=== PATIENT | male | born 1980 | race Caucasian/White ===

== ENCOUNTER 2017-10-16 17:15 | Inpatient (IN) | payer MEDICARE, MEDICAID ==
[2017-10-16 17:36] LABS: ABSOLUTE EOSINOPHILS # (AUTO) 0.4 10^3/uL (0.0-0.6); ABSOLUTE LYMPHOCYTES (AUTO) 1.7 10^3/uL (0.5-4.7); ABSOLUTE MONOCYTES (AUTO) 0.3 10^3/uL (0.1-1.4); ABSOLUTE NEUT (AUTO) 8.2 10^3/uL (1.7-8.2); BASOPHILS % (AUTO) 0.3 % (0-2); EOSINOPHILS % (AUTO) 3.4 % (0-6); HEMATOCRIT 39.4 % (37.9-51.0); HEMOGLOBIN 13.8 g/dL (13.5-17.0); LYMPHOCYTES % (AUTO) 16.3 % (13-45); MEAN CORPUSCULAR VOLUME 92 fl (80-97); MONOCYTES % (AUTO) 2.5 % (3-13); RED BLOOD COUNT 4.31 10^6/uL (4.35-5.55); SEGMENTED NEUTROPHILS % (AUTO) 77.5 % (42-78); WHITE BLOOD COUNT 10.6 10^3/uL (4.0-10.5)
[2017-10-16 17:48] LABS: ALANINE AMINOTRANSFERASE 25 U/L (21-72); ALBUMIN 3.6 g/dL (3.5-5.0); ALKALINE PHOSPHATASE 101 U/L (38-126); ANION GAP 17 (5-19); ASPARTATE AMINO TRANSFERASE 38 U/L (17-59); BILIRUBIN,TOTAL 1.1 mg/dL (0.2-1.3); BLOOD UREA NITROGEN 18 mg/dL (7-20); CALCIUM 8.8 mg/dL (8.4-10.2); CARBON DIOXIDE 27 mmol/L (22-30); CHLORIDE 101 mmol/L (98-107); CREATINE KINASE 201 U/L (55-170); CREATININE RESULT 0.97 mg/dL (0.52-1.25); GLUCOSE 96 mg/dL (75-110); POTASSIUM 3.3 mmol/L (3.6-5.0); SODIUM 144.9 mmol/L (137-145); TOTAL PROTEIN 7.4 g/dL (6.3-8.2)
--- NOTE | 2017-10-16 17:54 | ER Document Report ---
ED Respiratory Problem - General Chief Complaint: Respiratory Distress Stated Complaint: POSSIBLE PNEUMONIA Time Seen by Provider: 10/16/17 17:32 Notes: Patient is a 37-year-old male who presents today stating 4 days ago on he started to have some runny nose, congestion, fever, and cough. He states he went to his primary care physician on Tuesday and was started on Levaquin. No x- ray was performed. Patient states he has been having some increased shortness of breath since that time. EMS called and stated when they arrived on scene the patient was having shortness of breath satting 55% on room air. They provided duo nebs as well as Solu-Medrol. They stated that he had some wheezing initially which improved with the nebulizer. Patient does state he smokes but denies a history of asthma. When I asked directly about chest pain, he states he has some anterior chest discomfort "only when I move". Patient is wheelchair-bound since 2011 secondary to multiple back surgeries according to the patient. Patient denies any abdominal pain, swelling to the legs, vomiting , or diarrhea. 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 He states it is been slightly irritated since that time. He denies any change or increase in the lesions. TRAVEL OUTSIDE OF THE [place] IN LAST 30 DAYS: No - HPI Patient complains to provider of: Cough, Short of breath Onset: Other - See above Duration: Better, Continuous Initiating Event: Other - See above Quality of pain: Achy Severity: Severe Pain Level: 0 Context: Other - See above Short of Breath: Severe Chest pain/discomfort: Center Cough: Productive Sputum amount: Moderate Sputum color: Clear, Green EMS treatments: Bronchodilators, Oxygen, Solumedrol Associated symptoms: Other - See above Similar symptoms previously: No Recently seen / treated by doctor: No - Related Data Allergies/Adverse Reactions: No Known Allergies Allergy (Verified 01/08/13 18:43) Past Medical History - General Information source: Patient - Social History Smoking Status: Current Every Day Smoker Cigarette use (# per day): Yes Chew tobacco use (# tins/day): No Smoking Education Provided: No Frequency of alcohol use: None Family History: Reviewed & Not Pertinent - Past Medical History Cardiac Medical History: Reports: Hx Hypertension Pulmonary Medical History: Reports: Hx Bronchitis, Hx Pneumonia Endocrine Medical History: Reports: Hx Diabetes Mellitus Type 2 Psychiatric Medical History: Reports: Hx Anxiety, Hx Depression - Immunizations Hx Diphtheria, Pertussis, Tetanus Vaccination: Yes Review of Systems - Review of Systems Constitutional: Fever EENT: Nose congestion, Nose discharge. denies: Eye discharge Cardiovascular: Chest pain. denies: Palpitations, Heart racing, Syncope, Dizziness, Lightheaded Respiratory: Cough, Wheezing. denies: Hurts to breathe, Short of breath Gastrointestinal: denies: Vomiting Genitourinary: denies: Dysuria Musculoskeletal: denies: Leg swelling Skin: Other - no hives. denies: Rash Neurological/Psychological: Other - no slurred speech -: Yes All other systems reviewed and negative Physical Exam - Vital signs Interpretation: Normal Notes: Reviewed vital signs and nursing note as charted by RN. CONSTITUTIONAL: Alert and oriented and responds appropriately to questions. Patient is sitting in a tripod-like position having shortness of breath. He is speaking in 3-4 word sentences HEAD: Normocephalic; atraumatic EYES: PERRL ENT: Normal nose; bilateral nonpurulent nasal rhinorrhea; moist mucous membranes ; pharynx without lesions noted NECK: Supple without meningismus; non-tender CARD: Tachycardic and regular; no murmurs, no clicks, no rubs, no gallops; symmetric distal pulses; good capillary refill bilaterally RESP: Patient has obvious tachypnea. Patient has scattered rhonchi throughout both lung lamb, right greater than left. Minimal to no wheezing present. No obvious rales present ABD/GI: Normal bowel sounds; elevated BMI; soft, non-tender, no rebound, no guarding; no palpable organomegaly or masses GI/: Patient does have some mild excoriated erythema and lesions to the perineal region. There is no drainage, fluctuance, or induration. Patient denies any pain at this time upon palpation BACK: The back appears normal with old surgical scars present, and is non- tender to palpation, there is no CVA tenderness EXT: Normal ROM in all joints; non-tender to palpation; no cyanosis, no effusions, no edema SKIN: No acute lesions noted NEURO: Moves all extremities equally; Motor and sensory function intact Course - Re-evaluation Re-evalutation: 10/16/17 17:53 Given the above history and physical examination, we placed the patient immediately on the monitor and obtain an EKG. I have called respiratory to help the patient be placed on BiPAP. Patient is satting 95% on a nonrebreather. Lung sounds as recorded above. I am concerned about possible bacterial pneumonia, serious influenza, or other lung pathology. Given that the patient's pain to his chest is only with movement and coughing, with initially runny nose, congestion, cough, and fever, I believe pulmonary embolism is less likely at this time. 10/16/17 18:00 X-ray of the chest shows what appears to be a bilateral pneumonia. Given the possibility of MRSA, I will order Rocephin, azithromycin, and vancomycin. Labs as recorded. White blood cell count as recorded. Normal creatinine. Awaiting BNP. 10/16/17 18:07 Labs as recorded. Slightly increased BNP. Antibiotics have been started. The patient does have 2 IVs present. Lactic acid is increased. 10/16/17 18:11 EKG shows a heart of 118, sinus tachycardia, right bundle branch block, no obvious ST elevation or depression. Old EKG from December 2015 also shows a right bundle branch block. 10/16/17 18:14 Given the elevated BNP, I will not provide 30 cc/kg of intravenous fluid. 2 L have been ordered in total at this time. - Laboratory Result Diagrams: 10/16/17 17:20 10/16/17 17:20 Laboratory results interpreted by me: 10/16/17 10/16/17 10/16/17 17:20 17:20 17:20 WBC 10.6 H RBC 4.31 L RDW 15.0 H Monocytes % 2.5 L Potassium 3.3 L Lactic Acid Direct Bilirubin 1.0 H Creatine Kinase 201 H NT-Pro-B Natriuret Pep 955 H 10/16/17 17:20 WBC RBC RDW Monocytes % Potassium Lactic Acid 2.4 H Direct Bilirubin Creatine Kinase NT-Pro-B Natriuret Pep Critical Care Note - Critical Care Note Total time excluding time spent on procedures (mins): 45 Discharge - Discharge Clinical Impression: Hypoxia Bilateral pneumonia Qualifiers: Pneumonia type: due to unspecified organism Lung location: unspecified part of lung Qualified Code(s): J18.9 - Pneumonia, unspecified organism Sepsis Qualifiers: Sepsis type: sepsis due to unspecified organism Qualified Code(s): A41.9 - Sepsis, unspecified organism Condition: Serious Disposition: ADMITTED INPATIENT Admitting Provider: Hospitalist Unit Admitted: IMCU Referrals: NALLELY COLINDRES PA-C [Primary Care Provider] - Follow up as needed
[2017-10-16] MEDS ORDERED: AZITHROMYCIN INJ 500 MG VIAL IV ONE (17:58)
[2017-10-16] MEDS ORDERED: VANCOMYCIN HCL INJ 1000 MG VIAL IV ONE (17:58)
[2017-10-16] MEDS ORDERED: CEFTRIAXONE 1 GM/D5W RTU 1 GM/50 ML RTUPB IV ONE (17:58)
[2017-10-16 18:00] LABS: CREATINE KINASE MB 3.07 ng/mL (<4.55)
[2017-10-16 18:03] LABS: TROPONIN I 0.041 ng/mL
[2017-10-16] MEDS ORDERED: NORMAL SALINE 1000 ML 1,000 ML IV ONE (18:09)
[2017-10-16] MEDS ORDERED: IPRATROPIUM/ALBUTEROL 0.5-2.5 MG/3 ML AMPUL NEB SCH (18:15)
--- NOTE | 2017-10-16 18:15 | RADIOLOGY REPORT (SQ) ---
EXAM DESCRIPTION: CHEST PA/LAT COMPLETED DATE/TIME: 10/16/2017 5:56 pm REASON FOR STUDY: 9, SOB COMPARISON: 12/13/2015 EXAM PARAMETERS: NUMBER OF VIEWS: two views TECHNIQUE: Digital Frontal and Lateral radiographic views of the chest acquired. RADIATION DOSE: NA LIMITATIONS: none FINDINGS: LUNGS AND PLEURA: Scattered Patchy airspace opacities in both lungs. No pneumothorax. N o significant effusion. MEDIASTINUM AND HILAR STRUCTURES: Stable. HEART AND VASCULAR STRUCTURES: Stable. BONES: No acute findings. HARDWARE: Stable thoracic fusion hardware. OTHER: No other significant finding. IMPRESSION: Scattered Patchy airspace opacities in both lungs. TECHNICAL DOCUMENTATION: JOB ID: [id number] [place]-72 2010 [employer]- All Rights Reserved
[2017-10-16] MEDS ORDERED: ALBUTEROL SULFATE 0.083% NEB 2.5 MG/3 ML AMPUL NEB PRN (18:26)
[2017-10-16] MEDS ORDERED: ONDANSETRON HCL INJ/PF 4 MG/2 ML SDV IV PRN (18:26)
[2017-10-16] MEDS ORDERED: ONDANSETRON 4 MG TAB.RAPDIS PO PRN (18:26)
[2017-10-16] MEDS ORDERED: ACETAMINOPHEN 325 MG TABLET PO PRN (18:26)
[2017-10-16] MEDS ORDERED: INSULIN LISPRO 100 UNIT/ML 3 ML VIAL SUBCUT PRN (18:38)
[2017-10-16] MEDS ORDERED: GLUCAGON,HUMAN RECOMB 1 MG INJ IM PRN (18:38)
[2017-10-16] MEDS ORDERED: DEXTROSE 40% GEL 15 GM TUBE PO PRN ×2 (18:38)
[2017-10-16] MEDS ORDERED: DEXTROSE 50%-WATER 25 GM/50 ML DISP.SYRIN IV PRN ×2 (18:38)
--- NOTE | 2017-10-16 18:50 | PDOC H&P ---
History of Present Illness Admission Date/PCP: NALLELY COLINDRES PA-C Patient complains of: Shortness of breath History of Present Illness: ANKIT MERCER is a 37 year old male with a complicated past medical history including COPD diabetes and history of Adeline's gangrene who has been intubated several times previously because of respiratory distress who presents with shortness of breath. The patient reports that on he began to have a productive cough of green sputum and went to his primary care doctor and was given Levaquin. The patient has continued to have worsening cough as well as shortness of breath as well as some low-grade fevers. He has had no chest pain but has had wheezing. He denies any palpitations. Denies any orthopnea or PND. Denies any lower extremity edema. The patient reports that he called EMS when they arrived at his house his oxygen saturations were in the 70s. They since have improved on BiPAP. He is found to have bilateral pneumonia. Patient also has wheezing consistent with an acute COPD exacerbation. Past Medical History Cardiac Medical History: Reports: Hypertension Pulmonary Medical History: Reports: Bronchitis, Chronic Obstructive Pulmonary Disease (COPD), Pneumonia Neurological Medical History: Reports: None Endocrine Medical History: Reports: Diabetes Mellitus Type 2 Renal/ Medical History: Reports: None Malignancy Medical History: Reports: None GI Medical History: Reports: None Musculoskeltal Medical History: Reports: Arthritis, Other - Chronic back pain Skin Medical History: Reports: None Psychiatric Medical History: Reports: Depression Traumatic Medical History: Reports: None Past Surgical History Past Surgical History: Reports: Orthopedic Surgery - Back surgery Social History Information Source: Patient Lives with: Alone Smoking Status: Current Every Day Smoker Frequency of Alcohol Use: None Hx Recreational Drug Use: No Drugs: None Hx Prescription Drug Abuse: No - Advance Directive Resuscitation Status: Full Code Family History Family History: Mother 60 alive and has diabetes. Father at age 62 and had coronary artery disease. Parental Family History Reviewed: Yes Children Family History Reviewed: No Sibling(s) Family History Reviewed.: No Medication/Allergy Home Medications: Tramadol HCl [Ultram 50 mg Tablet] 50 mg PO Q4HP PRN #25 tablet 01/08/13 Albuterol Sulfate [Proair HFA] 8 gm .ROUTE PRN PRN 12/12/15 Baclofen [Baclofen 10 mg Tablet] 10 mg PO TID 12/12/15 Gabapentin [Gabapentin] 400 mg PO DAILY 12/12/15 Insulin Glargine,Hum.rec.anlog [Lantus Insulin 100 Unit/mL] 300 units SUBCUT PRN PRN 12/12/15 Lisinopril/Hydrochlorothiazide [Lisinopril-Hctz 20-25 mg Tab] 20 mg PO DAILY 03/22 Methadone HCl [Methadone HCl] 10 mg PO DAILY 12/12/15 Metoprolol Succinate [Toprol Xl 50 mg Tab.sr] 50 mg PO DAILY 12/12/15 Oxycodone HCl 10 mg PO DAILY 12/12/15 Sitagliptin Phos/Metformin HCl [Janumet 50-1,000 mg Tablet] 1 tab PO DAILY 12/12 Allergies/Adverse Reactions: No Known Allergies Allergy (Verified 01/08/13 18:43) Review of Systems Constitutional: PRESENT: chills, fever(s). ABSENT: headache(s) Eyes: ABSENT: visual disturbances Ears: ABSENT: hearing changes Cardiovascular: PRESENT: dyspnea on exertion. ABSENT: chest pain, edema, orthropnea, palpitations Respiratory: PRESENT: cough, dyspnea, sputum. ABSENT: hemoptysis Gastrointestinal: ABSENT: abdominal pain, constipation, diarrhea, hematemesis, hematochezia, nausea, vomiting Genitourinary: ABSENT: dysuria, hematuria Musculoskeletal: PRESENT: back pain Integumentary: ABSENT: rash, wounds Neurological: ABSENT: abnormal gait, abnormal speech, confusion, dizziness, focal weakness, syncope Psychiatric: PRESENT: anxiety Endocrine: ABSENT: cold intolerance, heat intolerance, polydipsia, polyuria Hematologic/Lymphatic: ABSENT: easy bleeding, easy bruising Physical Exam Vital Signs: Temp Pulse Resp BP Pulse Ox 22 H 100 10/16/17 18:34 10/16/17 18:34 General appearance: PRESENT: disheveled, mild distress, morbidly obese Head exam: PRESENT: atraumatic, normocephalic Eye exam: PRESENT: conjunctiva pink, EOMI, PERRLA. ABSENT: scleral icterus Ear exam: PRESENT: normal external ear exam Mouth exam: PRESENT: moist, tongue midline Neck exam: ABSENT: carotid bruit, JVD, lymphadenopathy, thyromegaly Respiratory exam: PRESENT: wheezes - Bilateral expiratory wheezes.. ABSENT: rales, rhonchi Cardiovascular exam: PRESENT: RRR. ABSENT: diastolic murmur, rubs, systolic murmur Pulses: PRESENT: normal dorsalis pedis pul GI/Abdominal exam: PRESENT: normal bowel sounds, soft. ABSENT: distended, guarding, mass, organolmegaly, rebound, tenderness Rectal exam: PRESENT: deferred Extremities exam: ABSENT: calf tenderness, clubbing, pedal edema Neurological exam: PRESENT: alert, awake, oriented to person, oriented to place , oriented to time, oriented to situation, CN II-XII grossly intact. ABSENT: motor sensory deficit Psychiatric exam: PRESENT: appropriate affect Skin exam: PRESENT: dry, intact, warm. ABSENT: cyanosis, rash Results Laboratory Results: 10/16/17 17:20 10/16/17 17:20 10/16/17 10/16/17 10/16/17 17:20 17:20 17:20 WBC 10.6 H RBC 4.31 L Hgb 13.8 Hct 39.4 MCV 92 MCH 32.0 MCHC 35.0 RDW 15.0 H Plt Count 227 Seg Neutrophils % 77.5 Lymphocytes % 16.3 Monocytes % 2.5 L Eosinophils % 3.4 Basophils % 0.3 Absolute Neutrophils 8.2 Absolute Lymphocytes 1.7 Absolute Monocytes 0.3 Absolute Eosinophils 0.4 Absolute Basophils 0.0 Sodium 144.9 Potassium 3.3 L Chloride 101 Carbon Dioxide 27 Anion Gap 17 BUN 18 Creatinine 0.97 Est GFR ( Amer) > 60 Est GFR (Non-Af Amer) > 60 Glucose 96 Lactic Acid 2.4 H Calcium 8.8 Total Bilirubin 1.1 AST 38 ALT 25 Alkaline Phosphatase 101 Total Protein 7.4 Albumin 3.6 10/16/17 10/16/17 17:20 17:20 Creatine Kinase 201 H CK-MB (CK-2) 3.07 Troponin I 0.041 NT-Pro-B Natriuret Pep 955 H Impressions: Chest X-Ray 10/16/17 17:33 IMPRESSION: Scattered Patchy airspace opacities in both lungs. Assessment & Plan - Diagnosis (1) Bilateral pneumonia Qualifiers: Pneumonia type: due to unspecified organism Lung location: unspecified part of lung Qualified Code(s): J18.9 - Pneumonia, unspecified organism Is this a current diagnosis for this admission?: Yes Plan: The patient was initially treated with Levaquin for the last several days. He is continued to worsen in spite of that. It may be because of the COPD that is worsened however we will change his antibiotics from Levaquin to Rocephin and Zithromax. Blood cultures have been obtained. (2) COPD exacerbation Is this a current diagnosis for this admission?: Yes Plan: The patient continues to smoke one half pack per day. We will give him Solu- Medrol along with antibiotics and nebulizers. Patient has been placed on BiPAP and is doing better. When he initially presented he was quite hypoxic. (3) Diabetes mellitus Is this a current diagnosis for this admission?: Yes Plan: The patient states he takes his Lantus as needed and takes his Janumet daily. We will hold the Janumet while hospitalized and start on 40 units of Lantus daily and cover with sliding scale insulin. (4) Hypertension Is this a current diagnosis for this admission?: Yes Plan: Patient is normally on Toprol. Will hold for now and restart once his wheezing improved slightly. (5) Chronic back pain Is this a current diagnosis for this admission?: Yes Plan: Patient is chronically on methadone and oxycodone. Will hold those for today and if his respiratory status improves hopefully tomorrow we can restart that. (6) Anxiety Is this a current diagnosis for this admission?: Yes (7) Tobacco abuse Is this a current diagnosis for this admission?: Yes Plan: Patient is encouraged to quit - Time Time Spent: 50 to 70 Minutes - Inpatient Certification Medical Necessity: Need Close Monitoring Due to Risk of Patient Decompensation, Need for IV Antibiotics
[2017-10-16 18:57] LABS: ARTERIAL BLOOD BASE EXCESS -0.8 mmol/L; ARTERIAL BLOOD O2 SATURATION 99.1 % (94-98)
[2017-10-16] MEDS: IPRATROPIUM/ALBUTEROL 0.5-2.5 MG/3 ML AMPUL NEB SCH (20:09)
[2017-10-16 20:45] LABS: APPEARANCE,URINE CLEAR; BILIRUBIN,URINE NEGATIVE (NEGATIVE); GLUCOSE, URINE NEGATIVE (NEGATIVE); KETONES,URINE NEGATIVE (NEGATIVE); LEUKOCYTE ESTERASE,URINE NEGATIVE (NEGATIVE); NITRITE,URINE NEGATIVE (NEGATIVE); PROTEIN,URINE 30 mg/dL (NEGATIVE)
[2017-10-16] MEDS: POTASSI CL 20 MEQ/50 ML RIDER 20 MEQ/50 ML RTUPB IV SCH ×2 (21:30→23:23)
--- NOTE | 2017-10-16 22:38 | EKG REPORT ---
SEVERITY:- ABNORMAL ECG - SINUS TACHYCARDIA RIGHT BUNDLE BRANCH BLOCK : Confirmed by: Omari Elena 16-Oct-2017 22:37:44
[2017-10-16] MEDS: METHYLPREDNISOLONE INJ 40 MG/1 ML SDV IV SCH (22:53)
[2017-10-16] MEDS: FAMOTIDINE 20 MG TABLET PO SCH (22:54)
[2017-10-17 05:39] LABS: HEMATOCRIT 32.9 % (37.9-51.0); HEMOGLOBIN 11.7 g/dL (13.5-17.0); HGB HCT DIFFERENCE 2.2; MEAN CORPUSCULAR HEMOGLOBIN 31.9 pg (27.0-33.4); MEAN CORPUSCULAR HGB CONC 35.5 g/dL (32.0-36.0); MEAN CORPUSCULAR VOLUME 90 fl (80-97); RED BLOOD COUNT 3.66 10^6/uL (4.35-5.55); RED CELL DISTRIBUTION WIDTH 14.8 % (11.5-14.0); WHITE BLOOD COUNT 5.9 10^3/uL (4.0-10.5)
[2017-10-17] MEDS ORDERED: INFLUENZA ADLT QUAD (36MOS+) 2017-18 VAC 0.5 ML SYR IM PRN (05:49)
[2017-10-17 05:51] LABS: ANION GAP 12 (5-19); BLOOD UREA NITROGEN 15 mg/dL (7-20); CALCIUM 8.2 mg/dL (8.4-10.2); CARBON DIOXIDE 24 mmol/L (22-30); CHLORIDE 105 mmol/L (98-107); CREATININE RESULT 0.59 mg/dL (0.52-1.25); GLUCOSE 175 mg/dL (75-110); MAGNESIUM 1.9 mg/dL (1.6-2.3); POTASSIUM 3.7 mmol/L (3.6-5.0); SODIUM 141.3 mmol/L (137-145)
[2017-10-17] MEDS: METHYLPREDNISOLONE INJ 40 MG/1 ML SDV IV SCH ×3 (06:43→21:11)
[2017-10-17] MEDS: IPRATROPIUM/ALBUTEROL 0.5-2.5 MG/3 ML AMPUL NEB SCH ×4 (08:21→20:22)
[2017-10-17] MEDS ORDERED: BACLOFEN 10 MG TABLET PO PRN (08:37)
[2017-10-17] MEDS ORDERED: ACETYLCYSTEINE 20% SOLN 800 MG/4 ML VIAL.NEB NEB ONE (09:00)
[2017-10-17] MEDS ORDERED: AZITHROMYCIN 500 MG in DEXTROSE 5%-WATER 250 ML IV SCH (10:00)
[2017-10-17] MEDS ORDERED: INSULIN GLARGINE,HUM.REC.ANLOG 300 UNIT/3 ML INSULN.PEN SUBCUT SCH (10:00)
[2017-10-17 10:10] LABS: ARTERIAL BLOOD BASE EXCESS 2.5 mmol/L; ARTERIAL BLOOD O2 SATURATION 99.2 % (94-98)
[2017-10-17] MEDS: FAMOTIDINE 20 MG TABLET PO SCH ×2 (10:40→21:11)
[2017-10-17] MEDS: ENOXAPARIN SODIUM INJ 40 MG/0.4 ML DISP.SYRIN SUBCUT SCH (10:50)
--- NOTE | 2017-10-17 11:47 | PDOC CONSULTATION ---
Consultation Consult Date: 10/17/17 Attending physician:: ALEJANDRO MUHAMMAD Consult reason:: resp failure History of Present Illness Admission Date/PCP: 10/16/17 18:26 History of Present Illness: ANKIT MERCER is a 37 year old male with a complicated past medical history including COPD diabetes and history of Adeline's gangrene who has been intubated several times previously because of respiratory distress who presents with shortness of breath. Patient admits to for 5 days prior to admission he had productive green cough and was subsequently treated with Levaquin this did not seem to improve he had progressive low-grade temp increasing dips and exertion at that time he presented to the emergency room after calling EMS where he was found to have a SaO2 in the 70s in the ER he was initially treated with BiPAP and this seemed to improve his dyspnea significantly subsequent radiograph showed that he had bilateral pneumonia. Past Medical History Cardiac Medical History: Reports: Hypertension Pulmonary Medical History: Reports: Bronchitis, Chronic Obstructive Pulmonary Disease (COPD), Pneumonia EENT Medical History: Denies: Ears, Nose Neurological Medical History: Reports: None Endocrine Medical History: Reports: Diabetes Mellitus Type 2, Obesity Denies: Gestational Diabetes Renal/ Medical History: Reports: None Denies: Nephrolithiasis Malignancy Medical History: Reports: None GI Medical History: Reports: None Musculoskeltal Medical History: Reports: Arthritis, Other - Chronic back pain Skin Medical History: Denies: Psoriasis Psychiatric Medical History: Reports: Depression Traumatic Medical History: Reports: None Denies: Traumatic Brain Injury Hematology: Denies: Sickle Cell Disease, Bleeding Tendencies Infectious Medical History: Denies: Hepatitis B, Hepatitis C Past Surgical History Past Surgical History: Reports: Orthopedic Surgery - Back surgery Social History Information Source: [facility] Records Lives with: Alone Smoking Status: Current Every Day Smoker Cigarettes Packs Per Day: 0.5 Passive smoke exposure as: Both Frequency of Alcohol Use: None Hx Recreational Drug Use: No Drugs: None Hx Prescription Drug Abuse: No - Advance Directive Resuscitation Status: Full Code Family History Parental Family History Reviewed: No Children Family History Reviewed: No Sibling(s) Family History Reviewed.: No Medication/Allergy Allergies/Adverse Reactions: No Known Allergies Allergy (Verified 01/08/13 18:43) Review of Systems ROS unobtainable: Due to mental status Physical Exam Vital Signs: Temp Pulse Resp BP Pulse Ox 97.4 F 82 21 H 122/59 L 100 10/17/17 08:00 10/17/17 08:00 10/17/17 08:00 10/17/17 08:00 10/17/17 08:00 Intake & Output 10/16/17 10/17/17 10/18/17 06:59 06:59 06:59 Output Total 600 Balance -600 Weight 157 kg General appearance: PRESENT: disheveled, morbidly obese, well-developed. ABSENT : no acute distress, cooperative, mild distress, obese, thin Head exam: PRESENT: atraumatic, normocephalic Eye exam: PRESENT: conjunctiva pale, EOMI. ABSENT: conjunctival injection, conjunctiva pink, nystagmus, periorbital swelling, scleral icterus Mouth exam: PRESENT: dry mucosa, neck supple, tongue midline. ABSENT: laceration, moist Neck exam: ABSENT: carotid bruit, JVD, lymphadenopathy, thyromegaly, tracheal deviation, tracheostomy Respiratory exam: PRESENT: decreased breath sounds, prolonged expiratory phas, rales, rhonchi, symmetrical, tachypnea, wheezes. ABSENT: chest wall tenderness , clear to auscultation dez, crackles, retraction, stridor Cardiovascular exam: PRESENT: RRR, +S1, +S2. ABSENT: irregular rhythm, rubs Pulses: PRESENT: normal radial pulses GI/Abdominal exam: PRESENT: normal bowel sounds, soft. ABSENT: distended, guarding, mass, organolmegaly, rebound, tenderness Extremities exam: ABSENT: clubbing, joint swelling Musculoskeletal exam: ABSENT: deformity, dislocation Neurological exam: PRESENT: awake Skin exam: PRESENT: dry, warm Results Laboratory Results: 10/17/17 05:02 10/17/17 05:02 10/16/17 10/16/17 10/16/17 18:30 20:16 22:10 WBC RBC Hgb Hct MCV MCH MCHC RDW Plt Count Carbonic Acid 1.08 HCO3/H2CO3 Ratio 21:1 ABG pH 7.43 ABG pCO2 35.8 ABG pO2 163.0 H ABG HCO3 23.1 ABG O2 Saturation 99.1 H ABG Base Excess -0.8 FiO2 75% Sodium Potassium Chloride Carbon Dioxide Anion Gap BUN Creatinine Est GFR ( Amer) Est GFR (Non-Af Amer) Glucose Lactic Acid 1.8 Calcium Magnesium Urine Color YELLOW Urine Appearance CLEAR Urine pH 5.0 Ur Specific Davidson 1.020 Urine Protein 30 H Urine Glucose (UA) NEGATIVE Urine Ketones NEGATIVE Urine Blood NEGATIVE Urine Nitrite NEGATIVE Ur Leukocyte Esterase NEGATIVE Urine WBC (Auto) 2 Urine RBC (Auto) 1 10/17/17 10/17/17 05:02 05:02 WBC 5.9 RBC 3.66 L Hgb 11.7 L D Hct 32.9 L MCV 90 MCH 31.9 MCHC 35.5 RDW 14.8 H Plt Count 169 Carbonic Acid HCO3/H2CO3 Ratio ABG pH ABG pCO2 ABG pO2 ABG HCO3 ABG O2 Saturation ABG Base Excess FiO2 Sodium 141.3 Potassium 3.7 Chloride 105 Carbon Dioxide 24 Anion Gap 12 BUN 15 Creatinine 0.59 Est GFR ( Amer) > 60 Est GFR (Non-Af Amer) > 60 Glucose 175 H Lactic Acid Calcium 8.2 L Magnesium 1.9 Urine Color Urine Appearance Urine pH Ur Specific Davidson Urine Protein Urine Glucose (UA) Urine Ketones Urine Blood Urine Nitrite Ur Leukocyte Esterase Urine WBC (Auto) Urine RBC (Auto) Impressions: Chest X-Ray 10/16/17 17:33 IMPRESSION: Scattered Patchy airspace opacities in both lungs. Assessment & Plan - Diagnosis (1) Acute and chronic respiratory failure ([id number]) Is this a current diagnosis for this admission?: Yes Plan: PAO2/FIO2 = 213 c/w ALI;Decrease FiO2 to keep saturation approximately 92% observe very closely if patient begins to tire out proceed with endotracheal intubation continue bronchodilator therapy as you have initiated (2) Tobacco abuse Is this a current diagnosis for this admission?: Yes Plan: Transdermal nicotine (3) Bilateral pneumonia Qualifiers: Pneumonia type: due to unspecified organism Lung location: unspecified part of lung Qualified Code(s): J18.9 - Pneumonia, unspecified organism Is this a current diagnosis for this admission?: Yes Plan: No positive cultures thus far difficult to produce sputum will initiate chest physiotherapy with postural drainage - Time Total Critical Time (Minutes): 55
--- NOTE | 2017-10-17 13:41 | PDOC CONSULTATION ---
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 Patient admits to for 5 days prior to admission he had productive green cough and was subsequently treated with Levaquin this did not seem to improve he had progressive low-grade temp increasing dips and exertion at that time he presented to the emergency room after calling EMS where he was found to have a SaO2 in the 70s in the ER he was initially treated with BiPAP and this seemed to improve his dyspnea significantly subsequent radiograph showed that he had bilateral pneumonia. Patient was cared for at an outlying institution for his Adeline's gangrene. He required several debridements operating room, and underwent closure by secondary intention. He has an area of skin breakdown. He does not have a colostomy. Past Medical History Cardiac Medical History: Reports: Hypertension Pulmonary Medical History: Reports: Bronchitis, Chronic Obstructive Pulmonary Disease (COPD), Pneumonia EENT Medical History: Denies: Ears, Nose Neurological Medical History: Reports: None Endocrine Medical History: Reports: Diabetes Mellitus Type 2, Obesity Denies: Gestational Diabetes Renal/ Medical History: Reports: None Denies: Nephrolithiasis Malignancy Medical History: Reports: None GI Medical History: Reports: None Musculoskeltal Medical History: Reports: Arthritis, Other - Chronic back pain Skin Medical History: Reports: None Denies: Psoriasis Psychiatric Medical History: Reports: Depression Traumatic Medical History: Reports: None Denies: Traumatic Brain Injury Hematology: Denies: Sickle Cell Disease, Bleeding Tendencies Infectious Medical History: Denies: Hepatitis B, Hepatitis C Past Surgical History Past Surgical History: Reports: Orthopedic Surgery - Back surgery Social History Lives with: Alone Smoking Status: Current Every Day Smoker Cigarettes Packs Per Day: 0.5 Frequency of Alcohol Use: None Hx Recreational Drug Use: No Drugs: None Hx Prescription Drug Abuse: No - Advance Directive Resuscitation Status: Full Code Family History Family History: Reviewed & Not Pertinent Parental Family History Reviewed: Yes Children Family History Reviewed: Yes Sibling(s) Family History Reviewed.: Yes Medication/Allergy Allergies/Adverse Reactions: No Known Allergies Allergy (Verified 01/08/13 18:43) Physical Exam Vital Signs: Temp Pulse Resp BP Pulse Ox 98.2 F 101 H 20 151/90 H 99 10/17/17 11:58 10/17/17 11:58 10/17/17 12:43 10/17/17 12:43 10/17/17 12:43 Intake & Output 10/16/17 10/17/17 10/18/17 06:59 06:59 06:59 Output Total 600 Balance -600 Weight 157 kg General appearance: PRESENT: other - Patient examined in the intensive care unit currently on BiPAP machine. Neurological exam: PRESENT: other - Grossly intact neurologically Focused psych exam: PRESENT: other - Follows commands appropriately Skin exam: PRESENT: other - Enrolled in the right lateral decubitus position. Findings are significant for epithelialized large area of tissue involving the perineum. There are 2 areas one half a centimeter wide by 6 cm long in the central to right perineum; going towards the base of scrotum are several open excoriated areas consistent with recent breakdown Results Laboratory Results: 10/17/17 05:02 10/17/17 05:02 10/16/17 10/16/17 10/16/17 18:30 20:16 22:10 WBC RBC Hgb Hct MCV MCH MCHC RDW Plt Count Carbonic Acid 1.08 HCO3/H2CO3 Ratio 21:1 ABG pH 7.43 ABG pCO2 35.8 ABG pO2 163.0 H ABG HCO3 23.1 ABG O2 Saturation 99.1 H ABG Base Excess -0.8 FiO2 75% Sodium Potassium Chloride Carbon Dioxide Anion Gap BUN Creatinine Est GFR ( Amer) Est GFR (Non-Af Amer) Glucose Lactic Acid 1.8 Calcium Magnesium Urine Color YELLOW Urine Appearance CLEAR Urine pH 5.0 Ur Specific [place] 1.020 Urine Protein 30 H Urine Glucose (UA) NEGATIVE Urine Ketones NEGATIVE Urine Blood NEGATIVE Urine Nitrite NEGATIVE Ur Leukocyte Esterase NEGATIVE Urine WBC (Auto) 2 Urine RBC (Auto) 1 10/17/17 10/17/17 10/17/17 05:02 05:02 09:45 WBC 5.9 RBC 3.66 L Hgb 11.7 L D Hct 32.9 L MCV 90 MCH 31.9 MCHC 35.5 RDW 14.8 H Plt Count 169 Carbonic Acid 1.43 H HCO3/H2CO3 Ratio 19:1 ABG pH 7.39 ABG pCO2 47.4 H ABG pO2 180.7 H ABG HCO3 28.0 H ABG O2 Saturation 99.2 H ABG Base Excess 2.5 FiO2 60% Sodium 141.3 Potassium 3.7 Chloride 105 Carbon Dioxide 24 Anion Gap 12 BUN 15 Creatinine 0.59 Est GFR ( Amer) > 60 Est GFR (Non-Af Amer) > 60 Glucose 175 H Lactic Acid Calcium 8.2 L Magnesium 1.9 Urine Color Urine Appearance Urine pH Ur Specific Carson Urine Protein Urine Glucose (UA) Urine Ketones Urine Blood Urine Nitrite Ur Leukocyte Esterase Urine WBC (Auto) Urine RBC (Auto) 10/17/17 13:00 WBC RBC Hgb Hct MCV MCH MCHC RDW Plt Count Carbonic Acid Cancelled HCO3/H2CO3 Ratio Cancelled ABG pH Cancelled ABG pCO2 Cancelled ABG pO2 Cancelled ABG HCO3 Cancelled ABG O2 Saturation Cancelled ABG Base Excess Cancelled FiO2 Cancelled Sodium Potassium Chloride Carbon Dioxide Anion Gap BUN Creatinine Est GFR ( Amer) Est GFR (Non-Af Amer) Glucose Lactic Acid Calcium Magnesium Urine Color Urine Appearance Urine pH Ur Specific Carson Urine Protein Urine Glucose (UA) Urine Ketones Urine Blood Urine Nitrite Ur Leukocyte Esterase Urine WBC (Auto) Urine RBC (Auto) Impressions: Chest X-Ray 10/16/17 17:33 IMPRESSION: Scattered Patchy airspace opacities in both lungs. Assessment & Plan - Diagnosis (1) Disruption of perineal wound Is this a current diagnosis for this admission?: Yes Plan: Patient has a history of Adeline's gangrene, with wound healing following serial debridements, and closure by secondary intention.; Recent open areas consistent with wound breakdown Recommendations: 1. Continue pressure offloading, keeping the hernia well aerated 2. Suggest soapy water wash, and then Allevyn dressing application. 3. Return to advanced wound center on an outpatient basis if needed - Time Time Spent: 30 to 50 Minutes Smoking Cessation Education: 3 to 10 minutes
[2017-10-17 14:04] LABS: ARTERIAL BLOOD BASE EXCESS 4.8 mmol/L; ARTERIAL BLOOD O2 SATURATION 95.7 % (94-98)
[2017-10-17] MEDS ORDERED: METHADONE HCL 10 MG TABLET PO ONE ×2 (15:30→18:45)
--- NOTE | 2017-10-17 15:57 | PDOC PROGRESS REPORT ---
Subjective Progress Note for:: 10/17/17 Subjective:: Patient is on BiPAP and reports he is having significant amount of back pain today. Reason For Visit: COPD EXACERBATION Physical Exam Vital Signs: Temp Pulse Resp BP Pulse Ox 98.2 F 89 23 H 126/73 H 95 10/17/17 11:58 10/17/17 14:00 10/17/17 14:43 10/17/17 14:43 10/17/17 14:43 Intake & Output 10/16/17 10/17/17 10/18/17 06:59 06:59 06:59 Output Total 600 450 Balance -600 -450 Weight 157 kg 157 kg General appearance: PRESENT: mild distress Eye exam: PRESENT: conjunctiva pink. ABSENT: scleral icterus Mouth exam: PRESENT: moist, tongue midline Neck exam: PRESENT: JVD Respiratory exam: PRESENT: wheezes. ABSENT: rales, rhonchi Cardiovascular exam: PRESENT: irregular rhythm. ABSENT: diastolic murmur, rubs , systolic murmur GI/Abdominal exam: PRESENT: normal bowel sounds, soft. ABSENT: distended, guarding, mass, organolmegaly, rebound, tenderness Extremities exam: PRESENT: pedal edema. ABSENT: calf tenderness, clubbing Neurological exam: PRESENT: alert, awake, oriented to person, oriented to place , oriented to time, oriented to situation, CN II-XII grossly intact. ABSENT: motor sensory deficit Psychiatric exam: PRESENT: flat affect Skin exam: PRESENT: other - Patient has a stage II sacral decubitus. He also has a open linear ulcer on his scrotum midline. Results Laboratory Results: 10/17/17 05:02 10/17/17 05:02 10/16/17 10/16/17 10/16/17 18:30 20:16 22:10 WBC RBC Hgb Hct MCV MCH MCHC RDW Plt Count Carbonic Acid 1.08 HCO3/H2CO3 Ratio 21:1 ABG pH 7.43 ABG pCO2 35.8 ABG pO2 163.0 H ABG HCO3 23.1 ABG O2 Saturation 99.1 H ABG Base Excess -0.8 FiO2 75% Sodium Potassium Chloride Carbon Dioxide Anion Gap BUN Creatinine Est GFR ( Amer) Est GFR (Non-Af Amer) Glucose Lactic Acid 1.8 Calcium Magnesium Urine Color YELLOW Urine Appearance CLEAR Urine pH 5.0 Ur Specific [place] 1.020 Urine Protein 30 H Urine Glucose (UA) NEGATIVE Urine Ketones NEGATIVE Urine Blood NEGATIVE Urine Nitrite NEGATIVE Ur Leukocyte Esterase NEGATIVE Urine WBC (Auto) 2 Urine RBC (Auto) 1 10/17/17 10/17/17 10/17/17 05:02 05:02 09:45 WBC 5.9 RBC 3.66 L Hgb 11.7 L D Hct 32.9 L MCV 90 MCH 31.9 MCHC 35.5 RDW 14.8 H Plt Count 169 Carbonic Acid 1.43 H HCO3/H2CO3 Ratio 19:1 ABG pH 7.39 ABG pCO2 47.4 H ABG pO2 180.7 H ABG HCO3 28.0 H ABG O2 Saturation 99.2 H ABG Base Excess 2.5 FiO2 60% Sodium 141.3 Potassium 3.7 Chloride 105 Carbon Dioxide 24 Anion Gap 12 BUN 15 Creatinine 0.59 Est GFR ( Amer) > 60 Est GFR (Non-Af Amer) > 60 Glucose 175 H Lactic Acid Calcium 8.2 L Magnesium 1.9 Urine Color Urine Appearance Urine pH Ur Specific [place] Urine Protein Urine Glucose (UA) Urine Ketones Urine Blood Urine Nitrite Ur Leukocyte Esterase Urine WBC (Auto) Urine RBC (Auto) 10/17/17 10/17/17 13:00 13:55 WBC RBC Hgb Hct MCV MCH MCHC RDW Plt Count Carbonic Acid Cancelled 1.19 HCO3/H2CO3 Ratio Cancelled 24:1 ABG pH Cancelled 7.48 H ABG pCO2 Cancelled 39.7 ABG pO2 Cancelled 73.5 L ABG HCO3 Cancelled 28.6 H ABG O2 Saturation Cancelled 95.7 ABG Base Excess Cancelled 4.8 FiO2 Cancelled 40% Sodium Potassium Chloride Carbon Dioxide Anion Gap BUN Creatinine Est GFR ( Amer) Est GFR (Non-Af Amer) Glucose Lactic Acid Calcium Magnesium Urine Color Urine Appearance Urine pH Ur Specific [place] Urine Protein Urine Glucose (UA) Urine Ketones Urine Blood Urine Nitrite Ur Leukocyte Esterase Urine WBC (Auto) Urine RBC (Auto) Impressions: Chest X-Ray 10/16/17 17:33 IMPRESSION: Scattered Patchy airspace opacities in both lungs. Assessment & Plan - Diagnosis (1) Bilateral pneumonia Qualifiers: Pneumonia type: due to unspecified organism Lung location: unspecified part of lung Qualified Code(s): J18.9 - Pneumonia, unspecified organism Is this a current diagnosis for this admission?: Yes Plan: Continue with Rocephin and Zithromax. Pulmonary has been consulted. (2) COPD exacerbation Is this a current diagnosis for this admission?: Yes Plan: The patient continues to smoke one half pack per day. Continue with BiPAP and steroids. He has had previous intubations. Pulmonary has been consulted. (3) Diabetes mellitus Is this a current diagnosis for this admission?: Yes Plan: The patient states he takes his Lantus as needed and takes his Janumet daily. Continue with Lantus daily and sliding scale insulin. Will hold the Janumet (4) Hypertension Is this a current diagnosis for this admission?: Yes Plan: Patient is normally on Toprol. Will hold for now and restart once his wheezing improved slightly. (5) Chronic back pain Is this a current diagnosis for this admission?: Yes Plan: Patient is chronically on methadone and oxycodone. Will restart his methadone.. (6) Anxiety Is this a current diagnosis for this admission?: Yes (7) Tobacco abuse Is this a current diagnosis for this admission?: Yes Plan: Patient is encouraged to quit (8) Sacral decubitus ulcer Is this a current diagnosis for this admission?: Yes Plan: Surgery has evaluated this patient. - Time Time Spent with patient: 25-34 minutes - Inpatient Certification Medical Necessity: Need Close Monitoring Due to Risk of Patient Decompensation, Need for IV Antibiotics
[2017-10-17] MEDS: CEFTRIAXONE 1 GM/D5W RTU 1 GM/50 ML RTUPB IV SCH (17:06)
[2017-10-17] MEDS: AZITHROMYCIN 500 MG in DEXTROSE 5%-WATER 250 ML IV SCH (17:30)
[2017-10-17] MEDS: ACETYLCYSTEINE 20% SOLN 800 MG/4 ML VIAL.NEB NEB SCH (20:22)
[2017-10-17] MEDS ORDERED: METHADONE HCL 10 MG TABLET PO SCH (22:00)
[2017-10-18] MEDS: METHADONE HCL 10 MG TABLET PO SCH ×3 (02:21→17:02)
[2017-10-18 04:04] LABS: ABSOLUTE MONOCYTES (AUTO) 0.2 10^3/uL (0.1-1.4); ABSOLUTE NEUT (AUTO) 5.6 10^3/uL (1.7-8.2); BASOPHILS % (AUTO) 0.3 % (0-2); EOSINOPHILS % (AUTO) 0.1 % (0-6); HEMOGLOBIN 10.8 g/dL (13.5-17.0); HGB HCT DIFFERENCE 1.4; LYMPHOCYTES % (AUTO) 14.7 % (13-45); MEAN CORPUSCULAR HEMOGLOBIN 31.6 pg (27.0-33.4); MEAN CORPUSCULAR HGB CONC 34.9 g/dL (32.0-36.0); MEAN CORPUSCULAR VOLUME 91 fl (80-97); MONOCYTES % (AUTO) 2.5 % (3-13); RED BLOOD COUNT 3.42 10^6/uL (4.35-5.55); RED CELL DISTRIBUTION WIDTH 14.5 % (11.5-14.0); SEGMENTED NEUTROPHILS % (AUTO) 82.4 % (42-78); WHITE BLOOD COUNT 6.8 10^3/uL (4.0-10.5)
[2017-10-18 04:35] LABS: ALANINE AMINOTRANSFERASE 23 U/L (21-72); ALKALINE PHOSPHATASE 68 U/L (38-126); ANION GAP 7 (5-19); ASPARTATE AMINO TRANSFERASE 18 U/L (17-59); BILIRUBIN,DIRECT 0.4 mg/dL (0.0-0.4); BILIRUBIN,TOTAL 0.4 mg/dL (0.2-1.3); BLOOD UREA NITROGEN 21 mg/dL (7-20); CALCIUM 8.4 mg/dL (8.4-10.2); CARBON DIOXIDE 29 mmol/L (22-30); CHLORIDE 106 mmol/L (98-107); CREATININE RESULT 0.64 mg/dL (0.52-1.25); GLUCOSE 138 mg/dL (75-110); MAGNESIUM 2.4 mg/dL (1.6-2.3); SODIUM 141.9 mmol/L (137-145); TOTAL PROTEIN 6.1 g/dL (6.3-8.2)
[2017-10-18] MEDS: METHYLPREDNISOLONE INJ 40 MG/1 ML SDV IV SCH ×3 (05:43→21:41)
[2017-10-18 05:51] LABS: ARTERIAL BLOOD BASE EXCESS 4.6 mmol/L; ARTERIAL BLOOD O2 SATURATION 98.8 % (94-98)
--- NOTE | 2017-10-18 06:44 | RADIOLOGY REPORT (SQ) ---
EXAM DESCRIPTION: CHEST SINGLE VIEW CLINICAL HISTORY: multi-lobe pna COMPARISON: None. FINDINGS: Single frontal view of the chest. Are is not enlarged. Slight improved aeration bilaterally with mild residual bilateral airspace opacities. Low lung volumes. Leads overlie the chest. No new osseous abnormalities. Posterior bridger and screw fixation of the thoracic spine. Upper abdominal soft tissues are unremarkable. IMPRESSION: 1. Slight improved aeration bilaterally with patchy residual bilateral airspace opacities.
[2017-10-18] MEDS: IPRATROPIUM/ALBUTEROL 0.5-2.5 MG/3 ML AMPUL NEB SCH ×4 (08:22→20:34)
[2017-10-18] MEDS: ACETYLCYSTEINE 20% SOLN 800 MG/4 ML VIAL.NEB NEB SCH ×2 (08:22→20:34)
[2017-10-18] MEDS: FAMOTIDINE 20 MG TABLET PO SCH ×2 (08:40→21:42)
--- NOTE | 2017-10-18 08:56 | PDOC PROGRESS REPORT ---
Subjective Progress Note for:: 10/18/17 Subjective:: This is a follow-up visit for acute respiratory failure. Yesterday the patient was caught trying to hide pills that a friend of his head brought to him. He tells me that at home he is on methadone and oxycodone. He states that he had his friend bring him his methadone here for him to take. The nurse caught him and confiscated his medications. The patient and nursing staff confirmed the same recounting of events. Patient is already receiving methadone here. He is receiving 10 mg instead of 15 mg due to his respiratory status and because he was close to intubation yesterday. Patient states that he does feel better with his breathing today. Reason For Visit: COPD EXACERBATION Physical Exam Vital Signs: Temp Pulse Resp BP Pulse Ox 96.8 F L 78 30 H 127/70 H 100 10/18/17 08:00 10/18/17 08:00 10/18/17 08:00 10/18/17 08:00 10/18/17 08:00 Intake & Output 10/17/17 10/18/17 10/19/17 06:59 06:59 06:59 Output Total 600 1450 Balance -600 -1450 Weight 157 kg 154.6 kg GENERAL: This is a well-developed morbidly obese white male resting in bed currently on bilevel Pap and in no acute distress. There is a bit of malodorous smell in the room. HEART: Regular rate and rhythm. No murmurs, rubs or gallops. LUNGS: Diminished breath sounds bilaterally with equal rise and fall of the chest. ABDOMEN: Soft, nontender, nondistended with normoactive bowel sounds : Adeline gangrene was present wound is currently open and clean. Small stage I sacral decubitus ulcer at the top of the gluteal fold EXTREMETIES: No clubbing, cyanosis or edema. 2+ peripheral pulses bilaterally. NEURO: Awake, alert and oriented 3. Cranial nerves II through XII are grossly intact. Results Laboratory Results: 10/18/17 03:56 10/18/17 03:56 10/17/17 10/17/17 10/17/17 09:45 13:00 13:55 WBC RBC Hgb Hct MCV MCH MCHC RDW Plt Count Seg Neutrophils % Lymphocytes % Monocytes % Eosinophils % Basophils % Absolute Neutrophils Absolute Lymphocytes Absolute Monocytes Absolute Eosinophils Absolute Basophils Carbonic Acid 1.43 H Cancelled 1.19 HCO3/H2CO3 Ratio 19:1 Cancelled 24:1 ABG pH 7.39 Cancelled 7.48 H ABG pCO2 47.4 H Cancelled 39.7 ABG pO2 180.7 H Cancelled 73.5 L ABG HCO3 28.0 H Cancelled 28.6 H ABG O2 Saturation 99.2 H Cancelled 95.7 ABG Base Excess 2.5 Cancelled 4.8 FiO2 60% Cancelled 40% Sodium Potassium Chloride Carbon Dioxide Anion Gap BUN Creatinine Est GFR ( Amer) Est GFR (Non-Af Amer) Glucose Lactic Acid Calcium Magnesium Total Bilirubin AST ALT Alkaline Phosphatase Total Protein Albumin 10/18/17 10/18/17 10/18/17 03:56 03:56 03:56 WBC 6.8 RBC 3.42 L Hgb 10.8 L Hct 31.0 L MCV 91 MCH 31.6 MCHC 34.9 RDW 14.5 H Plt Count 167 Seg Neutrophils % 82.4 H Lymphocytes % 14.7 Monocytes % 2.5 L Eosinophils % 0.1 Basophils % 0.3 Absolute Neutrophils 5.6 Absolute Lymphocytes 1.0 Absolute Monocytes 0.2 Absolute Eosinophils 0.0 Absolute Basophils 0.0 Carbonic Acid HCO3/H2CO3 Ratio ABG pH ABG pCO2 ABG pO2 ABG HCO3 ABG O2 Saturation ABG Base Excess FiO2 Sodium 141.9 Potassium 4.0 Chloride 106 Carbon Dioxide 29 Anion Gap 7 BUN 21 H Creatinine 0.64 Est GFR ( Amer) > 60 Est GFR (Non-Af Amer) > 60 Glucose 138 H Lactic Acid 1.0 Calcium 8.4 Magnesium 2.4 H Total Bilirubin 0.4 AST 18 ALT 23 Alkaline Phosphatase 68 Total Protein 6.1 L Albumin 3.0 L 10/18/17 05:40 WBC RBC Hgb Hct MCV MCH MCHC RDW Plt Count Seg Neutrophils % Lymphocytes % Monocytes % Eosinophils % Basophils % Absolute Neutrophils Absolute Lymphocytes Absolute Monocytes Absolute Eosinophils Absolute Basophils Carbonic Acid 1.32 HCO3/H2CO3 Ratio 22:1 ABG pH 7.44 ABG pCO2 43.7 ABG pO2 134.8 H ABG HCO3 29.2 H ABG O2 Saturation 98.8 H ABG Base Excess 4.6 FiO2 40% Sodium Potassium Chloride Carbon Dioxide Anion Gap BUN Creatinine Est GFR ( Amer) Est GFR (Non-Af Amer) Glucose Lactic Acid Calcium Magnesium Total Bilirubin AST ALT Alkaline Phosphatase Total Protein Albumin Impressions: Chest X-Ray 10/18/17 06:00 IMPRESSION: 1. Slight improved aeration bilaterally with patchy residual bilateral airspace opacities. Assessment & Plan - Diagnosis (1) Acute and chronic respiratory failure ([id number]) Is this a current diagnosis for this admission?: Yes Plan: Multifactorial with underlying COPD, bilateral pneumonia. Treatment of individual illnesses as outlined below. Continue nebulizer treatments and bilevel Pap. Consider intubation if necessary. (2) Bilateral pneumonia Qualifiers: Pneumonia type: due to unspecified organism Lung location: lower lobe of lung Qualified Code(s): J18.9 - Pneumonia, unspecified organism Is this a current diagnosis for this admission?: Yes Plan: There is likely a community-acquired pneumonia with gram-positive organisms or atypicals. Continue Rocephin as well as Zithromax. (3) COPD exacerbation Is this a current diagnosis for this admission?: Yes Plan: Continue azithromycin and Rocephin. Continue Solu-Medrol. Continue bilevel Pap. Patient has had the need to be intubated in the past and may need to be intubated again if his respiratory status continues to decline. Dr. Montiel is following. (4) Chronic back pain Is this a current diagnosis for this admission?: Yes Plan: Patient is currently on two thirds the dose of his home methadone. Please see plan below. (5) Diabetes mellitus Qualifiers: Diabetes mellitus type: type 2 Is this a current diagnosis for this admission?: Yes Plan: Patient's insulin was recently reduced secondary to n.p.o. status. Patient feels better from a respiratory standpoint and would like to try eating. He may have a diabetic diet with q. before meals at bedtime finger sticks. We will leave his Lantus as is for now. He may not be able to tolerate being off of the bilevel Pap. Sliding scale insulin is available should he need it. Patient is also on Solu-Medrol and his blood sugars while on this have been below 200. (6) Hypertension Is this a current diagnosis for this admission?: Yes Plan: The patient is on lisinopril HCTZ. This has not been restarted at this point. The patient's blood pressures have been very reasonable from 120s-130s. (7) Sacral decubitus ulcer Qualifiers: Pressure ulcer stage: stage 1 Qualified Code(s): L89.151 - Pressure ulcer of sacral region, stage 1 Is this a current diagnosis for this admission?: Yes Plan: Continue local wound care (8) Tobacco abuse Is this a current diagnosis for this admission?: Yes Plan: Smoking cessation is advised. (9) Opioid dependence Is this a current diagnosis for this admission?: Yes Plan: The patient was caught hoarding home medications. These were confiscated. Specifically it was the patient's methadone and oxycodone. His dose is currently reduced to 10 mg instead of 15 mg 3 times a day. We will need to verify his home doses and the patient will need to stabilize in terms of his respiratory status prior to resuming home doses. (10) Anxiety Is this a current diagnosis for this admission?: Yes (11) Adeline gangrene Plan: Patient was seen by general surgery service. The wound is clean. Continue local wound care. (12) Obesity Qualifiers: Obesity classification: adult class 3 (BMI >= 40) Body mass index: BMI 45.0 -49.9 Is this a current diagnosis for this admission?: Yes - Time Time Spent with patient: 35 or more minutes
[2017-10-18] MEDS: ENOXAPARIN SODIUM INJ 40 MG/0.4 ML DISP.SYRIN SUBCUT SCH (09:27)
[2017-10-18] MEDS: INSULIN GLARGINE,HUM.REC.ANLOG 300 UNIT/3 ML INSULN.PEN SUBCUT SCH (10:32)
[2017-10-18 12:49] LABS: URINE BARBITURATES SCREEN NEGATIVE; URINE PHENCYCLIDINE SCREEN NEGATIVE
[2017-10-18 13:24] LABS: URINE METHADONE SCREEN UNCONFIRMED POSITIVE; URINE OPIATES LOW UNCONFIRMED POSITIVE
--- NOTE | 2017-10-18 16:36 | PDOC PROGRESS REPORT ---
Subjective Progress Note for:: 10/18/17 Subjective:: A little better Reason For Visit: COPD EXACERBATION Physical Exam Vital Signs: Temp Pulse Resp BP Pulse Ox 96.8 F L 78 30 H 127/70 H 100 10/18/17 08:00 10/18/17 08:00 10/18/17 08:00 10/18/17 08:00 10/18/17 08:00 Intake & Output 10/17/17 10/18/17 10/19/17 06:59 06:59 06:59 Output Total 600 1450 Balance -600 -1450 Weight 157 kg 154.6 kg General appearance: PRESENT: no acute distress, cooperative, disheveled, morbidly obese, well-developed. ABSENT: hard of hearing, mild distress, obese, severe distress, thin Head exam: PRESENT: atraumatic, normocephalic Eye exam: PRESENT: conjunctiva pale, EOMI. ABSENT: conjunctival injection, conjunctiva pink, nystagmus, periorbital swelling, scleral icterus Mouth exam: PRESENT: dry mucosa, neck supple, tongue midline. ABSENT: laceration, moist Neck exam: ABSENT: carotid bruit, JVD, lymphadenopathy, thyromegaly, tracheal deviation, tracheostomy Respiratory exam: PRESENT: decreased breath sounds, prolonged expiratory phas, rhonchi, symmetrical, unlabored, wheezes. ABSENT: accessory muscle use, chest wall tenderness, clear to auscultation dez, crackles, rales, retraction, stridor , tachypnea Cardiovascular exam: PRESENT: RRR, +S1, +S2. ABSENT: irregular rhythm, rubs Pulses: PRESENT: normal radial pulses GI/Abdominal exam: PRESENT: normal bowel sounds, soft. ABSENT: distended, guarding, mass, organolmegaly, rebound, tenderness Extremities exam: ABSENT: calf tenderness, clubbing, joint swelling Musculoskeletal exam: ABSENT: deformity, dislocation Neurological exam: PRESENT: alert, awake Psychiatric exam: PRESENT: flat affect Skin exam: PRESENT: dry, warm Results Laboratory Results: 10/18/17 03:56 10/18/17 03:56 10/17/17 10/17/17 10/17/17 09:45 13:00 13:55 WBC RBC Hgb Hct MCV MCH MCHC RDW Plt Count Seg Neutrophils % Lymphocytes % Monocytes % Eosinophils % Basophils % Absolute Neutrophils Absolute Lymphocytes Absolute Monocytes Absolute Eosinophils Absolute Basophils Carbonic Acid 1.43 H Cancelled 1.19 HCO3/H2CO3 Ratio 19:1 Cancelled 24:1 ABG pH 7.39 Cancelled 7.48 H ABG pCO2 47.4 H Cancelled 39.7 ABG pO2 180.7 H Cancelled 73.5 L ABG HCO3 28.0 H Cancelled 28.6 H ABG O2 Saturation 99.2 H Cancelled 95.7 ABG Base Excess 2.5 Cancelled 4.8 FiO2 60% Cancelled 40% Sodium Potassium Chloride Carbon Dioxide Anion Gap BUN Creatinine Est GFR ( Amer) Est GFR (Non-Af Amer) Glucose Lactic Acid Calcium Magnesium Total Bilirubin AST ALT Alkaline Phosphatase Total Protein Albumin 10/18/17 10/18/17 10/18/17 03:56 03:56 03:56 WBC 6.8 RBC 3.42 L Hgb 10.8 L Hct 31.0 L MCV 91 MCH 31.6 MCHC 34.9 RDW 14.5 H Plt Count 167 Seg Neutrophils % 82.4 H Lymphocytes % 14.7 Monocytes % 2.5 L Eosinophils % 0.1 Basophils % 0.3 Absolute Neutrophils 5.6 Absolute Lymphocytes 1.0 Absolute Monocytes 0.2 Absolute Eosinophils 0.0 Absolute Basophils 0.0 Carbonic Acid HCO3/H2CO3 Ratio ABG pH ABG pCO2 ABG pO2 ABG HCO3 ABG O2 Saturation ABG Base Excess FiO2 Sodium 141.9 Potassium 4.0 Chloride 106 Carbon Dioxide 29 Anion Gap 7 BUN 21 H Creatinine 0.64 Est GFR ( Amer) > 60 Est GFR (Non-Af Amer) > 60 Glucose 138 H Lactic Acid 1.0 Calcium 8.4 Magnesium 2.4 H Total Bilirubin 0.4 AST 18 ALT 23 Alkaline Phosphatase 68 Total Protein 6.1 L Albumin 3.0 L 10/18/17 05:40 WBC RBC Hgb Hct MCV MCH MCHC RDW Plt Count Seg Neutrophils % Lymphocytes % Monocytes % Eosinophils % Basophils % Absolute Neutrophils Absolute Lymphocytes Absolute Monocytes Absolute Eosinophils Absolute Basophils Carbonic Acid 1.32 HCO3/H2CO3 Ratio 22:1 ABG pH 7.44 ABG pCO2 43.7 ABG pO2 134.8 H ABG HCO3 29.2 H ABG O2 Saturation 98.8 H ABG Base Excess 4.6 FiO2 40% Sodium Potassium Chloride Carbon Dioxide Anion Gap BUN Creatinine Est GFR ( Amer) Est GFR (Non-Af Amer) Glucose Lactic Acid Calcium Magnesium Total Bilirubin AST ALT Alkaline Phosphatase Total Protein Albumin Impressions: Chest X-Ray 10/18/17 06:00 IMPRESSION: 1. Slight improved aeration bilaterally with patchy residual bilateral airspace opacities. Assessment & Plan - Diagnosis (1) Acute and chronic respiratory failure ([id number]) Is this a current diagnosis for this admission?: Yes Plan: Significantly improvedPaO2/FiO2 =135/.4 = 337 (2) Tobacco abuse Is this a current diagnosis for this admission?: Yes Plan: Transdermal nicotine (3) Bilateral pneumonia Qualifiers: Pneumonia type: due to unspecified organism Lung location: lower lobe of lung Qualified Code(s): J18.9 - Pneumonia, unspecified organism Is this a current diagnosis for this admission?: Yes - Time Total Critical Time (Minutes): 30
[2017-10-18] MEDS: CEFTRIAXONE 1 GM/D5W RTU 1 GM/50 ML RTUPB IV SCH (17:03)
[2017-10-18] MEDS: AZITHROMYCIN 500 MG in DEXTROSE 5%-WATER 250 ML IV SCH (17:03)
[2017-10-18] MEDS ORDERED: OXYCODONE HCL IR 5 MG TABLET PO ONE (22:29)
[2017-10-18] MEDS ORDERED: NALOXONE HCL INJ/PF 0.4 MG/1 ML SDV IV PRN (22:30)
[2017-10-19] MEDS: METHADONE HCL 10 MG TABLET PO SCH (02:15)
[2017-10-19 03:56] LABS: ABSOLUTE LYMPHOCYTES (AUTO) 1.1 10^3/uL (0.5-4.7); ABSOLUTE MONOCYTES (AUTO) 0.2 10^3/uL (0.1-1.4); ABSOLUTE NEUT (AUTO) 4.7 10^3/uL (1.7-8.2); BASOPHILS % (AUTO) 0.1 % (0-2); EOSINOPHILS % (AUTO) 0.1 % (0-6); HEMATOCRIT 33.6 % (37.9-51.0); HEMOGLOBIN 11.6 g/dL (13.5-17.0); HGB HCT DIFFERENCE 1.2; LYMPHOCYTES % (AUTO) 18.5 % (13-45); MEAN CORPUSCULAR HEMOGLOBIN 31.6 pg (27.0-33.4); MEAN CORPUSCULAR HGB CONC 34.6 g/dL (32.0-36.0); MEAN CORPUSCULAR VOLUME 91 fl (80-97); MONOCYTES % (AUTO) 3.2 % (3-13); RED BLOOD COUNT 3.68 10^6/uL (4.35-5.55); RED CELL DISTRIBUTION WIDTH 14.9 % (11.5-14.0); SEGMENTED NEUTROPHILS % (AUTO) 78.1 % (42-78)
[2017-10-19 04:11] LABS: ANION GAP 9 (5-19); BLOOD UREA NITROGEN 26 mg/dL (7-20); CALCIUM 8.9 mg/dL (8.4-10.2); CARBON DIOXIDE 30 mmol/L (22-30); CHLORIDE 104 mmol/L (98-107); CREATININE RESULT 0.72 mg/dL (0.52-1.25); GLUCOSE 135 mg/dL (75-110); MAGNESIUM 2.4 mg/dL (1.6-2.3); POTASSIUM 4.3 mmol/L (3.6-5.0); SODIUM 142.8 mmol/L (137-145)
[2017-10-19] MEDS: METHYLPREDNISOLONE INJ 40 MG/1 ML SDV IV SCH (06:23)
[2017-10-19] MEDS: IPRATROPIUM/ALBUTEROL 0.5-2.5 MG/3 ML AMPUL NEB SCH ×2 (08:09→11:20)
[2017-10-19] MEDS: ACETYLCYSTEINE 20% SOLN 800 MG/4 ML VIAL.NEB NEB SCH (08:09)
--- NOTE | 2017-10-19 10:54 | PDOC DISCHARGE SUMMARY ---
General - Admit/Disc Date/PCP Admission Date/Primary Care Provider: 10/16/17 18:26 Discharge Date: 10/19/17 - Discharge Diagnosis (1) Acute and chronic respiratory failure ([id number]) Is this a current diagnosis for this admission?: Yes (2) Bilateral pneumonia Is this a current diagnosis for this admission?: Yes Summary: continue abx to completion. (3) COPD exacerbation Is this a current diagnosis for this admission?: Yes Summary: continue steroid taper (4) Chronic back pain Is this a current diagnosis for this admission?: Yes Summary: continue home medications (5) Diabetes mellitus Is this a current diagnosis for this admission?: Yes Summary: continue lantus at home and fu with pcp (6) Hypertension Is this a current diagnosis for this admission?: Yes Summary: continue home meds (7) Sacral decubitus ulcer Is this a current diagnosis for this admission?: Yes Summary: continue wound care at wound clinic (8) Tobacco abuse Is this a current diagnosis for this admission?: Yes Summary: smoking cessation is advised (9) Opioid dependence Is this a current diagnosis for this admission?: Yes Summary: continue home medications (10) Anxiety Is this a current diagnosis for this admission?: Yes (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 (12) Obesity Is this a current diagnosis for this admission?: Yes Summary: weight loss through dietary changes. - Additional Information Resuscitation Status: Full Code Home Medications: Albuterol Sulfate [Ventolin HFA MDI 18 GM] 2 puff IN Q6HP PRN 10/17/17 Baclofen [Baclofen 10 mg Tablet] 20 mg PO Q8 10/17/17 Gabapentin [Neurontin 300 mg Capsule] 600 mg PO Q8 10/17/17 Insulin Glargine,Hum.rec.anlog [Lantus Solostar] 40 units SQ QHS 10/17/17 Lisinopril/Hydrochlorothiazide [Lisinopril-Hctz 20-25 mg Tab] 1 tab PO DAILY 09/23 Methadone HCl [Dolophine 10 mg Tablet] 15 mg PO Q8 10/17/17 Metoprolol Tartrate [Lopressor 50 mg Tablet] 50 mg PO BIDBS 10/17/17 Oxycodone HCl [Oxycontin Sr 10 mg Tablet] 10 mg PO Q6HP PRN 10/17/17 Sitagliptin Phos/Metformin HCl [Janumet 50-1,000 mg Tablet] 1 tab PO BID Levofloxacin [Levaquin 750 mg Tablet] 750 mg PO DAILY #5 tablet 10/19/17 Prednisone 20 mg PO ASDIR PRN #15 tablet 10/19/17 History of Present Illness History of Present Illness: ANKIT MERCER is a 37 year old white male who came in for respiratory failure due to bilateral pneumonia and copd exacerbation. See details of admission as outlined below from the admitting physician. Admission Date/PCP: NALLELY COLINDRES PA-C Patient complains of: Shortness of breath History of Present Illness: ANKIT MERCER is a 37 year old male with a complicated past medical history including COPD diabetes and history of Adeline's gangrene who has been intubated several times previously because of respiratory distress who presents with shortness of breath. The patient reports that on he began to have a productive cough of green sputum and went to his primary care doctor and was given Levaquin. The patient has continued to have worsening cough as well as shortness of breath as well as some low-grade fevers. He has had no chest pain but has had wheezing. He denies any palpitations. Denies any orthopnea or PND. Denies any lower extremity edema. The patient reports that he called EMS when they arrived at his house his oxygen saturations were in the 70s. They since have improved on BiPAP. He is found to have bilateral pneumonia. Patient also has wheezing consistent with an acute COPD exacerbation. Hospital Course Hospital Course: Patient was admitted to the hospital on bilevel Pap. He remained on this over the course of the next 24 hours. When trying to wean it off the the patient had sharp declination in his oxygen saturation down to the 70s. He was started on Solu-Medrol and placed on Rocephin and azithromycin. With these interventions the patient did much better. He was able to be weaned off of bilevel Pap. The day prior to discharge the patient was on nasal cannula oxygen and tolerated this all day. This morning when walking the patient is off of all oxygen support. He states that he feels well and feels that he can go home. He states that he usually ambulates with a walker; sometimes he uses a 4 prong cane to help transfer to the wheelchair. The patient will need to follow with his primary care physician within a week. He would need to complete antibiotics as well as a steroid taper. Physical Exam Vital Signs: Temp Pulse Resp BP Pulse Ox 98.5 F 64 18 132/76 H 98 10/19/17 04:00 10/19/17 08:09 10/19/17 08:09 10/19/17 06:05 10/19/17 08:09 Pulse Oximeter Nocturnal Start: 10/18/17 19: 22 Freq: RTQ4 Status: Complete Document 10/19/17 08:00 LDA (Rec: 10/19/17 08:25 LDA [email or web address]) Nocturnal Pulse Oximetry Equipment Usage Equipment Discontinued Continuous SpO2 Machine # 10 Intake & Output 10/18/17 10/19/17 10/20/17 06:59 06:59 06:59 Intake Total 300 1420 Output Total 1450 2280 Balance -1150 -860 Weight 154.6 kg 155.6 kg GENERAL: This is a well-developed morbidly obese white male sitting up in bed without oxygen. HEART: Regular rate and rhythm. No murmurs, rubs or gallops. LUNGS: Diminished breath sounds bilaterally with equal rise and fall of the chest. Patient is not on O2 any longer ABDOMEN: Soft, nontender, nondistended with normoactive bowel sounds : deferred today EXTREMETIES: No clubbing, cyanosis or edema. 2+ peripheral pulses bilaterally. NEURO: Awake, alert and oriented 3. Cranial nerves II through XII are grossly intact. Results Laboratory Results: 10/19/17 03:48 10/19/17 03:48 10/19/17 10/19/17 03:48 03:48 WBC 6.0 RBC 3.68 L Hgb 11.6 L Hct 33.6 L MCV 91 MCH 31.6 MCHC 34.6 RDW 14.9 H Plt Count 162 Seg Neutrophils % 78.1 H Lymphocytes % 18.5 Monocytes % 3.2 Eosinophils % 0.1 Basophils % 0.1 Absolute Neutrophils 4.7 Absolute Lymphocytes 1.1 Absolute Monocytes 0.2 Absolute Eosinophils 0.0 Absolute Basophils 0.0 Sodium 142.8 Potassium 4.3 Chloride 104 Carbon Dioxide 30 Anion Gap 9 BUN 26 H Creatinine 0.72 Est GFR ( Amer) > 60 Est GFR (Non-Af Amer) > 60 Glucose 135 H Calcium 8.9 Magnesium 2.4 H Impressions: Chest X-Ray 10/18/17 06:00 IMPRESSION: 1. Slight improved aeration bilaterally with patchy residual bilateral airspace opacities. Qualifiers PATEINT BEING DISCHARGED WITH ANY OF THE FOLLOWING DIAGNOSIS?: No Plan Time Spent: Less than 30 Minutes
[2017-10-19] MEDS: FAMOTIDINE 20 MG TABLET PO SCH (11:18)
[2017-10-19] MEDS: ENOXAPARIN SODIUM INJ 40 MG/0.4 ML DISP.SYRIN SUBCUT SCH (11:18)
[2017-10-19 11:31] VITALS: BP 134/72
[2017-10-19] MEDS: INSULIN GLARGINE,HUM.REC.ANLOG 300 UNIT/3 ML INSULN.PEN SUBCUT SCH (12:04)
[2017-10-19] MEDS ORDERED: METHADONE HCL 10 MG TABLET PO SCH (14:00)
--- NOTE | 2017-10-20 13:06 | PDOC PROGRESS REPORT ---
Subjective Progress Note for:: 10/19/17 Subjective:: Improving Reason For Visit: COPD EXACERBATION Physical Exam Vital Signs: Temp Pulse Resp BP Pulse Ox 98.5 F 67 13 132/76 H 98 10/19/17 04:00 10/18/17 22:00 10/19/17 06:05 10/19/17 06:05 10/19/17 06:05 Pulse Oximeter Nocturnal Start: 10/18/17 19: 22 Freq: RTQ4 Status: Active Document 10/19/17 03:13 EAL (Rec: 10/19/17 04:15 EAL [email or web address]) Nocturnal Pulse Oximetry Equipment Usage Equipment in Use Oxygen Delivery Method (includes room AVAP air) O2 Sat by Pulse Oximetry (92-100) 99 Continuous SpO2 Discontinued No Continuous SpO2 Machine # 10 Intake & Output 10/18/17 10/19/17 10/20/17 06:59 06:59 06:59 Intake Total 300 1420 Output Total 1450 2280 Balance -1150 -860 Weight 154.6 kg 155.6 kg General appearance: PRESENT: no acute distress, cooperative, disheveled, well- developed. ABSENT: hard of hearing, mild distress, severe distress Head exam: PRESENT: atraumatic, normocephalic Eye exam: PRESENT: conjunctiva pale, EOMI. ABSENT: conjunctival injection, conjunctiva pink, nystagmus, periorbital swelling, scleral icterus Mouth exam: PRESENT: dry mucosa, neck supple. ABSENT: laceration, moist Neck exam: ABSENT: carotid bruit, JVD, lymphadenopathy, thyromegaly, tracheal deviation, tracheostomy Respiratory exam: PRESENT: decreased breath sounds, prolonged expiratory phas, rales, retraction, rhonchi, symmetrical, unlabored, wheezes. ABSENT: accessory muscle use, chest wall tenderness, clear to auscultation dez, crackles, stridor , tachypnea Cardiovascular exam: PRESENT: RRR, +S1, +S2. ABSENT: irregular rhythm, rubs Pulses: PRESENT: normal radial pulses GI/Abdominal exam: PRESENT: normal bowel sounds, soft. ABSENT: distended, guarding, mass, organolmegaly, rebound, tenderness Extremities exam: ABSENT: calf tenderness, clubbing Musculoskeletal exam: ABSENT: deformity, dislocation Neurological exam: PRESENT: alert, awake Psychiatric exam: PRESENT: normal mood Skin exam: PRESENT: dry, warm Results Laboratory Results: 10/19/17 03:48 10/19/17 03:48 10/19/17 10/19/17 03:48 03:48 WBC 6.0 RBC 3.68 L Hgb 11.6 L Hct 33.6 L MCV 91 MCH 31.6 MCHC 34.6 RDW 14.9 H Plt Count 162 Seg Neutrophils % 78.1 H Lymphocytes % 18.5 Monocytes % 3.2 Eosinophils % 0.1 Basophils % 0.1 Absolute Neutrophils 4.7 Absolute Lymphocytes 1.1 Absolute Monocytes 0.2 Absolute Eosinophils 0.0 Absolute Basophils 0.0 Sodium 142.8 Potassium 4.3 Chloride 104 Carbon Dioxide 30 Anion Gap 9 BUN 26 H Creatinine 0.72 Est GFR ( Amer) > 60 Est GFR (Non-Af Amer) > 60 Glucose 135 H Calcium 8.9 Magnesium 2.4 H Impressions: Chest X-Ray 10/18/17 06:00 IMPRESSION: 1. Slight improved aeration bilaterally with patchy residual bilateral airspace opacities. Assessment & Plan - Diagnosis (1) Acute and chronic respiratory failure ([id number]) Is this a current diagnosis for this admission?: Yes Plan: No filter changer the last 24 hours (2) Tobacco abuse Is this a current diagnosis for this admission?: Yes Plan: Transdermal nicotine (3) Bilateral pneumonia Qualifiers: Pneumonia type: due to unspecified organism Lung location: lower lobe of lung Qualified Code(s): J18.9 - Pneumonia, unspecified organism Is this a current diagnosis for this admission?: Yes Plan: Still no positive cultures
[2017-10-23 00:38] LABS: OPIATE CONFIRMATION Negative (Cutoff=200)
== END 2017-10-19 12:08 | disposition home or self-care (01) | DRG 190 ==
LOC: ER 17:15 → EH 18:26 → ICU 10-17 03:40
PROVIDERS: ADMIT Internal Medicine; ATTEND Internal Medicine
PROC: 5A09357 Assistance with Respiratory Ventilation, Less than 24 Consecutive Hours, Continuous Positive Airway Pressure (ICD-10-PCS; principal; 2017-10-16)
PROC: 3E0F73Z Introduction of Anti-inflammatory into Respiratory Tract, Via Natural or Artificial Opening (ICD-10-PCS; 2017-10-17)
PROC: 3E0234Z Introduction of Serum, Toxoid and Vaccine into Muscle, Percutaneous Approach (ICD-10-PCS; 2017-10-19)
DX: J44.1 Chronic obstructive pulmonary disease with (acute) exacerbation (principal); J18.9 Pneumonia, unspecified organism; J96.20 Acute and chronic respiratory failure, unspecified whether with hypoxia or hypercapnia; Z68.42 Body mass index [BMI] 45.0-49.9, adult; T81.31XA Disruption of external operation (surgical) wound, not elsewhere classified, initial encounter; Z23 Encounter for immunization; J44.0 Chronic obstructive pulmonary disease with (acute) lower respiratory infection; G89.29 Other chronic pain; M54.9 Dorsalgia, unspecified; E11.9 Type 2 diabetes mellitus without complications; I10 Essential (primary) hypertension; F17.210 Nicotine dependence, cigarettes, uncomplicated; F41.9 Anxiety disorder, unspecified; N49.3 Fournier gangrene; E66.01 Morbid (severe) obesity due to excess calories; M19.90 Unspecified osteoarthritis, unspecified site; F32.9 Major depressive disorder, single episode, unspecified; Z60.2 Problems related to living alone; L89.152 Pressure ulcer of sacral region, stage 2; N50.89 Other specified disorders of the male genital organs; I45.10 Unspecified right bundle-branch block; Z79.891 Long term (current) use of opiate analgesic; Z99.3 Dependence on wheelchair; Z79.899 Other long term (current) drug therapy; Z79.4 Long term (current) use of insulin; Z83.3 Family history of diabetes mellitus; Z82.49 Family history of ischemic heart disease and other diseases of the circulatory system
CPT/HCPCS: 36415; 36600; 71010; 71020; 80048; 80053; 80307; 80361; 81001; 81332; 82550; 82553; 82803; 82962; 83605; 83735; 83880; 84484; 85025; 85027; 87804; 90686; 93005; 93010; 94660; 94667; 94668; 94762; 99291; G6056; J0456; J0696; J1650; J1815; J2920; J3370; J3480; J7030; J7060; J7620

== ENCOUNTER 2018-10-09 17:13 | Inpatient (IN) | payer MEDICARE, MEDICAID ==
--- NOTE | 2018-10-09 17:31 | ER Document Report ---
ED Respiratory Problem - General Stated Complaint: SHORTNESS OF BREATH Time Seen by Provider: 10/09/18 17:30 Mode of Arrival: Stretcher Information source: Patient TRAVEL OUTSIDE OF THE [place] IN LAST 30 DAYS: No - HPI Patient complains to provider of: COPD, Cough, Short of breath Onset: This morning Duration: Worse/persistent Context: Hx COPD, Smoker Short of Breath: Severe Chest pain/discomfort: Tightness Cough: Nonproductive At home treatment: Bronchodilators Associated symptoms: Congestion, Cough, Fever, Short of breath Notes: Patient is a 38-year-old male with a history of COPD, diabetes, hypertension, who continues to smoke approximately 1/2 pack/day, presents to the emergency room today via EMS for respiratory distress, initial oxygenation via EMS was 74 % on room air, EMS placed him on a nonrebreather and pulse ox went up to 88%, he also reports a fever of 104 today, took 3 BC powders prior to coming in, as well as right upper quadrant abdominal pain and a nonproductive cough, he denies chest pain, no dysuria or hematuria, no nausea, vomiting or diarrhea, patient reports he used albuterol treatments at home which provided him with minimal intermittent relief - Related Data Allergies/Adverse Reactions: No Known Allergies Allergy (Verified 10/09/18 17:56) Past Medical History - General Information source: Patient - Social History Smoking Status: Current Every Day Smoker Family History: Reviewed & Not Pertinent - Past Medical History Cardiac Medical History: Reports: Hx Hypertension Pulmonary Medical History: Reports: Hx Bronchitis, Hx COPD, Hx Pneumonia Endocrine Medical History: Reports: Hx Diabetes Mellitus Type 2 Renal/ Medical History: Denies: Hx Peritoneal Dialysis Musculoskeletal Medical History: Reports Hx Arthritis Skin Medical History: Denies Hx Psoriasis Psychiatric Medical History: Reports: Hx Anxiety, Hx Depression Traumatic Medical History: Denies: Hx Traumatic Brain Injury Past Surgical History: Reports: Hx Orthopedic Surgery - Back surgery - Immunizations Hx Diphtheria, Pertussis, Tetanus Vaccination: Yes Review of Systems - Review of Systems Constitutional: Fever EENT: No symptoms reported Cardiovascular: No symptoms reported Respiratory: See HPI Gastrointestinal: See HPI Genitourinary: No symptoms reported Male Genitourinary: No symptoms reported Musculoskeletal: No symptoms reported Skin: No symptoms reported Hematologic/Lymphatic: No symptoms reported Neurological/Psychological: No symptoms reported -: Yes All other systems reviewed and negative Physical Exam - Vital signs Vitals: Temp Pulse Resp BP Pulse Ox 99.4 F 110 H 19 125/57 L 88 L 10/09/18 17:15 10/09/18 17:15 10/09/18 17:15 10/09/18 17:15 10/09/18 17:15 Interpretation: Tachycardic, Hypoxic - General General appearance: Alert In distress: Moderate - HEENT Head: Normocephalic, Atraumatic Eyes: Normal Conjunctiva: Normal Extraocular movements intact: Yes Eyelashes: Normal Pupils: PERRL Pharynx: Normal Neck: Normal - Respiratory Respiratory status: Respiratory distress, Depressed respirations, Labored, Tachypnea Chest status: Nontender Breath sounds: Decreased air movement, Nonproductive cough, Rhonchi, Wheezing Chest palpation: Normal - Cardiovascular Rhythm: Regular, Tachycardia Heart sounds: Normal auscultation Murmur: No - Abdominal Inspection: Morbidly Obese Distension: No distension Bowel sounds: Normal Tenderness: Tender - Right upper quadrant Organomegaly: No organomegaly - Back Back: Normal, Nontender - Extremities General upper extremity: Normal inspection, Nontender, Normal color, Normal ROM , Normal temperature General lower extremity: Normal inspection, Nontender, Normal color, Normal ROM , Normal temperature, Normal weight bearing. No: Keren's sign - Neurological Neuro grossly intact: Yes Cognition: Normal Orientation: AAOx4 Aviva Coma Scale Eye Opening: Spontaneous Aviva Coma Scale Verbal: Oriented [place] Coma Scale Motor: Obeys Commands Aviva Coma Scale Total: 15 Speech: Normal Motor strength normal: LUE, RUE, LLE, RLE Sensory: Normal - Psychological Associated symptoms: Normal affect, Normal mood - Skin Skin Temperature: Warm Skin Moisture: Dry Skin Color: Normal Course - Re-evaluation Re-evalutation: 10/09/18 19:52 Patient symptoms improved significantly with BiPAP placement, imaging findings consistent with bilateral lung opacities, likely pneumonitis, given his symptomatology on arrival he will and on BiPAP, will receive IV antibiotics and be admitted to the hospitalist service for further evaluation and treatment, patient was discussed with Dr. Galvez who is in agreement with this plan, plan discussed with patient who is in agreement as well - Vital Signs Vital signs: Temp Pulse Resp BP Pulse Ox 99.4 F 110 H 24 H 122/74 95 10/09/18 17:15 10/09/18 17:15 10/09/18 19:01 10/09/18 19:01 10/09/18 19:01 - Laboratory Result Diagrams: 10/09/18 17:19 10/09/18 17:19 Laboratory results interpreted by me: 10/09/18 10/09/18 10/09/18 17:19 17:19 17:19 WBC 12.1 H RBC 3.72 L Hgb 13.0 L Hct 36.7 L MCV 99 H MCH 35.0 H RDW 17.3 H Seg Neutrophils % 79.2 H Absolute Neutrophils 9.6 H PT 16.0 H VBG pCO2 VBG HCO3 Carbon Dioxide 19 L BUN 34 H Glucose 127 H POC Glucose Direct Bilirubin 0.7 H ALT 14 L Urine Bilirubin Urine Urobilinogen 10/09/18 10/09/18 10/09/18 17:19 17:26 19:22 WBC RBC Hgb Hct MCV MCH RDW Seg Neutrophils % Absolute Neutrophils PT VBG pCO2 31.2 L VBG HCO3 18.9 L Carbon Dioxide BUN Glucose POC Glucose 139 H Direct Bilirubin ALT Urine Bilirubin SMALL H Urine Urobilinogen 4.0 H - Diagnostic Test Radiology reviewed: Image reviewed, Reports reviewed - EKG Interpretation by Me EKG shows normal: Sinus rhythm Rate: Tachycardia Critical Care Note - Critical Care Note Total time excluding time spent on procedures (mins): 45 Comments: Patient arrived in respiratory distress, hypoxic with nonrebreather in place, requiring BiPAP placement, multiple interventions and close observation as well as admission to the [facility] [place] - Discharge Clinical Impression: Bilateral pneumonia, Acute and chronic respiratory failure ([id number]), Hypoxia, COPD exacerbation, Obesity Condition: Serious Disposition: ADMITTED INPATIENT Admitting Provider: Hospitalist Unit Admitted: [facility]
[2018-10-09 17:36] LABS: ABSOLUTE BASOPHILS # (AUTO) 0.1 10^3/uL (0.0-0.2); ABSOLUTE EOSINOPHILS # (AUTO) 0.2 10^3/uL (0.0-0.6); ABSOLUTE LYMPHOCYTES (AUTO) 1.8 10^3/uL (0.5-4.7); ABSOLUTE MONOCYTES (AUTO) 0.4 10^3/uL (0.1-1.4); ABSOLUTE NEUT (AUTO) 9.6 10^3/uL (1.7-8.2); EOSINOPHILS % (AUTO) 1.3 % (0-6); HEMATOCRIT 36.7 % (37.9-51.0); MEAN CORPUSCULAR HGB CONC 35.4 g/dL (32.0-36.0); MEAN CORPUSCULAR VOLUME 99 fl (80-97); MONOCYTES % (AUTO) 3.5 % (3-13); PLATELET COUNT 252 10^3/uL (150-450); RED BLOOD COUNT 3.72 10^6/uL (4.35-5.55); RED CELL DISTRIBUTION WIDTH 17.3 % (11.5-14.0); SEGMENTED NEUTROPHILS % (AUTO) 79.2 % (42-78); TOTAL CELLS COUNTED % (AUTO) 100 %; WHITE BLOOD COUNT 12.1 10^3/uL (4.0-10.5)
[2018-10-09 17:40] LABS: VENOUS BLOOD BASE EXCESS -4.3 mmol/L; VENOUS BLOOD HCO3 18.9 mmol/L (20-32); VENOUS BLOOD PCO2 31.2 mmHg (35-63); VENOUS BLOOD PH 7.4 (7.30-7.42)
[2018-10-09 17:48] LABS: INTERNATIONAL RATION (INR) 1.21
[2018-10-09 17:55] LABS: ALANINE AMINOTRANSFERASE 14 U/L (21-72); ALBUMIN 3.8 g/dL (3.5-5.0); ALKALINE PHOSPHATASE 110 U/L (38-126); ANION GAP 17 (5-19); ASPARTATE AMINO TRANSFERASE 53 U/L (17-59); BILIRUBIN,DIRECT 0.7 mg/dL (0.0-0.4); BILIRUBIN,TOTAL 0.8 mg/dL (0.2-1.3); BLOOD UREA NITROGEN 34 mg/dL (7-20); CALCIUM 9.3 mg/dL (8.4-10.2); CARBON DIOXIDE 19 mmol/L (22-30); CHLORIDE 105 mmol/L (98-107); GLUCOSE 127 mg/dL (75-110); POTASSIUM 4.4 mmol/L (3.6-5.0); SODIUM 141.4 mmol/L (137-145); TOTAL PROTEIN 7.5 g/dL (6.3-8.2)
[2018-10-09 18:06] LABS: NT PRO BNP 104 pg/mL (<125); TROPONIN I < 0.012 ng/mL
--- NOTE | 2018-10-09 18:36 | EKG REPORT ---
SEVERITY:- ABNORMAL ECG - SINUS TACHYCARDIA RIGHT BUNDLE BRANCH BLOCK : Confirmed by: Omari Elena 09-Oct-2018 18:36:14
--- NOTE | 2018-10-09 18:37 | RADIOLOGY REPORT (SQ) ---
EXAM DESCRIPTION: CHEST SINGLE VIEW COMPLETED DATE/TIME: 10/09/2018 6:30 pm REASON FOR STUDY: SOB COMPARISON: 10/16/2017 EXAM PARAMETERS: NUMBER OF VIEWS: One view. TECHNIQUE: Single frontal radiographic view of the chest acquired. RADIATION DOSE: NA LIMITATIONS: None. FINDINGS: LUNGS AND PLEURA: Scattered opacities through the lungs. MEDIASTINUM AND HILAR STRUCTURES: No masses. Contour normal. HEART AND VASCULAR STRUCTURES: Heart normal in size. Normal vasculature. BONES: No acute findings. HARDWARE: Extensive spine hardware. OTHER: No other significant finding. IMPRESSION: Bilateral pneumonitis. TECHNICAL DOCUMENTATION: JOB ID: [id number] [employer]- All Rights Reserved Reading location - IP/workstation name: [email or web address]
[2018-10-09] MEDS ORDERED: AZITHROMYCIN INJ 500 MG VIAL IV ONE (18:43)
[2018-10-09] MEDS ORDERED: CEFTRIAXONE 1 GM/D5W RTU 1 GM/50 ML RTUPB IV ONE (18:43)
[2018-10-09] MEDS ORDERED: IBUPROFEN 600 MG TABLET PO ONE (19:01)
[2018-10-09] MEDS ORDERED: NORMAL SALINE 1000 ML 1,000 ML IV ONE (19:01)
[2018-10-09 19:38] LABS: APPEARANCE,URINE CLEAR; BILIRUBIN,URINE SMALL (NEGATIVE); COLOR,URINE AMBER; GLUCOSE, URINE NEGATIVE (NEGATIVE); KETONES,URINE NEGATIVE (NEGATIVE); LEUKOCYTE ESTERASE,URINE NEGATIVE (NEGATIVE); NITRITE,URINE NEGATIVE (NEGATIVE); PROTEIN,URINE NEGATIVE (NEGATIVE); URINE SPECIFIC GRAVITY 1.021
[2018-10-09 19:52] LABS: A TYPE INFLUENZA AG NEGATIVE (NEGATIVE); B INFLUENZA AG NEGATIVE (NEGATIVE)
[2018-10-09] MEDS ORDERED: PROMETHAZINE HCL INJ 25 MG/1 ML VIAL IV PRN (20:24)
[2018-10-09] MEDS ORDERED: TEMAZEPAM 15 MG CAPSULE PO PRN (20:24)
[2018-10-09] MEDS ORDERED: MAG HYDROX/AL HYDROX/SIMETH SUSP 30 ML UDCUP PO PRN (20:24)
[2018-10-09] MEDS ORDERED: ACETAMINOPHEN 325 MG TABLET PO PRN (20:24)
[2018-10-09] MEDS ORDERED: LEVALBUTEROL HCL NEB 0.63 MG/3 ML AMPUL NEB PRN (20:24)
[2018-10-09] MEDS ORDERED: NORMAL SALINE 1000 ML 1,000 ML IV PRN (20:24)
[2018-10-09] MEDS ORDERED: PROMETHAZINE HCL 25 MG TABLET PO PRN (20:24)
[2018-10-09] MEDS ORDERED: DEXTROSE 40% GEL 15 GM TUBE PO PRN ×2 (20:34)
[2018-10-09] MEDS ORDERED: DEXTROSE 50%-WATER 25 GM/50 ML DISP.SYRIN IV PRN ×2 (20:34)
[2018-10-09] MEDS ORDERED: GLUCAGON,HUMAN RECOMB 1 MG INJ IM PRN (20:34)
[2018-10-09] MEDS ORDERED: OXYCODONE HCL SR 10 MG TABLET PO PRN (20:51)
[2018-10-09] MEDS ORDERED: NICOTINE 14 MG/24 HR PATCH.TD24 TD PRN (20:51)
--- NOTE | 2018-10-09 20:51 | PDOC H&P ---
History of Present Illness Admission Date/PCP: 10/09/18 20:14 NALLELY COLINDRES PA-C Patient complains of: Shortness of breath History of Present Illness: ANKIT MERCER is a 38 year old male With medical history remarkable for hypertension, COPD not on home oxygen, diabetes mellitus, smoker half pack per day. Patient tells me that his symptoms started 2 days ago with progressive shortness of breath associated with cough with whitish sputum, bilateral wheezing. 2 days symptoms were so severe that he decided to call EMS, upon EMS arrival his oxygen saturation was 74% on room air, initially was placed on nonrebreather and the pulse oximeter went up to 88%. He reports fever of 104 today, took 3 BC powders prior to come to the ED. Denies chills, nausea, vomiting, chest pain, abdominal pain, changes in his urine or bowel movements. Patient was admitted here last year with similar symptoms and community- acquired pneumonia. In the emergency department patient was initiated on BiPAP 16/6 and his oxygen saturation has improved to 97%, still seems to be in mild respiratory distress and unable to speak in full sentences. Chest x-ray consistent with bilateral pneumonia. BNP was 104. Past Medical History Cardiac Medical History: Reports: Hypertension Pulmonary Medical History: Reports: Bronchitis, Chronic Obstructive Pulmonary Disease (COPD), Pneumonia Endocrine Medical History: Reports: Diabetes Mellitus Type 2 Musculoskeltal Medical History: Reports: Arthritis Skin Medical History: Denies: Psoriasis Psychiatric Medical History: Reports: Depression Traumatic Medical History: Denies: Traumatic Brain Injury Hematology: Denies: Sickle Cell Disease, Bleeding Tendencies Past Surgical History Past Surgical History: Reports: Orthopedic Surgery - Back surgery Social History Smoking Status: Current Every Day Smoker - Half pack per day Frequency of Alcohol Use: None Hx Recreational Drug Use: No Drugs: None Hx Prescription Drug Abuse: No Family History Family History: Reviewed & Not Pertinent Family History: Mother with history of diabetes mellitus. Father at age 62 with coronary artery disease. Parental Family History Reviewed: Yes Children Family History Reviewed: Yes Sibling(s) Family History Reviewed.: Yes Medication/Allergy Home Medications: Albuterol Sulfate [Ventolin HFA MDI 18 GM] 2 puff IN Q6HP PRN 10/17/17 Baclofen [Baclofen 10 mg Tablet] 20 mg PO Q8 10/17/17 Gabapentin [Neurontin 300 mg Capsule] 600 mg PO Q8 10/17/17 Lisinopril/Hydrochlorothiazide [Lisinopril-Hctz 20-25 mg Tab] 1 tab PO DAILY 09/23 Methadone HCl [Dolophine 10 mg Tablet] 15 mg PO Q8 10/17/17 Metoprolol Tartrate [Lopressor 50 mg Tablet] 50 mg PO BIDBS 10/17/17 Oxycodone HCl [Oxycontin Sr 10 mg Tablet] 10 mg PO Q6HP PRN 10/17/17 Sitagliptin Phos/Metformin HCl [Janumet 50-1,000 mg Tablet] 1 tab PO BID Insulin Glargine,Hum.rec.anlog [Basaglar Moiseikpen U-100] 40 unit SQ QHS 10/09/18 Allergies/Adverse Reactions: No Known Allergies Allergy (Verified 10/09/18 17:56) Review of Systems Review of Systems: As outlined in the HPI, all others negative Physical Exam Vital Signs: Temp Pulse Resp BP Pulse Ox 99.4 F 110 H 21 H 122/74 94 10/09/18 17:15 10/09/18 17:15 10/09/18 20:17 10/09/18 19:01 10/09/18 20:17 Additional comments: General appearance: Well-developed, morbid obese, alert and cooperative, and appears to be in acute distress secondary to shortness of breath. Wearing BiPAP Head: Normocephalic Eyes: PEERL, EOMI, vision is grossly intact. Ears: External auditory canal and tympanic membranes clear, hearing grossly intact. Nose: No nasal discharge. Throat: Oral cavity and pharynx by. No inflammation, swelling, exudate or lesions. Neck: Neck supple, nontender without lymphadenopathy, masses or thyromegaly. Cardiac: Normal S1 and S2. No S3, S4 or murmurs. Rhythm is regular and tachycardic. There is no cyanosis or pallor. Extremities are warm and well perfused. Capillary refill is less than 2 seconds. No carotid bruits. Lungs: Severe bilateral decreased breath sounds with distant sounds, expiratory wheezing, I did not appreciate rhonchi or crackles. Not using accessory muscles. Unable to speak in full sentences. Abdomen: Positive bowel sounds. Soft. Nondistended, nontender. No guarding or rebound. No masses. Difficult to appreciate hepatosplenomegaly secondary to body habitus. Extremities: No significant deformity or joint abnormality. No edema. Peripheral pulses intact. No varicosities. Neurological: Cranial nerves II through XII grossly intact. Strength and sensation symmetric and intact throughout. Reflexes 2+ throughout. Skin: Skin normal color, texture and turgor with no lesions or eruptions, warm and dry. Psychiatric: The mental examination revealed the patient was oriented to person , place, and time. The patient was able to demonstrate good judgment on recent , without hallucinations, abnormal affect or abnormal behaviors. Results Laboratory Results: 10/09/18 10/09/18 10/09/18 17:19 17:19 17:19 WBC 12.1 H RBC 3.72 L Hgb 13.0 L Hct 36.7 L MCV 99 H MCH 35.0 H MCHC 35.4 RDW 17.3 H Plt Count 252 Seg Neutrophils % 79.2 H Lymphocytes % 15.0 Monocytes % 3.5 Eosinophils % 1.3 Basophils % 1.0 Absolute Neutrophils 9.6 H Absolute Lymphocytes 1.8 Absolute Monocytes 0.4 Absolute Eosinophils 0.2 Absolute Basophils 0.1 PT 16.0 H INR 1.21 VBG pH VBG pCO2 VBG HCO3 VBG Base Excess Sodium 141.4 Potassium 4.4 Chloride 105 Carbon Dioxide 19 L Anion Gap 17 BUN 34 H Creatinine 0.97 Est GFR ( Amer) > 60 Est GFR (Non-Af Amer) > 60 Glucose 127 H POC Glucose Lactic Acid Calcium 9.3 Total Bilirubin 0.8 Direct Bilirubin 0.7 H AST 53 ALT 14 L Alkaline Phosphatase 110 Troponin I NT-Pro-B Natriuret Pep Total Protein 7.5 Albumin 3.8 Urine Color Urine Appearance Urine pH Ur Specific Geary Urine Protein Urine Glucose (UA) Urine Ketones Urine Blood Urine Nitrite Urine Bilirubin Urine Urobilinogen Ur Leukocyte Esterase Urine WBC (Auto) Urine RBC (Auto) Squamous Epi Cells Auto Urine Mucus (Auto) Urine Ascorbic Acid Influenza A (Rapid) Influenza B (Rapid) 10/09/18 10/09/18 10/09/18 17:19 17:19 17:19 WBC RBC Hgb Hct MCV MCH MCHC RDW Plt Count Seg Neutrophils % Lymphocytes % Monocytes % Eosinophils % Basophils % Absolute Neutrophils Absolute Lymphocytes Absolute Monocytes Absolute Eosinophils Absolute Basophils PT INR VBG pH 7.40 VBG pCO2 31.2 L VBG HCO3 18.9 L VBG Base Excess -4.3 Sodium Potassium Chloride Carbon Dioxide Anion Gap BUN Creatinine Est GFR ( Amer) Est GFR (Non-Af Amer) Glucose POC Glucose Lactic Acid 1.6 Calcium Total Bilirubin Direct Bilirubin AST ALT Alkaline Phosphatase Troponin I < 0.012 NT-Pro-B Natriuret Pep 104 Total Protein Albumin Urine Color Urine Appearance Urine pH Ur Specific Geary Urine Protein Urine Glucose (UA) Urine Ketones Urine Blood Urine Nitrite Urine Bilirubin Urine Urobilinogen Ur Leukocyte Esterase Urine WBC (Auto) Urine RBC (Auto) Squamous Epi Cells Auto Urine Mucus (Auto) Urine Ascorbic Acid Influenza A (Rapid) Influenza B (Rapid) 10/09/18 10/09/18 10/09/18 17:26 18:40 19:22 WBC RBC Hgb Hct MCV MCH MCHC RDW Plt Count Seg Neutrophils % Lymphocytes % Monocytes % Eosinophils % Basophils % Absolute Neutrophils Absolute Lymphocytes Absolute Monocytes Absolute Eosinophils Absolute Basophils PT INR VBG pH VBG pCO2 VBG HCO3 VBG Base Excess Sodium Potassium Chloride Carbon Dioxide Anion Gap BUN Creatinine Est GFR ( Amer) Est GFR (Non-Af Amer) Glucose POC Glucose 139 H Lactic Acid Calcium Total Bilirubin Direct Bilirubin AST ALT Alkaline Phosphatase Troponin I NT-Pro-B Natriuret Pep Total Protein Albumin Urine Color ASHLEY Urine Appearance CLEAR Urine pH 5.0 Ur Specific Geary 1.021 Urine Protein NEGATIVE Urine Glucose (UA) NEGATIVE Urine Ketones NEGATIVE Urine Blood NEGATIVE Urine Nitrite NEGATIVE Urine Bilirubin SMALL H Urine Urobilinogen 4.0 H Ur Leukocyte Esterase NEGATIVE Urine WBC (Auto) 1 Urine RBC (Auto) 0 Squamous Epi Cells Auto 1 Urine Mucus (Auto) RARE Urine Ascorbic Acid NEGATIVE Influenza A (Rapid) NEGATIVE Influenza B (Rapid) NEGATIVE EKG Comments: Sinus tachycardia 107 bpm, RBBB. Impressions: Chest X-Ray 10/09/18 17:23 IMPRESSION: Bilateral pneumonitis. Assessment & Plan - Diagnosis (1) Acute respiratory failure with hypoxia Is this a current diagnosis for this admission?: Yes Plan: Patient with progressive respiratory symptoms, at home is saturating 74% on room air, now doing better on BiPAP saturating 97% but he still seems to be in mild respiratory distress. I will defer the patient to IMCU and will continue BiPAP overnight. IV Solu-Medrol every 8 hours. Nebulizer treatments every 3 hours with DuoNeb and as needed with Xopenex. IV Rocephin and IV azithromycin for community-acquired pneumonia chest x-ray shows bilateral infiltrates. Incentive spirometry. Close respiratory monitoring. Influenza a and B rapid test negative. I am requesting an ABG now and one in the morning. (2) Bilateral pneumonia Qualifiers: Is this a current diagnosis for this admission?: Yes Plan: Assessment and plan as above (3) COPD exacerbation Is this a current diagnosis for this admission?: Yes Plan: Patient has bilateral pneumonia but probably has in addition COPD exacerbation. As above. Resume home bronchodilators. (4) Diabetes mellitus type 2 in obese Is this a current diagnosis for this admission?: Yes Plan: Accu-Cheks every 6 hours we will keep the patient n.p.o. overnight if of BiPAP in the morning and half diet. Insulin lispro sliding scale and hypoglycemia protocol. Resume home diabetic medication. (5) Chronic back pain Is this a current diagnosis for this admission?: Yes Plan: Patient is chronically on opioids, will resume those medications. (6) Hypertension Qualifiers: Hypertension type: essential hypertension Qualified Code(s): I10 - Essential (primary) hypertension Is this a current diagnosis for this admission?: Yes Plan: In the emergency department with pressure 122/74, will resume home antihypertensive medications. (7) Tobacco abuse Is this a current diagnosis for this admission?: Yes Plan: Active smoker, will place nicotine patch 14 mg a day (8) DVT prophylaxis Is this a current diagnosis for this admission?: Yes Plan: Lovenox - Time Time Spent: 50 to 70 Minutes - Inpatient Certification Based on my medical assessment, after consideration of the patient's comorbidities, presenting symptoms, or acuity I expect that the services needed warrant INPATIENT care.: Yes I certify that my determination is in accordance with my understanding of Medicare's requirements for reasonable and necessary INPATIENT services [42 CFR 412.3e].: Yes Medical Necessity: Risk of Complication if Not Cared For in Hospital - Acute respiratory failure with respiratory arrest. - Plan Summary Plan Summary: Case discussed with patient, agree with plan.
[2018-10-09] MEDS ORDERED: (PENDING PHARMACY ID) (Sitagliptin Phos/Metformin Hcl [Janumet 50-1,000 Mg Tablet] 1 TAB) PO SCH (21:00)
[2018-10-09 21:29] LABS: ARTERIAL BLOOD BASE EXCESS -3.7 mmol/L; ARTERIAL BLOOD H2CO3 1.01 mmol/L (1.05-1.35); ARTERIAL BLOOD HCO3 20.1 mmol/L (20-24); ARTERIAL BLOOD O2 SATURATION 96.2 % (94-98); ARTERIAL BLOOD PCO2 33.6 mmHg (35-45); ARTERIAL BLOOD PH 7.39 (7.35-7.45); ARTERIAL BLOOD PO2 82.6 mmHg (80-100); ARTERIAL BLOOD TOTAL CO2 21.1 mmol/L (23-27)
[2018-10-09 21:30] LABS: ARTERIAL BLOOD FIO2 60%
[2018-10-09] MEDS: METHADONE HCL 10 MG TABLET PO SCH (22:06)
[2018-10-09] MEDS: GABAPENTIN 300 MG CAPSULE PO SCH (22:08)
[2018-10-09] MEDS: BACLOFEN 10 MG TABLET PO SCH (22:09)
[2018-10-09] MEDS: METFORMIN HCL 500 MG TABLET PO SCH (22:09)
[2018-10-09] MEDS: SITAGLIPTIN PHOSPHATE 50 MG TABLET PO SCH (22:10)
[2018-10-09] MEDS: METHYLPREDNISOLONE INJ 125 MG/2 ML SDV IV SCH (22:10)
[2018-10-09] MEDS: INSULIN GLARGINE,HUM.REC.ANLOG 300 UNIT/3 ML INSULN.PEN SUBCUT SCH (22:23)
[2018-10-09] MEDS: METOPROLOL TARTRATE 50 MG TABLET PO SCH (22:39)
[2018-10-10] MEDS: IPRATROPIUM/ALBUTEROL 0.5-2.5 MG/3 ML AMPUL NEB SCH ×9 (00:11→22:37)
[2018-10-10 05:33] LABS: ABSOLUTE LYMPHOCYTES (AUTO) 0.6 10^3/uL (0.5-4.7); ABSOLUTE MONOCYTES (AUTO) 0.1 10^3/uL (0.1-1.4); ABSOLUTE NEUT (AUTO) 5.8 10^3/uL (1.7-8.2); BASOPHILS % (AUTO) 0.4 % (0-2); EOSINOPHILS % (AUTO) 0.2 % (0-6); HEMATOCRIT 33.6 % (37.9-51.0); HEMOGLOBIN 11.9 g/dL (13.5-17.0); LYMPHOCYTES % (AUTO) 8.7 % (13-45); MEAN CORPUSCULAR HEMOGLOBIN 35.3 pg (27.0-33.4); MEAN CORPUSCULAR HGB CONC 35.5 g/dL (32.0-36.0); MEAN CORPUSCULAR VOLUME 100 fl (80-97); MONOCYTES % (AUTO) 1.3 % (3-13); PLATELET COUNT 172 10^3/uL (150-450); RED BLOOD COUNT 3.37 10^6/uL (4.35-5.55); RED CELL DISTRIBUTION WIDTH 16.9 % (11.5-14.0); SEGMENTED NEUTROPHILS % (AUTO) 89.4 % (42-78); TOTAL CELLS COUNTED % (AUTO) 100 %; WHITE BLOOD COUNT 6.4 10^3/uL (4.0-10.5)
[2018-10-10 05:57] LABS: ANION GAP 16 (5-19); BLOOD UREA NITROGEN 35 mg/dL (7-20); CALCIUM 8.8 mg/dL (8.4-10.2); CARBON DIOXIDE 17 mmol/L (22-30); CHLORIDE 109 mmol/L (98-107); CREATINE KINASE 460 U/L (55-170); GLUCOSE 178 mg/dL (75-110); PHOSPHORUS 5.3 mg/dL (2.5-4.5); POTASSIUM 4.6 mmol/L (3.6-5.0); SODIUM 142.1 mmol/L (137-145)
[2018-10-10] MEDS: GABAPENTIN 300 MG CAPSULE PO SCH ×3 (06:09→22:44)
[2018-10-10] MEDS: METHADONE HCL 10 MG TABLET PO SCH ×3 (06:10→22:45)
[2018-10-10] MEDS: BACLOFEN 10 MG TABLET PO SCH ×3 (06:10→22:44)
[2018-10-10] MEDS: METHYLPREDNISOLONE INJ 125 MG/2 ML SDV IV SCH ×3 (06:11→22:46)
[2018-10-10] MEDS: METOPROLOL TARTRATE 50 MG TABLET PO SCH ×2 (08:15→17:38)
[2018-10-10] MEDS: INSULIN LISPRO 100 UNIT/ML 3 ML VIAL SUBCUT PRN ×3 (08:22→17:24)
[2018-10-10] MEDS ORDERED: (PENDING PHARMACY ID) (Lisinopril/Hydrochlorothiazide [Lisinopril-Hctz 20-25 Mg Tab] 1 TAB PO SCH (10:00)
[2018-10-10] MEDS ORDERED: CEFTRIAXONE 1 GM/D5W RTU 1 GM/50 ML RTUPB IV SCH (10:00)
[2018-10-10] MEDS: METFORMIN HCL 500 MG TABLET PO SCH ×2 (10:01→17:35)
[2018-10-10] MEDS: LISINOPRIL 10 MG TABLET PO SCH (10:02)
[2018-10-10] MEDS: HYDROCHLOROTHIAZIDE 25 MG TABLET PO SCH (10:02)
[2018-10-10] MEDS: SITAGLIPTIN PHOSPHATE 50 MG TABLET PO SCH ×2 (10:05→17:34)
[2018-10-10] MEDS: ENOXAPARIN SODIUM INJ 40 MG/0.4 ML DISP.SYRIN SUBCUT SCH (10:06)
--- NOTE | 2018-10-10 15:38 | PDOC PROGRESS REPORT ---
Subjective Progress Note for:: 10/10/18 Subjective:: The patient is resting on BiPAP. He does feel slightly better since his admission. He still has a productive cough. Reason For Visit: ACUTE HYPOXIC RESPIRATORY FAILURE BILATERAL Physical Exam Vital Signs: Temp Pulse Resp BP Pulse Ox 97.2 F 74 23 H 124/65 96 10/10/18 07:23 10/10/18 14:10 10/10/18 14:10 10/10/18 07:23 10/10/18 14:10 Intake & Output 10/09/18 10/10/18 10/11/18 06:59 06:59 06:59 Intake Total 1000 912 Output Total 425 1200 Balance 575 -288 Weight 162.5 kg 162.5 kg General appearance: PRESENT: no acute distress, disheveled, morbidly obese - BMI 44.8, well-developed, other - Extremely unkempt. He does not look like he has washed in days. Head exam: PRESENT: atraumatic, normocephalic Respiratory exam: PRESENT: prolonged expiratory phas, symmetrical. ABSENT: chest wall tenderness, crackles, rhonchi, stridor, wheezes Cardiovascular exam: PRESENT: RRR, +S1, +S2 GI/Abdominal exam: PRESENT: distended - Protuberant abdomen, normal bowel sounds , soft. ABSENT: guarding, tenderness Extremities exam: ABSENT: pedal edema Musculoskeletal exam: PRESENT: normal inspection Neurological exam: PRESENT: alert, awake, oriented to person, oriented to place , oriented to situation Psychiatric exam: PRESENT: appropriate affect, normal mood Skin exam: PRESENT: other - As above. Very poor hygiene. Results Laboratory Results: 10/10/18 05:20 10/10/18 05:20 10/09/18 10/10/18 10/10/18 21:18 05:20 05:20 WBC 6.4 RBC 3.37 L Hgb 11.9 L Hct 33.6 L MCV 100 H MCH 35.3 H MCHC 35.5 RDW 16.9 H Plt Count 172 Seg Neutrophils % 89.4 H Lymphocytes % 8.7 L Monocytes % 1.3 L Eosinophils % 0.2 Basophils % 0.4 Absolute Neutrophils 5.8 Absolute Lymphocytes 0.6 Absolute Monocytes 0.1 Absolute Eosinophils 0.0 Absolute Basophils 0.0 Carbonic Acid 1.01 L HCO3/H2CO3 Ratio 19:1 ABG pH 7.39 ABG pCO2 33.6 L ABG pO2 82.6 ABG HCO3 20.1 ABG O2 Saturation 96.2 ABG Base Excess -3.7 FiO2 60% Sodium 142.1 Potassium 4.6 Chloride 109 H Carbon Dioxide 17 L Anion Gap 16 BUN 35 H Creatinine 0.83 Est GFR ( Amer) > 60 Est GFR (Non-Af Amer) > 60 Glucose 178 H Calcium 8.8 Phosphorus 5.3 H Magnesium 2.3 10/10/18 06:30 WBC RBC Hgb Hct MCV MCH MCHC RDW Plt Count Seg Neutrophils % Lymphocytes % Monocytes % Eosinophils % Basophils % Absolute Neutrophils Absolute Lymphocytes Absolute Monocytes Absolute Eosinophils Absolute Basophils Carbonic Acid Cancelled HCO3/H2CO3 Ratio Cancelled ABG pH Cancelled ABG pCO2 Cancelled ABG pO2 Cancelled ABG HCO3 Cancelled ABG O2 Saturation Cancelled ABG Base Excess Cancelled FiO2 Cancelled Sodium Potassium Chloride Carbon Dioxide Anion Gap BUN Creatinine Est GFR ( Amer) Est GFR (Non-Af Amer) Glucose Calcium Phosphorus Magnesium 10/09/18 10/10/18 10/10/18 23:18 05:20 05:20 Creatine Kinase 460 H Troponin I < 0.012 < 0.012 10/10/18 11:05 Creatine Kinase Troponin I < 0.012 Impressions: Chest X-Ray 10/09/18 17:23 IMPRESSION: Bilateral pneumonitis. Assessment & Plan - Diagnosis (1) Acute respiratory failure with hypoxia Is this a current diagnosis for this admission?: Yes Plan: Patient requires BiPAP with oxygen. Will also receive intravenous steroids and nebulizer treatments. (2) Bilateral pneumonia Qualifiers: Pneumonia type: due to unspecified organism Lung location: unspecified part of lung Qualified Code(s): J18.9 - Pneumonia, unspecified organism Is this a current diagnosis for this admission?: Yes Plan: Sputum culture has been submitted. Patient is currently on Rocephin and azithromycin for community acquired pneumonia. His white blood cell count has improved. (3) Diabetes mellitus type 2 in obese Is this a current diagnosis for this admission?: Yes Plan: He will continue his Januvia, Lantus, metformin and sliding scale. With the intravenous steroids we will see a spike in his glucose and we will treat accordingly. (4) COPD exacerbation Is this a current diagnosis for this admission?: Yes Plan: He is currently on an aggressive inhaler regimen with IV steroids and supplemental oxygen via BiPAP. (5) Morbid obesity with BMI of 40.0-44.9, adult Is this a current diagnosis for this admission?: Yes Plan: There is likely a component of obesity hypoventilation syndrome as well. We will try and encourage weight loss. He will already be on a consistent carbohydrate diet. (6) Chronic back pain Is this a current diagnosis for this admission?: Yes Plan: Continue current analgesic regimen. He takes methadone and OxyContin. He is also on baclofen. (7) Hypertension Qualifiers: Hypertension type: essential hypertension Qualified Code(s): I10 - Essential (primary) hypertension Is this a current diagnosis for this admission?: Yes Plan: Continue current antihypertensive regimen. He is on lisinopril, hydrochlorothiazide and metoprolol. - Time Time Spent with patient: 15-24 minutes Smoking Cessation Education: 3 to 10 minutes Medications reviewed and adjusted accordingly: Yes
[2018-10-10] MEDS: AZITHROMYCIN 500 MG in DEXTROSE 5%-WATER 250 ML IV SCH (17:34)
[2018-10-10] MEDS: CEFTRIAXONE SODIUM 1,000 MG in DEXTROSE 5%-WATER 50 ML IV SCH (22:46)
[2018-10-10] MEDS: INSULIN GLARGINE,HUM.REC.ANLOG 300 UNIT/3 ML INSULN.PEN SUBCUT SCH (22:47)
[2018-10-11] MEDS: IPRATROPIUM/ALBUTEROL 0.5-2.5 MG/3 ML AMPUL NEB SCH ×8 (02:14→23:19)
[2018-10-11 05:02] LABS: ABSOLUTE LYMPHOCYTES (AUTO) 0.7 10^3/uL (0.5-4.7); ABSOLUTE MONOCYTES (AUTO) 0.2 10^3/uL (0.1-1.4); ABSOLUTE NEUT (AUTO) 6.5 10^3/uL (1.7-8.2); BASOPHILS % (AUTO) 0.1 % (0-2); EOSINOPHILS % (AUTO) 0.1 % (0-6); HEMATOCRIT 31.7 % (37.9-51.0); HEMOGLOBIN 11.2 g/dL (13.5-17.0); LYMPHOCYTES % (AUTO) 9.3 % (13-45); MEAN CORPUSCULAR HEMOGLOBIN 35.1 pg (27.0-33.4); MEAN CORPUSCULAR HGB CONC 35.3 g/dL (32.0-36.0); MEAN CORPUSCULAR VOLUME 100 fl (80-97); MONOCYTES % (AUTO) 2.8 % (3-13); PLATELET COUNT 201 10^3/uL (150-450); RED BLOOD COUNT 3.19 10^6/uL (4.35-5.55); RED CELL DISTRIBUTION WIDTH 17.1 % (11.5-14.0); SEGMENTED NEUTROPHILS % (AUTO) 87.7 % (42-78); TOTAL CELLS COUNTED % (AUTO) 100 %; WHITE BLOOD COUNT 7.5 10^3/uL (4.0-10.5)
[2018-10-11 05:26] LABS: ALBUMIN 3.3 g/dL (3.5-5.0); ANION GAP 11 (5-19); BLOOD UREA NITROGEN 35 mg/dL (7-20); CALCIUM 9.1 mg/dL (8.4-10.2); CARBON DIOXIDE 23 mmol/L (22-30); CHLORIDE 106 mmol/L (98-107); GLUCOSE 163 mg/dL (75-110); PHOSPHORUS 3.8 mg/dL (2.5-4.5); POTASSIUM 4.6 mmol/L (3.6-5.0); SODIUM 139.9 mmol/L (137-145)
[2018-10-11] MEDS: METHADONE HCL 10 MG TABLET PO SCH ×3 (05:49→21:53)
[2018-10-11] MEDS: GABAPENTIN 300 MG CAPSULE PO SCH ×3 (05:49→21:53)
[2018-10-11] MEDS: METHYLPREDNISOLONE INJ 125 MG/2 ML SDV IV SCH ×3 (05:54→21:53)
[2018-10-11] MEDS: BACLOFEN 10 MG TABLET PO SCH ×3 (05:54→21:54)
[2018-10-11 06:20] LABS: ERYTHROCYTE SEDIMENTATION RATE > 120 mm/hr (0-15)
--- NOTE | 2018-10-11 10:24 | PDOC PROGRESS REPORT ---
Subjective Progress Note for:: 10/11/18 Subjective:: The patient is resting on BiPAP. He does feel slightly better since his admission. He still has a productive cough. 10/11/2018-the patient is on nasal cannula just finishing breakfast. He reports feeling better today than yesterday. Reason For Visit: ACUTE HYPOXIC RESPIRATORY FAILURE BILATERAL Physical Exam Vital Signs: Temp Pulse Resp BP Pulse Ox 97.6 F 75 18 115/51 L 96 10/11/18 07:36 10/11/18 08:15 10/11/18 08:15 10/11/18 07:36 10/11/18 08:15 Intake & Output 10/10/18 10/11/18 10/12/18 06:59 06:59 06:59 Intake Total 1000 2331 Output Total 425 3550 Balance 575 -1219 Weight 162.5 kg 162 kg General appearance: PRESENT: cooperative, mild distress, morbidly obese, well- developed Mouth exam: PRESENT: moist, tongue midline Respiratory exam: PRESENT: rhonchi - Bilateral bases, symmetrical. ABSENT: accessory muscle use, rales, wheezes Cardiovascular exam: PRESENT: RRR, +S1, +S2. ABSENT: systolic murmur GI/Abdominal exam: PRESENT: distended - Protuberant abdomen, normal bowel sounds , soft. ABSENT: guarding, tenderness Extremities exam: ABSENT: pedal edema Neurological exam: PRESENT: alert, awake, oriented to person, oriented to place , oriented to situation, CN II-XII grossly intact Psychiatric exam: PRESENT: appropriate affect, normal mood. ABSENT: agitated, anxious Focused psych exam: ABSENT: restlessness Results Laboratory Results: 10/11/18 04:20 10/11/18 04:20 10/11/18 10/11/18 04:20 04:20 WBC 7.5 RBC 3.19 L Hgb 11.2 L Hct 31.7 L MCV 100 H MCH 35.1 H MCHC 35.3 RDW 17.1 H Plt Count 201 Seg Neutrophils % 87.7 H Lymphocytes % 9.3 L Monocytes % 2.8 L Eosinophils % 0.1 Basophils % 0.1 Absolute Neutrophils 6.5 Absolute Lymphocytes 0.7 Absolute Monocytes 0.2 Absolute Eosinophils 0.0 Absolute Basophils 0.0 Sodium 139.9 Potassium 4.6 Chloride 106 Carbon Dioxide 23 Anion Gap 11 BUN 35 H Creatinine 0.78 Est GFR ( Amer) > 60 Est GFR (Non-Af Amer) > 60 Glucose 163 H Calcium 9.1 Phosphorus 3.8 Albumin 3.3 L 10/09/18 10/10/18 10/10/18 23:18 05:20 05:20 Creatine Kinase 460 H Troponin I < 0.012 < 0.012 10/10/18 11:05 Creatine Kinase Troponin I < 0.012 Impressions: Chest X-Ray 10/09/18 17:23 IMPRESSION: Bilateral pneumonitis. Assessment & Plan - Diagnosis (1) Acute respiratory failure with hypoxia Is this a current diagnosis for this admission?: Yes (2) Bilateral pneumonia Qualifiers: Pneumonia type: due to unspecified organism Lung location: unspecified part of lung Qualified Code(s): J18.9 - Pneumonia, unspecified organism Is this a current diagnosis for this admission?: Yes Plan: Sputum culture has been submitted. Patient is currently on Rocephin and azithromycin for community acquired pneumonia. His white blood cell count has improved. 10/11/2018-the patient coughed up more sputum. It is brownish in color. Gram stain reveals gram-positive cocci in pairs (possible strep) as well as other abdiaziz. Await final identification and sensitivities before changing antibiotic therapy. (3) Diabetes mellitus type 2 in obese Is this a current diagnosis for this admission?: Yes Plan: He will continue his Januvia, Lantus, metformin and sliding scale. With the intravenous steroids we will see a spike in his glucose and we will treat accordingly. 10/11/2018-improving sugars. Most are below 200 today. (4) COPD exacerbation Is this a current diagnosis for this admission?: Yes Plan: He is currently on an aggressive inhaler regimen with IV steroids and supplemental oxygen via BiPAP. 10/11/2018-the patient told me that he is not on oxygen at home and takes no inhalers at home. I will likely order PFTs once he is more stable. (5) Morbid obesity with BMI of 40.0-44.9, adult Is this a current diagnosis for this admission?: Yes Plan: There is likely a component of obesity hypoventilation syndrome as well. We will try and encourage weight loss. He will already be on a consistent carbohydrate diet. (6) Chronic back pain Is this a current diagnosis for this admission?: Yes Plan: Continue current analgesic regimen. He takes methadone and OxyContin. He is also on baclofen. 10/11/2018-continue current regimen. Back pain appears to be controlled. (7) Hypertension Qualifiers: Hypertension type: essential hypertension Qualified Code(s): I10 - Essential (primary) hypertension Is this a current diagnosis for this admission?: Yes Plan: Continue current antihypertensive regimen. He is on lisinopril, hydrochlorothiazide and metoprolol. 10/11/2018-no changes in his regimen at this time. - Time Time Spent with patient: 15-24 minutes Medications reviewed and adjusted accordingly: Yes
[2018-10-11] MEDS: HYDROCHLOROTHIAZIDE 25 MG TABLET PO SCH (10:43)
[2018-10-11] MEDS: LISINOPRIL 10 MG TABLET PO SCH (10:44)
[2018-10-11] MEDS: SITAGLIPTIN PHOSPHATE 50 MG TABLET PO SCH ×2 (10:44→17:51)
[2018-10-11] MEDS: METFORMIN HCL 500 MG TABLET PO SCH ×2 (10:45→17:51)
[2018-10-11] MEDS: ENOXAPARIN SODIUM INJ 40 MG/0.4 ML DISP.SYRIN SUBCUT SCH (10:45)
[2018-10-11] MEDS: METOPROLOL TARTRATE 50 MG TABLET PO SCH ×2 (10:46→17:51)
[2018-10-11] MEDS: INSULIN LISPRO 100 UNIT/ML 3 ML VIAL SUBCUT PRN (12:22)
[2018-10-11] MEDS: AZITHROMYCIN 500 MG in DEXTROSE 5%-WATER 250 ML IV SCH (17:51)
[2018-10-11] MEDS: INSULIN GLARGINE,HUM.REC.ANLOG 300 UNIT/3 ML INSULN.PEN SUBCUT SCH (21:53)
[2018-10-11] MEDS: CEFTRIAXONE SODIUM 1,000 MG in DEXTROSE 5%-WATER 50 ML IV SCH (21:54)
[2018-10-12] MEDS: IPRATROPIUM/ALBUTEROL 0.5-2.5 MG/3 ML AMPUL NEB SCH ×5 (02:42→14:04)
[2018-10-12] MEDS: METHYLPREDNISOLONE INJ 125 MG/2 ML SDV IV SCH ×2 (05:38→13:28)
[2018-10-12] MEDS: METHADONE HCL 10 MG TABLET PO SCH ×2 (05:38→13:26)
[2018-10-12] MEDS: BACLOFEN 10 MG TABLET PO SCH ×2 (05:38→13:26)
[2018-10-12] MEDS: GABAPENTIN 300 MG CAPSULE PO SCH ×2 (05:38→13:26)
[2018-10-12] MEDS: LISINOPRIL 10 MG TABLET PO SCH (09:16)
[2018-10-12] MEDS: METFORMIN HCL 500 MG TABLET PO SCH (09:16)
[2018-10-12] MEDS: ENOXAPARIN SODIUM INJ 40 MG/0.4 ML DISP.SYRIN SUBCUT SCH (09:16)
[2018-10-12] MEDS: METOPROLOL TARTRATE 50 MG TABLET PO SCH (09:16)
[2018-10-12] MEDS: HYDROCHLOROTHIAZIDE 25 MG TABLET PO SCH (09:16)
[2018-10-12] MEDS: SITAGLIPTIN PHOSPHATE 50 MG TABLET PO SCH (09:17)
[2018-10-12 16:37] VITALS: BP 122/66
--- NOTE | 2018-10-12 18:05 | PDOC DISCHARGE SUMMARY ---
General - Admit/Disc Date/PCP Admission Date/Primary Care Provider: 10/09/18 20:[address] gallagher Discharge Date: 10/12/18 - Discharge Diagnosis (1) Acute respiratory failure with hypoxia Is this a current diagnosis for this admission?: Yes Summary: The patient in fact has been weaned off of his oxygen. The antibiotic therapy and nebulizer treatments as well as steroids have been very helpful. He can return home on room air. The failure was due to the bilateral pneumonia. (2) Bilateral pneumonia Is this a current diagnosis for this admission?: Yes Summary: Sputum culture showed mostly normal abdiaziz with a small amount of a gram- negative bacillus. It is most likely a bacterial pneumonia but specific organism has yet to be identified. The patient will be discharged on antibiotic therapy. He has already received several doses of azithromycin and so I will continue his cephalosporin with Vantin 200 mg twice daily for an additional 7 days. (3) Diabetes mellitus type 2 in obese Is this a current diagnosis for this admission?: Yes Summary: During this admission the diabetic regimen did not change. He will discharge on his Januvia with metformin as well as Lantus. (4) COPD exacerbation Is this a current diagnosis for this admission?: Yes Summary: With the combination of aggressive inhalers, IV steroids, BiPAP and antibiotics the patient was able to wean off of the BiPAP and in fact wean off of oxygen. We will continue his previous regimen of inhaler therapy. He was given a Medrol Dosepak to complete a short course of methylprednisolone. (5) Morbid obesity with BMI of 40.0-44.9, adult Is this a current diagnosis for this admission?: Yes Summary: This is a chronic problem. Unfortunately due to his back surgery and chronic pain increased exercise he is not likely. He should consider strict attention to diet. (6) Chronic back pain Is this a current diagnosis for this admission?: Yes Summary: The patient is on methadone, gabapentin and as needed narcotic analgesia. We have not changed his regimen. He will continue the same regimen at home. (7) Hypertension Is this a current diagnosis for this admission?: Yes Summary: Continue current medication regimen. Blood pressures were reasonably controlled. - Additional Information Resuscitation Status: Full Code Discharge Diet: Diabetic Discharge Activity: Activity As Tolerated, Balance Activity w/Rest Prescriptions: Cefpodoxime Proxetil [Vantin 200 mg Tablet] 1 tab PO Q12 #14 tab Ipratropium/Albuterol Sulfate [Duoneb 3 ml Ampul] 3 ml NEB Q4HP PRN #50 vial.neb PRN Reason: Methylprednisolone [Medrol Dosepack (4 mg/Tab) 21 Tab/Dosepak] 21 tab PO DAILY # 1 dspk Home Medications: Albuterol Sulfate [Ventolin HFA MDI 18 GM] 2 puff IN Q6HP PRN 10/17/17 Baclofen [Baclofen 10 mg Tablet] 20 mg PO Q8 10/17/17 Gabapentin [Neurontin 300 mg Capsule] 600 mg PO Q8 10/17/17 Lisinopril/Hydrochlorothiazide [Lisinopril-Hctz 20-25 mg Tab] 1 tab PO DAILY 09/23 Methadone HCl [Dolophine 10 mg Tablet] 15 mg PO Q8 10/17/17 Metoprolol Tartrate [Lopressor 50 mg Tablet] 50 mg PO BIDBS 10/17/17 Oxycodone HCl [Oxycontin Sr 10 mg Tablet] 10 mg PO Q6HP PRN 10/17/17 Sitagliptin Phos/Metformin HCl [Janumet 50-1,000 mg Tablet] 1 tab PO BID Insulin Glargine,Hum.rec.anlog [Basaglar Kwikpen U-100] 40 unit SQ QHS 10/09/18 Cefpodoxime Proxetil [Vantin 200 mg Tablet] 1 tab PO Q12 #14 tab 10/12/18 Ipratropium/Albuterol Sulfate [Duoneb 3 ml Ampul] 3 ml NEB Q4HP PRN #50 vial.neb 10/12/18 Methylprednisolone [Medrol Dosepack (4 mg/Tab) 21 Tab/Dosepak] 21 tab PO DAILY # 1 dspk 10/12/18 Nicotine [Nicoderm 14 mg/24 Hr Transdermal Patch] 1 each TD DAILYP PRN patch.td24 10/12/18 History of Present Illness Patient complains of: Shortness of breath History of Present Illness: ANKIT MERCER is a 38 year old male With medical history remarkable for hypertension, COPD not on home oxygen, diabetes mellitus, smoker half pack per day. Patient tells me that his symptoms started 2 days ago with progressive shortness of breath associated with cough with whitish sputum, bilateral wheezing. 2 days symptoms were so severe that he decided to call EMS, upon EMS arrival his oxygen saturation was 74% on room air, initially was placed on nonrebreather and the pulse oximeter went up to 88%. He reports fever of 104 today, took 3 BC powders prior to come to the ED. Denies chills, nausea, vomiting, chest pain, abdominal pain, changes in his urine or bowel movements. Patient was admitted here last year with similar symptoms and community- acquired pneumonia. In the emergency department patient was initiated on BiPAP 16/ and his oxygen saturation has improved to 97%, still seems to be in mild respiratory distress and unable to speak in full sentences. Chest x-ray consistent with bilateral pneumonia. BNP was 104. Hospital Course Hospital Course: The patient had a benign hospital course without complication. After the initial day and aggressive treatment he began to show improvement. By the second day he felt better. By today he was off of BiPAP and nasal cannula oxygen as well. There were not significant changes in most of his medications from home. He will taper the steroids with a Medrol Dosepak. He will continue another week of outpatient antibiotic therapy. I encouraged him to follow-up with his primary care provider next week. Physical Exam Vital Signs: Temp Pulse Resp BP Pulse Ox 98.2 F 65 22 H 122/66 97 10/12/18 16:30 10/12/18 16:30 10/12/18 16:30 10/12/18 16:30 10/12/18 16:30 Intake & Output 10/11/18 10/12/18 10/13/18 06:59 06:59 06:59 Intake Total 2331 2529 637 Output Total 8070 2275 1180 Balance -1219 254 -543 Weight 162 kg 161.8 kg General appearance: PRESENT: no acute distress, cooperative, morbidly obese, well-developed Head exam: PRESENT: atraumatic, normocephalic Mouth exam: PRESENT: moist, tongue midline Respiratory exam: PRESENT: clear to auscultation dez, symmetrical, unlabored. ABSENT: crackles, prolonged expiratory phas, rales, rhonchi, wheezes Cardiovascular exam: PRESENT: RRR, +S1, +S2. ABSENT: systolic murmur GI/Abdominal exam: PRESENT: distended - Protuberant abdomen, normal bowel sounds , soft. ABSENT: guarding, rebound, tenderness Extremities exam: ABSENT: pedal edema Musculoskeletal exam: PRESENT: other - Large spinal incision scar Neurological exam: PRESENT: alert, awake, oriented to person, oriented to place , oriented to time, oriented to situation, CN II-XII grossly intact Psychiatric exam: PRESENT: appropriate affect, normal mood. ABSENT: agitated, anxious Focused psych exam: ABSENT: restlessness Results Laboratory Results: 10/11/18 04:20 10/11/18 04:20 10/09/18 10/10/18 10/10/18 23:18 05:20 05:20 Creatine Kinase 460 H Troponin I < 0.012 < 0.012 10/10/18 11:05 Creatine Kinase Troponin I < 0.012 Impressions: Chest X-Ray 10/09/18 17:23 IMPRESSION: Bilateral pneumonitis. Qualifiers - * PATIENT BEING DISCHARGED WITH ANY OF THE FOLLOWING DIAGNOSIS: No Plan Discharge Plan: As outlined above Time Spent: Less than 30 Minutes
== END 2018-10-12 17:15 | disposition home or self-care (01) | DRG 189 ==
LOC: ER 17:13 → EH 20:14 → 3N 23:36
PROVIDERS: ADMIT Internal Medicine; ATTEND Internal Medicine
PROC: 3E0234Z Introduction of Serum, Toxoid and Vaccine into Muscle, Percutaneous Approach (ICD-10-PCS; principal; 2018-10-12)
DX: J96.21 Acute and chronic respiratory failure with hypoxia (principal); J18.9 Pneumonia, unspecified organism; J44.1 Chronic obstructive pulmonary disease with (acute) exacerbation; J44.0 Chronic obstructive pulmonary disease with (acute) lower respiratory infection; Z68.41 Body mass index [BMI] 40.0-44.9, adult; E11.8 Type 2 diabetes mellitus with unspecified complications; I10 Essential (primary) hypertension; F41.8 Other specified anxiety disorders; M54.9 Dorsalgia, unspecified; E66.01 Morbid (severe) obesity due to excess calories; F17.210 Nicotine dependence, cigarettes, uncomplicated; Z79.84 Long term (current) use of oral hypoglycemic drugs; Z79.4 Long term (current) use of insulin; Z79.51 Long term (current) use of inhaled steroids; Z79.899 Other long term (current) drug therapy; Z23 Encounter for immunization
CPT/HCPCS: 36415; 36600; 71045; 80048; 80053; 80069; 81001; 82550; 82803; 82962; 83605; 83735; 83880; 84100; 84484; 85025; 85610; 85652; 87040; 87070; 87077; 87086; 87186; 87205; 87804; 90686; 93005; 93010; 94660; 94799; 96365; 99291; J0456; J0696; J1650; J1815; J2930; J3490; J7030; J7060; J7620

== ENCOUNTER 2019-04-24 20:46 | Inpatient (IN) | payer MEDICARE, MEDICAID ==
--- NOTE | 2019-04-24 21:27 | ER Document Report ---
ED Cardiac - General Chief Complaint: Chest Pain Stated Complaint: CHEST PAIN Time Seen by Provider: 04/24/19 21:16 Notes: Patient is a 38-year-old male who presents emerged department with a chief complaint of chest pain. His chest pain started 2 days ago. He states that it is in the left side of his chest and in his left shoulder and back. Patient states that the pain is constant. He also states that he has had some diarrhea starting today. He has not been on any recent antibiotics. He was brought in by ambulance and received 324 of aspirin, Tylenol for a temperature of 102, nitroglycerin 1 spray.He has a past medical history of pneumonia, acute respiratory failure, diabetes, COPD, chronic back pain, and hypertension. He states that his caregiver has not been with him for the past few months. He is currently taking baclofen, gabapentin, Janumet, metoprolol, lisinopril, and methadone. TRAVEL OUTSIDE OF THE [place] IN LAST 30 DAYS: No - Related Data Allergies/Adverse Reactions: No Known Allergies Allergy (Verified 10/09/18 17:56) Past Medical History - Social History Smoking Status: Current Every Day Smoker Family History: Reviewed & Not Pertinent - Past Medical History Cardiac Medical History: Reports: Hx Hypertension Pulmonary Medical History: Reports: Hx Bronchitis, Hx COPD, Hx Pneumonia Endocrine Medical History: Reports: Hx Diabetes Mellitus Type 2 Renal/ Medical History: Denies: Hx Peritoneal Dialysis Musculoskeletal Medical History: Reports Hx Arthritis Skin Medical History: Denies Hx Psoriasis Psychiatric Medical History: Reports: Hx Anxiety, Hx Depression Traumatic Medical History: Denies: Hx Traumatic Brain Injury Past Surgical History: Reports: Hx Orthopedic Surgery - Back surgery - Immunizations Hx Diphtheria, Pertussis, Tetanus Vaccination: Yes Review of Systems - Review of Systems Notes: REVIEW OF SYSTEMS: CONSTITUTIONAL : Denies recent illness. Denies recent unintentional weight loss. Denies fever, chills, or sweats. EENT: Denies eye, ear, throat, or mouth pain, discharge, or symptoms. Denies nasal or sinus congestion. CARDIOVASCULAR: See HPI RESPIRATORY: See HPI GASTROINTESTINAL: Denies nausea, vomiting, and diarrhea. Denies abdominal pain. Denies constipation. GENITOURINARY: Denies difficulty urinating, burning, blood in urine, urgency or frequency. MUSCULOSKELETAL: Denies neck and back pain. Denies joint pain or swelling. SKIN: Denies rash, itchiness, or lesions HEMATOLOGIC : Denies easy bruising or bleeding. LYMPHATIC: Denies swollen, painful, enlarged glands. NEUROLOGICAL: Denies no numbness or tingling denies weakness. Denies headache. Denies altered mental status. Denies alteration in speech. PSYCHIATRIC: Denies stress, anxiety, alteration in sleep patterns, or depression. All other systems reviewed and negative. Physical Exam - Vital signs Vitals: Temp Pulse Resp BP Pulse Ox 98.0 F 122 H 24 H 185/86 H 86 L 04/24/19 20:49 04/24/19 20:49 04/24/19 20:49 04/24/19 20:49 04/24/19 20:49 - Notes Notes: PHYSICAL EXAMINATION: GENERAL: Appears disheveled, foul-smelling, mild distress. HEAD: Normocephalic, atraumatic. EYES: PERRL, conjunctiva normal, all extraocular movements intact, sclera n onicteric ENT: Moist mucous membranes. NECK: Supple, no noticeable swelling, redness, rash. Normal range of motion. LUNGS: Equal breath sounds bilaterally and clear to auscultation. No wheezes rales or rhonchi. CARDIOVASCULAR: S1-S2, regular rate, regular rhythm. Radial pulses 2+, normal. ABDOMEN: Normoactive bowel sounds. Soft, nontender, no guarding, no rebound tenderness, and no masses palpated. EXTREMITIES: Normal strength and range of motion, no pitting or edema. No cyanosis. NEUROLOGICAL: Moves all extremities upon command. Strength 5/5 in all extremities. PSYCH: Normal mood, normal affect. SKIN: Warm, dry. No rash, lesions, ulcerations noted. Normal skin turgor. Course - Re-evaluation Re-evalutation: 04/24/19 At the time of my assessment the patient was hypoxic with an oxygen saturation of 87% on room air. 04/25/19 00:48 Patient is still requiring oxygen he is on 2 L nasal cannula. His chest x-ray and CT show that he has pneumonia. We have ruled out aortic dissection, or any other life-threatening pathology at this time. I will call Dr. Mari in regards to the patient's status. 04/25/19 01:13 I was able to get a hold of Dr. Mari, he said he will call me back. 04/25/19 02:[address] Mari and the patient will be admitted to telemetry. - Vital Signs Vital signs: Temp Pulse Resp BP Pulse Ox 98.0 F 122 H 24 H 129/71 H 97 04/24/19 20:49 04/24/19 20:49 04/25/19 07:01 04/25/19 06:01 04/25/19 07:01 - Laboratory Result Diagrams: 04/25/19 06:29 04/24/19 21:45 Laboratory results interpreted by me: 04/24/19 04/24/19 04/24/19 21:45 21:45 21:45 WBC 13.8 H RBC 4.24 L RDW 15.9 H Absolute Neutrophils 9.9 H VBG pH 7.47 H VBG pCO2 28.1 L Potassium 3.5 L Chloride 110 H Carbon Dioxide 20 L Glucose 136 H AST 12 L ALT 14 L Urine Urobilinogen 04/24/19 22:50 WBC RBC RDW Absolute Neutrophils VBG pH VBG pCO2 Potassium Chloride Carbon Dioxide Glucose AST ALT Urine Urobilinogen 2.0 H Discharge - Discharge Clinical Impression: Pneumonia, Hypoxia, Morbid obesity with BMI of 40.0-44.9, adult Condition: Fair Disposition: ADMITTED INPATIENT Admitting Provider: Kamaljit (Hospitalist) Unit Admitted: Telemetry
[2019-04-24] MEDS ORDERED: MORPHINE SULFATE 10 MG/ML INJ IV ONE (21:45)
--- NOTE | 2019-04-24 22:00 | RADIOLOGY REPORT (SQ) ---
EXAM DESCRIPTION: XR CHEST 1 VIEW COMPLETED DATE/TME: 04/24/2019 20:50 CLINICAL HISTORY: 38 years, Male, chest pain COMPARISON: 10/18/2017. NUMBER OF VIEWS: 2 TECHNIQUE: Two AP portable views of the chest were obtained LIMITATIONS: None. FINDINGS: Unremarkable cardiac and mediastinal silhouette. Heart size is normal. LEFT lower lobe opacity may be secondary to low lung volumes and subsegmental atelectasis versus developing consolidation. Lungs are otherwise clear without focal opacity, pneumothorax or pleural effusions. Thoracic spine stabilization hardware present. The visualized bones are within normal limits. IMPRESSION: LEFT lower lobe opacity may be secondary to low lung volumes and subsegmental atelectasis versus developing consolidation. Please correlate with patient clinical findings and consider follow-up for resolution. copyright 2010 [employer]- All Rights Reserved
[2019-04-24 22:07] LABS: VENOUS BLOOD BASE EXCESS -2.1 mmol/L; VENOUS BLOOD HCO3 20.1 mmol/L (20-32); VENOUS BLOOD PCO2 28.1 mmHg (35-63); VENOUS BLOOD PH 7.47 (7.30-7.42)
[2019-04-24 22:09] LABS: ABSOLUTE BASOPHILS # (AUTO) 0.1 10^3/uL (0.0-0.2); ABSOLUTE EOSINOPHILS # (AUTO) 0.1 10^3/uL (0.0-0.6); ABSOLUTE LYMPHOCYTES (AUTO) 2.9 10^3/uL (0.5-4.7); ABSOLUTE MONOCYTES (AUTO) 0.8 10^3/uL (0.1-1.4); ABSOLUTE NEUT (AUTO) 9.9 10^3/uL (1.7-8.2); BASOPHILS % (AUTO) 0.7 % (0-2); HEMATOCRIT 40.4 % (37.9-51.0); LYMPHOCYTES % (AUTO) 20.8 % (13-45); MEAN CORPUSCULAR HEMOGLOBIN 33.1 pg (27.0-33.4); MEAN CORPUSCULAR HGB CONC 34.7 g/dL (32.0-36.0); MEAN CORPUSCULAR VOLUME 95 fl (80-97); MONOCYTES % (AUTO) 5.6 % (3-13); PLATELET COUNT 191 10^3/uL (150-450); RED BLOOD COUNT 4.24 10^6/uL (4.35-5.55); RED CELL DISTRIBUTION WIDTH 15.9 % (11.5-14.0); SEGMENTED NEUTROPHILS % (AUTO) 71.9 % (42-78); TOTAL CELLS COUNTED % (AUTO) 100 %; WHITE BLOOD COUNT 13.8 10^3/uL (4.0-10.5)
[2019-04-24 22:15] LABS: INTERNATIONAL RATION (INR) 1.07; PROTHROMBIN TIME 14.4 SEC (11.4-15.4)
[2019-04-24 22:27] LABS: ALANINE AMINOTRANSFERASE 14 U/L (21-72); ALBUMIN 3.7 g/dL (3.5-5.0); ALKALINE PHOSPHATASE 75 U/L (38-126); ANION GAP 12 (5-19); ASPARTATE AMINO TRANSFERASE 12 U/L (17-59); BILIRUBIN,DIRECT 0.3 mg/dL (0.0-0.4); BILIRUBIN,TOTAL 0.6 mg/dL (0.2-1.3); BLOOD UREA NITROGEN 13 mg/dL (7-20); CALCIUM 9.2 mg/dL (8.4-10.2); CARBON DIOXIDE 20 mmol/L (22-30); CHLORIDE 110 mmol/L (98-107); GLUCOSE 136 mg/dL (75-110); POTASSIUM 3.5 mmol/L (3.6-5.0); SODIUM 141.9 mmol/L (137-145)
[2019-04-24] MEDS ORDERED: NORMAL SALINE 1000 ML 1,000 ML IV ONE (22:28)
[2019-04-24 23:17] LABS: APPEARANCE,URINE SLIGHTLY-CLOUDY; BILIRUBIN,URINE NEGATIVE (NEGATIVE); COLOR,URINE YELLOW; GLUCOSE, URINE NEGATIVE (NEGATIVE); KETONES,URINE NEGATIVE (NEGATIVE); LEUKOCYTE ESTERASE,URINE NEGATIVE (NEGATIVE); NITRITE,URINE NEGATIVE (NEGATIVE); PROTEIN,URINE NEGATIVE (NEGATIVE); URINE SPECIFIC GRAVITY 1.024
--- NOTE | 2019-04-24 23:38 | RADIOLOGY REPORT (SQ) ---
CLINICAL HISTORY: chest pain; COMPARISON: None. TECHNIQUE: CT CHEST ANGIOGRAPHY WITHOUT THEN WITH IV CONTRAST on 04/24/2019 9:27 PM CDT. MIPS reconstructions were generated. This exam was performed according to our departmental dose-optimization program, which includes automated exposure control, adjustment of the mA and/or kV according to patient size and/or use of iterative reconstruction technique. MIP images were generated. FINDINGS: Thoracic aorta is normal in course and caliber without aneurysm or dissection. Pulmonary arteries are poorly opacified. There are no large central filling defects. The heart is normal in size. There is no pericardial effusion. Intrathoracic lymph nodes are not enlarged. There is no pleural effusion, pleural thickening or pneumothorax. There is mucous plugging in the right lower lobe. There are groundglass opacities in the right upper lobe. There are no acute abnormalities within the limited images of the upper abdomen. Since a thoracic fusion was performed. IMPRESSION: No aortic dissection or aneurysm. No large or central pulmonary embolus. Probable right upper lobe pneumonia with right lower lobe mucus plugging.
[2019-04-25] MEDS ORDERED: CEFTRIAXONE 1 GM/D5W RTU 1 GM/50 ML RTUPB IV ONE (01:30)
[2019-04-25] MEDS ORDERED: LACTULOSE SYRUP 20 GM/30 ML UDCUP PO ONE (02:12)
[2019-04-25] MEDS ORDERED: HYDRALAZINE HCL INJ/PF 20 MG/1 ML SDV IV PRN (02:12)
[2019-04-25] MEDS ORDERED: DEXTROSE 40% GEL 15 GM TUBE PO PRN ×2 (02:14)
[2019-04-25] MEDS ORDERED: GLUCAGON,HUMAN RECOMB 1 MG INJ IM PRN (02:14)
[2019-04-25] MEDS ORDERED: DEXTROSE 50%-WATER 25 GM/50 ML DISP.SYRIN IV PRN ×2 (02:14)
[2019-04-25] MEDS ORDERED: ACETAMINOPHEN 325 MG TABLET PO PRN (02:14)
[2019-04-25] MEDS ORDERED: IPRATROPIUM/ALBUTEROL 0.5-2.5 MG/3 ML AMPUL NEB PRN (02:14)
[2019-04-25] MEDS ORDERED: CHLORPHENIRAMINE MALEATE 4 MG TABLET PO SCH (02:15)
[2019-04-25] MEDS ORDERED: AMPICILLIN SOD/SULBACTAM 3 GM VIAL IV PRN (02:29)
[2019-04-25] MEDS ORDERED: INSULIN GLARGINE,HUM.REC.ANLOG 1,000 UNIT/10 ML VIAL (PYX) SUBCUT PRN (02:32)
[2019-04-25] MEDS ORDERED: FLUTICASONE NASAL SPRAY 50 MCG/SPRY 120 SPRAY/16 GM ONE (02:55)
[2019-04-25] MEDS: OXYCODONE HCL SR 10 MG TABLET PO PRN ×2 (03:07→09:48)
[2019-04-25] MEDS: FLUTICASONE NASAL SPRAY 50 MCG/SPRY 120 SPRAY/16 GM NASL SCH ×3 (03:09→21:43)
[2019-04-25] MEDS: AMPICILLIN SODIUM/SULBACTAM NA 3 GM in NORMAL SALINE 100 ML IV SCH ×4 (03:21→21:45)
[2019-04-25] MEDS ORDERED: CEFEPIME 2 GM/D5W RTU 2 GM/50 ML RTUPB IV ONE (04:00)
[2019-04-25] MEDS: HEPARIN SOD (PORCINE) 5,000 UNIT/ML 1 ML SYRINGE SUBCUT SCH ×3 (05:50→21:46)
[2019-04-25] MEDS: BACLOFEN 10 MG TABLET PO SCH ×3 (05:54→21:43)
[2019-04-25] MEDS: GABAPENTIN 300 MG CAPSULE PO SCH ×3 (05:55→21:44)
[2019-04-25] MEDS: CHLORPHENIRAMINE MALEATE 4 MG TABLET PO SCH ×3 (05:55→17:53)
[2019-04-25] MEDS: NORMAL SALINE 1000 ML 1,000 ML IV PRN ×2 (06:19→15:02)
--- NOTE | 2019-04-25 06:31 | PDOC H&P ---
History of Present Illness Admission Date/PCP: 04/25/19 02:37 NALLELY COLINDRES PA-C Patient complains of: Shortness of breath History of Present Illness: ANKIT MERCER is a 38 year old male with a past medical history of diabetes, COPD, obstructive sleep apnea, morbid obesity, nonambulatory secondary to leg weakness and chronic back pain. Patient is prompted to the emergency room for shortness of breath and chest pain which is sharp in nature exacerbated by deep breathing and coughing. Patient is completely disheveled covered in excrement stating he has been bedbound for 2 weeks unable to mobilize to the commode and is without assistance at home. Imaging reveals a left-sided pneumonia he started on empiric antibiotics and referred to the hospitalist for admission. Past Medical History Cardiac Medical History: Reports: Hypertension Pulmonary Medical History: Reports: Bronchitis, Chronic Obstructive Pulmonary Disease (COPD), Pneumonia Endocrine Medical History: Reports: Diabetes Mellitus Type 2 Musculoskeltal Medical History: Reports: Arthritis Skin Medical History: Denies: Psoriasis Psychiatric Medical History: Reports: Depression Traumatic Medical History: Denies: Traumatic Brain Injury Hematology: Denies: Sickle Cell Disease, Bleeding Tendencies Past Surgical History Past Surgical History: Reports: Orthopedic Surgery - Back surgery Social History Information Source: Patient Smoking Status: Unknown if Ever Smoked Frequency of Alcohol Use: None Hx Recreational Drug Use: No Drugs: None Hx Prescription Drug Abuse: No - Advance Directive Resuscitation Status: Full Code Family History Family History: COPD, Hypertension Parental Family History Reviewed: Yes Children Family History Reviewed: Yes Sibling(s) Family History Reviewed.: Yes Medication/Allergy Home Medications: Albuterol Sulfate [Ventolin HFA MDI 18 GM] 2 puff IN Q6HP PRN 10/17/17 Baclofen [Baclofen 10 mg Tablet] 20 mg PO Q8 10/17/17 Gabapentin [Neurontin 300 mg Capsule] 600 mg PO Q8 10/17/17 Lisinopril/Hydrochlorothiazide [Lisinopril-Hctz 20-25 mg Tab] 1 tab PO DAILY 10/17/17 Methadone HCl [Dolophine 10 mg Tablet] 15 mg PO Q8 10/17/17 Metoprolol Tartrate [Lopressor 50 mg Tablet] 50 mg PO BIDBS 10/17/17 Oxycodone HCl [Oxycontin Sr 10 mg Tablet] 10 mg PO Q6HP PRN 12/11/17 Sitagliptin Phos/Metformin HCl [Janumet 50-1,000 mg Tablet] 1 tab PO BID 10/17/17 Insulin Glargine,Hum.rec.anlog [Rasyaaglariel Garcíapen U-100] 40 unit SQ QHS 10/09/18 Cefpodoxime Proxetil [Vantin 200 mg Tablet] 1 tab PO Q12 #14 tab 10/12/18 Ipratropium/Albuterol Sulfate [Duoneb 3 ml Ampul] 3 ml NEB Q4HP PRN #50 vial.neb 10/12/18 Methylprednisolone [Medrol Dosepack (4 mg/Tab) 21 Tab/Dosepak] 21 tab PO DAILY #1 dspk 10/12/18 Nicotine [Nicoderm 14 mg/24 Hr Transdermal Patch] 1 each TD DAILYP PRN patch.td24 10/12/18 Allergies/Adverse Reactions: No Known Allergies Allergy (Verified 10/09/18 17:56) Review of Systems Constitutional: PRESENT: as per HPI, fatigue, fever(s), weakness, weight gain Eyes: ABSENT: visual disturbances Ears: ABSENT: hearing changes Cardiovascular: PRESENT: as per HPI, dyspnea on exertion, edema, orthropnea Respiratory: PRESENT: as per HPI, cough - Nonproductive, dyspnea Gastrointestinal: ABSENT: abdominal pain, constipation, diarrhea, hematemesis, hematochezia, nausea, vomiting Genitourinary: ABSENT: dysuria, hematuria Musculoskeletal: PRESENT: back pain, muscle weakness - Bilateral lower extremity. ABSENT: joint swelling Integumentary: ABSENT: rash, wounds Neurological: ABSENT: abnormal gait, abnormal speech, confusion, dizziness, focal weakness, syncope Psychiatric: ABSENT: anxiety, depression, homidical ideation, suicidal ideation Endocrine: ABSENT: cold intolerance, heat intolerance, polydipsia, polyuria Hematologic/Lymphatic: ABSENT: easy bleeding, easy bruising Physical Exam Vital Signs: Temp Pulse Resp BP Pulse Ox 98.0 F 122 H 21 H 165/89 H 100 04/24/19 20:49 04/24/19 20:49 04/25/19 03:01 04/25/19 03:01 04/25/19 03:01 Intake & Output 04/23/19 04/24/19 04/25/19 11:59 11:59 11:59 Intake Total 1200 Balance 1200 Weight 158.757 kg General appearance: PRESENT: cooperative, disheveled, mild distress, morbidly obese Head exam: PRESENT: atraumatic, normocephalic Eye exam: PRESENT: conjunctiva pink, EOMI, PERRLA. ABSENT: scleral icterus Ear exam: PRESENT: normal external ear exam Mouth exam: PRESENT: moist, tongue midline Neck exam: ABSENT: carotid bruit, JVD, lymphadenopathy, thyromegaly Respiratory exam: PRESENT: accessory muscle use, crackles, prolonged expiratory phas, rhonchi, tachypnea. ABSENT: rales, wheezes Cardiovascular exam: PRESENT: RRR, +S1, +S2, tachycardia Pulses: PRESENT: normal dorsalis pedis pul Vascular exam: PRESENT: normal capillary refill GI/Abdominal exam: PRESENT: normal bowel sounds, soft. ABSENT: distended, guarding, mass, organolmegaly, rebound, tenderness Rectal exam: PRESENT: deferred Extremities exam: PRESENT: full ROM. ABSENT: calf tenderness, clubbing, pedal edema Neurological exam: PRESENT: alert, awake, oriented to person, oriented to place, oriented to time, oriented to situation, CN II-XII grossly intact. ABSENT: motor sensory deficit Psychiatric exam: PRESENT: appropriate affect, normal mood. ABSENT: homicidal ideation, suicidal ideation Skin exam: PRESENT: dry, intact, warm. ABSENT: cyanosis, rash Results Laboratory Results: 04/24/19 21:45 04/24/19 21:45 04/24/19 04/24/19 04/24/19 21:45 21:45 21:45 WBC 13.8 H RBC 4.24 L Hgb 14.0 Hct 40.4 MCV 95 MCH 33.1 MCHC 34.7 RDW 15.9 H Plt Count 191 Seg Neutrophils % 71.9 Lymphocytes % 20.8 Monocytes % 5.6 Eosinophils % 1.0 Basophils % 0.7 Absolute Neutrophils 9.9 H Absolute Lymphocytes 2.9 Absolute Monocytes 0.8 Absolute Eosinophils 0.1 Absolute Basophils 0.1 VBG pH VBG pCO2 VBG HCO3 VBG Base Excess Sodium 141.9 Potassium 3.5 L Chloride 110 H Carbon Dioxide 20 L Anion Gap 12 BUN 13 Creatinine 0.80 Est GFR ( Amer) > 60 Est GFR (Non-Af Amer) > 60 Glucose 136 H Lactic Acid 2.1 Calcium 9.2 Total Bilirubin 0.6 AST 12 L ALT 14 L Alkaline Phosphatase 75 Total Protein 7.0 Albumin 3.7 Urine Color Urine Appearance Urine pH Ur Specific V[place] Urine Protein Urine Glucose (UA) Urine Ketones Urine Blood Urine Nitrite Ur Leukocyte Esterase Urine WBC (Auto) Urine RBC (Auto) 04/24/19 04/24/19 21:45 22:50 WBC RBC Hgb Hct MCV MCH MCHC RDW Plt Count Seg Neutrophils % Lymphocytes % Monocytes % Eosinophils % Basophils % Absolute Neutrophils Absolute Lymphocytes Absolute Monocytes Absolute Eosinophils Absolute Basophils VBG pH 7.47 H VBG pCO2 28.1 L VBG HCO3 20.1 VBG Base Excess -2.1 Sodium Potassium Chloride Carbon Dioxide Anion Gap BUN Creatinine Est GFR ( Amer) Est GFR (Non-Af Amer) Glucose Lactic Acid Calcium Total Bilirubin AST ALT Alkaline Phosphatase Total Protein Albumin Urine Color YELLOW Urine Appearance SLIGHTLY-CLOUDY Urine pH 5.0 Ur Specific [place] 1.024 Urine Protein NEGATIVE Urine Glucose (UA) NEGATIVE Urine Ketones NEGATIVE Urine Blood NEGATIVE Urine Nitrite NEGATIVE Ur Leukocyte Esterase NEGATIVE Urine WBC (Auto) 1 Urine RBC (Auto) 1 04/24/19 23:37 Troponin I < 0.012 Impressions: Chest X-Ray 04/24/19 20:50 IMPRESSION: LEFT lower lobe opacity may be secondary to low lung volumes and subsegmental atelectasis versus developing consolidation. Please correlate with patient clinical findings and consider follow-up for resolution. copyright 2011 [employer]- All Rights Reserved Chest/Abdomen CTA 04/24/19 21:27 IMPRESSION: No aortic dissection or aneurysm. No large or central pulmonary embolus. Probable right upper lobe pneumonia with right lower lobe mucus plugging. Assessment and Plan - Diagnosis (1) Pneumonia Is this a current diagnosis for this admission?: Yes Plan: Pneumonia care set deployed, empiric antibiotics, follow-up blood culture, incentive spirometry, flutter valve and supplemental oxygen (2) Acute and chronic respiratory failure ([id number]) Is this a current diagnosis for this admission?: Yes Plan: Comp gated by COPD and obstructive sleep apnea, BiPAP initiated (3) Morbid obesity with BMI of 40.0-44.9, adult Is this a current diagnosis for this admission?: Yes Plan: morbid obesity will evaluate for metabolic cause with evaluation of thyroid function and dietitian consultation (4) Chronic back pain Is this a current diagnosis for this admission?: Yes Plan: Limit narcotics secondary to respiratory depression, NSAIDs as needed (5) Diabetes mellitus type 2 in obese Is this a current diagnosis for this admission?: Yes Plan: Long-acting insulin with sliding scale coverage ordered - Time Time Spent with patient: 35 or more minutes - Inpatient Certification Medical Necessity: Need Close Monitoring Due to Risk of Patient Decompensation
[2019-04-25 07:06] LABS: ABSOLUTE BASOPHILS # (AUTO) 0.1 10^3/uL (0.0-0.2); ABSOLUTE EOSINOPHILS # (AUTO) 0.2 10^3/uL (0.0-0.6); ABSOLUTE LYMPHOCYTES (AUTO) 2.7 10^3/uL (0.5-4.7); ABSOLUTE MONOCYTES (AUTO) 0.5 10^3/uL (0.1-1.4); ABSOLUTE NEUT (AUTO) 6.1 10^3/uL (1.7-8.2); BASOPHILS % (AUTO) 0.7 % (0-2); EOSINOPHILS % (AUTO) 2.6 % (0-6); HEMATOCRIT 39.1 % (37.9-51.0); HEMOGLOBIN 13.6 g/dL (13.5-17.0); LYMPHOCYTES % (AUTO) 27.8 % (13-45); MEAN CORPUSCULAR HEMOGLOBIN 33.3 pg (27.0-33.4); MEAN CORPUSCULAR HGB CONC 34.8 g/dL (32.0-36.0); MEAN CORPUSCULAR VOLUME 96 fl (80-97); MONOCYTES % (AUTO) 5.2 % (3-13); PLATELET COUNT 156 10^3/uL (150-450); RED BLOOD COUNT 4.09 10^6/uL (4.35-5.55); RED CELL DISTRIBUTION WIDTH 15.5 % (11.5-14.0); SEGMENTED NEUTROPHILS % (AUTO) 63.7 % (42-78); TOTAL CELLS COUNTED % (AUTO) 100 %; WHITE BLOOD COUNT 9.6 10^3/uL (4.0-10.5)
--- NOTE | 2019-04-25 07:50 | EKG REPORT ---
SEVERITY:- ABNORMAL ECG - SINUS TACHYCARDIA RIGHT BUNDLE BRANCH BLOCK : Confirmed by: Anna Damon MD 25-Apr-2019 07:49:04
--- NOTE | 2019-04-25 07:50 | EKG REPORT ---
SEVERITY:- ABNORMAL ECG - SINUS TACHYCARDIA RIGHT BUNDLE BRANCH BLOCK : Confirmed by: Anna Damon MD 25-Apr-2019 07:49:09
[2019-04-25] MEDS: METOPROLOL TARTRATE 50 MG TABLET PO SCH ×2 (08:17→17:52)
[2019-04-25] MEDS: IPRATROPIUM/ALBUTEROL 0.5-2.5 MG/3 ML AMPUL NEB SCH ×2 (08:17→16:27)
[2019-04-25] MEDS: INSULIN LISPRO 100 UNIT/ML 3 ML VIAL SUBCUT SCH ×3 (08:26→16:19)
[2019-04-25] MEDS: LISINOPRIL 10 MG TABLET PO SCH (09:50)
[2019-04-25] MEDS: HYDROCHLOROTHIAZIDE 25 MG TABLET PO SCH (09:51)
[2019-04-25] MEDS: METHADONE HCL 10 MG TABLET PO SCH ×2 (13:15→21:44)
[2019-04-25] MEDS ORDERED: GABAPENTIN 300 MG CAPSULE PO SCH (14:00)
[2019-04-25] MEDS ORDERED: BACLOFEN 10 MG TABLET PO SCH (14:00)
[2019-04-25] MEDS: OXYCODONE HCL IR 5 MG TABLET PO PRN (15:11)
--- NOTE | 2019-04-25 17:54 | Progress Note ---
Provider Note Provider Note: ANKIT MERCER is a 38 year old male with a past medical history of diabetes, COPD, obstructive sleep apnea, morbid obesity, nonambulatory secondary to leg weakness and chronic back pain who was admitted early this morning by the Subgrade Tester for acute on chronic respiratory failure secondary to pneumonia. Overnight events, vital signs, laboratory results, culture results, imaging, and plan of care were reviewed. Agree with the plan of care as established by the previous provider. (1) Pneumonia Patient is admitted to the medical floor and continuous cardiac telemetry. He is provided supplemental oxygen and BiPAP as needed to maintain saturations. Incentive spirometer and flutter valve when off BiPAP. He is empirically placed on IV Zosyn and cefepime will adjust as cultures result; Blood and sputum cultures are pending. (2) Acute and chronic respiratory failure (oljqu-qm-ybrykow) Improved; patient is now maintaining oxygen saturations on room air while at rest. Complicated COPD and obstructive sleep apnea. Management as above. (3) Morbid obesity with BMI of 40.0-44.9, adult Dietary discretion and lifestyle modifications are encouraged. Registered dietitian is consulted. Patient's morbid obesity directly contributes to his sleep apnea and chronic respiratory failure. This also makes him at increased risk for development of pneumonia and bedsores as he is nonambulatory due to obesity and chronic pain. Physical therapy is consulted. (4) Chronic back pain Limit narcotics secondary to respiratory depression, NSAIDs as needed Encourage nonpharmacological interventions such as ice, heat, repositionings, increased mobility and distraction. (5) Diabetes mellitus type 2 in obese Patient is placed on a consistent carb diet. Continue home dose long-acting insulin. Accu-Cheks before meals and at bedtime with Humalog for sliding scale coverage. Registered dietitian and museum educator are consulted.
[2019-04-25] MEDS: CEFEPIME HCL 2 GM in DEXTROSE 5%-WATER 50 ML IV SCH (18:00)
[2019-04-25] MEDS ORDERED: METOPROLOL TARTRATE 50 MG TABLET PO SCH (18:00)
[2019-04-25] MEDS ORDERED: CEFEPIME 2 GM/D5W RTU 2 GM/50 ML RTUPB IV SCH (18:00)
[2019-04-25] MEDS: GUAIFENESIN 600 MG TABLET.SA PO SCH (21:46)
[2019-04-25] MEDS ORDERED: INSULIN GLARGINE,HUM.REC.ANLOG 1,000 UNIT/10 ML VIAL (PYX) SUBCUT ONE (21:50)
[2019-04-25] MEDS ORDERED: [UNRECOGNIZED DRUG - OTHER] SQ SCH (22:00)
[2019-04-25] MEDS ORDERED: INSULIN GLARGINE HUM REC ANLOG 40 UNIT SQ SCH (22:00)
[2019-04-25] MEDS ORDERED: INSULIN GLARGINE,HUM.REC.ANLOG 1,000 UNIT/10 ML VIAL SUBCUT SCH (22:00)
[2019-04-26] MEDS: IPRATROPIUM/ALBUTEROL 0.5-2.5 MG/3 ML AMPUL NEB SCH ×3 (00:06→17:05)
[2019-04-26] MEDS: OXYCODONE HCL IR 5 MG TABLET PO PRN ×3 (00:19→16:42)
[2019-04-26] MEDS: CHLORPHENIRAMINE MALEATE 4 MG TABLET PO SCH (00:24)
[2019-04-26] MEDS: AMPICILLIN SODIUM/SULBACTAM NA 3 GM in NORMAL SALINE 100 ML IV SCH ×2 (04:00→08:59)
[2019-04-26] MEDS: KETOROLAC TROMETHAMINE INJ/PF 30 MG/1 ML SDV IV PRN ×2 (04:27→12:02)
[2019-04-26] MEDS: GABAPENTIN 300 MG CAPSULE PO SCH ×2 (05:11→14:25)
[2019-04-26] MEDS: METHADONE HCL 10 MG TABLET PO SCH ×2 (05:12→14:24)
[2019-04-26] MEDS: BACLOFEN 10 MG TABLET PO SCH ×2 (05:13→16:16)
[2019-04-26] MEDS: CEFEPIME HCL 2 GM in DEXTROSE 5%-WATER 50 ML IV SCH (05:13)
[2019-04-26] MEDS: HEPARIN SOD (PORCINE) 5,000 UNIT/ML 1 ML SYRINGE SUBCUT SCH ×2 (05:19→14:25)
[2019-04-26 06:20] LABS: ABSOLUTE BASOPHILS # (AUTO) 0.1 10^3/uL (0.0-0.2); ABSOLUTE EOSINOPHILS # (AUTO) 0.3 10^3/uL (0.0-0.6); ABSOLUTE LYMPHOCYTES (AUTO) 1.9 10^3/uL (0.5-4.7); ABSOLUTE MONOCYTES (AUTO) 0.5 10^3/uL (0.1-1.4); ABSOLUTE NEUT (AUTO) 7.1 10^3/uL (1.7-8.2); BASOPHILS % (AUTO) 0.6 % (0-2); EOSINOPHILS % (AUTO) 2.7 % (0-6); HEMATOCRIT 36.6 % (37.9-51.0); HEMOGLOBIN 12.6 g/dL (13.5-17.0); MEAN CORPUSCULAR HGB CONC 34.5 g/dL (32.0-36.0); MEAN CORPUSCULAR VOLUME 96 fl (80-97); MONOCYTES % (AUTO) 5.5 % (3-13); PLATELET COUNT 158 10^3/uL (150-450); RED BLOOD COUNT 3.83 10^6/uL (4.35-5.55); RED CELL DISTRIBUTION WIDTH 15.7 % (11.5-14.0); SEGMENTED NEUTROPHILS % (AUTO) 72.2 % (42-78); TOTAL CELLS COUNTED % (AUTO) 100 %; WHITE BLOOD COUNT 9.9 10^3/uL (4.0-10.5)
[2019-04-26 06:31] LABS: ANION GAP 12 (5-19); BLOOD UREA NITROGEN 12 mg/dL (7-20); CALCIUM 9.1 mg/dL (8.4-10.2); CARBON DIOXIDE 22 mmol/L (22-30); CHLORIDE 103 mmol/L (98-107); GLUCOSE 103 mg/dL (75-110); POTASSIUM 3.9 mmol/L (3.6-5.0)
[2019-04-26] MEDS: INSULIN LISPRO 100 UNIT/ML 3 ML VIAL SUBCUT SCH ×3 (07:56→17:25)
[2019-04-26] MEDS: METOPROLOL TARTRATE 50 MG TABLET PO SCH (08:36)
[2019-04-26] MEDS: FLUTICASONE NASAL SPRAY 50 MCG/SPRY 120 SPRAY/16 GM NASL SCH (09:01)
[2019-04-26] MEDS: GUAIFENESIN 600 MG TABLET.SA PO SCH (09:04)
[2019-04-26] MEDS: LISINOPRIL 10 MG TABLET PO SCH (09:04)
[2019-04-26] MEDS: HYDROCHLOROTHIAZIDE 25 MG TABLET PO SCH (09:04)
[2019-04-26] MEDS ORDERED: (PENDING PHARMACY ID) (Lisinopril/Hydrochlorothiazide [Zestoretic 20-25 Mg Tablet] 1 TAB) PO SCH (10:00)
[2019-04-26 15:38] VITALS: BP 132/62
[2019-04-27] MEDS ORDERED: LEVOFLOXACIN 750 MG TABLET PO SCH (10:00)
--- NOTE | 2019-04-28 16:42 | PDOC DISCHARGE SUMMARY ---
General - Admit/Disc Date/PCP Admission Date/Primary Care Provider: 04/25/19 02:37 NALLELY COLINDRES PA-C Discharge Date: 04/26/19 - Discharge Diagnosis (1) Pneumonia Is this a current diagnosis for this admission?: Yes Summary: The patient was admitted to the medical floor and monitored on continuous cardiac telemetry. He was supported with supplemental oxygen and BiPAP as needed to maintain oxygen saturations greater than 90%; upon arrival to the floor he no longer required oxygen. He has been off supplemental oxygen and BiPAP support for nearly 18 hours at time of discharge. He was empirically placed on IV Zosyn and cefepime; he is transition to p.o. Levaquin to complete course of therapy at time of discharge. 1 of 4 blood culture bottles positive for staph epidermidis (contaminant) otherwise negative. Urine culture is negative. Sputum culture was not obtained as the patient did not have a productive cough. Pulmonary toilet was encouraged with use of Mucinex, incentive spirometer and flutter valve therapies. At time of discharge, the patient was maintaining oxygen saturations on room air at his baseline mobility. He is discharged home with home health services. He is advised to complete his antibiotic therapy. He is instructed to stop smoking. He is encouraged to follow-up with his primary care provider within 1 week and to return to the emergency department as needed for concerning symptoms. (2) Acute and chronic respiratory failure (tcwvr-[id number]) Is this a current diagnosis for this admission?: Yes Summary: Resolved. Secondary to #1. (3) Diabetes mellitus type 2 in obese Is this a current diagnosis for this admission?: Yes Summary: The patient was placed on a consistent carb/cardiac diet. Dietary discretion, lifestyle modification, and medication compliance were strongly encouraged. To resume his home medication regiment at discharge. (4) Morbid obesity with BMI of 40.0-44.9, adult Is this a current diagnosis for this admission?: Yes Summary: Dietary discretion and lifestyle modifications are encouraged. Patient's morbid obesity directly contributes to his sleep apnea and chronic respiratory failure. This also makes him at increased risk for development of pneumonia and bedsores as he is nonambulatory due to obesity and chronic pain. Physical therapy was consulted; however, patient declined services.. (5) Chronic back pain Is this a current diagnosis for this admission?: Yes Summary: Resume home medication regimen at discharge. Encourage nonpharmacological interventions such as ice, heat, repositionings, increased mobility and distraction. - Additional Information Resuscitation Status: Full Code Discharge Diet: Cardiac, Diabetic Discharge Activity: Activity As Tolerated, Energy Conservation, Slowly Increase Activity, Walk Frequently Prescriptions: Fluticasone Propionate [Flonase Nasal [place] 50 Mcg/[place] 16 gm] 2 spray NASL Q12 #1 spray.pump Guaifenesin [Mucinex Sr 600 mg Tablet.sa] 600 mg PO Q12 #14 tablet.sa Levofloxacin [Levaquin 750 mg Tablet] 750 mg PO DAILY #7 tablet Home Medications: Baclofen [Baclofen 10 mg Tablet] 20 mg PO TID 04/25/19 Gabapentin [Neurontin 300 mg Capsule] 600 mg PO Q8 04/25/19 Insulin Glargine,Hum.rec.anlog [Basaglar Kwikpen U-100] 40 units SQ QHS 04/25/19 Lisinopril/Hydrochlorothiazide [Zestoretic 20-25 mg Tablet] 1 tab PO DAILY 04/25/19 Methadone HCl [Dolophine 10 mg Tablet] 15 mg PO Q8 04/25/19 Metoprolol Tartrate [Lopressor 50 mg Tablet] 50 mg PO BID 04/25/19 Oxycodone HCl [Oxycodone HCl 10 MG Tablet] 10 mg PO Q8HP PRN 04/25/19 Sitagliptin Phos/Metformin HCl [Janumet 50-1,000 mg Tablet] 1 tab PO BID 04/25/19 Acetaminophen [Tylenol 325 mg Tablet] 650 mg PO Q4HP PRN tablet 04/26/19 Baclofen [Baclofen 10 mg Tablet] 20 mg PO Q8 tablet 04/26/19 Fluticasone Propionate [Flonase Nasal [place] 50 Mcg/[place] 16 gm] 2 spray NASL Q12 #1 spray.pump 04/26/19 Gabapentin [Neurontin 300 mg Capsule] 600 mg PO Q8 capsule 04/26/19 Guaifenesin [Mucinex Sr 600 mg Tablet.sa] 600 mg PO Q12 #14 tablet.sa 04/26/19 Hydrochlorothiazide [Hydrodiuril 25 mg Tablet] 25 mg PO DAILY tablet 04/26/19 Levofloxacin [Levaquin 750 mg Tablet] 750 mg PO DAILY #7 tablet 04/26/19 Lisinopril [Prinivil 10 mg Tablet] 20 mg PO DAILY tablet 04/26/19 Metoprolol Tartrate [Lopressor 50 mg Tablet] 50 mg PO BIDBS tablet 04/26/19 History of Present Illness History of Present Illness: Per H&P by Dr. Mari: ANKIT MERCER is a 38 year old male with a past medical history of diabetes, COPD, obstructive sleep apnea, morbid obesity, nonambulatory secondary to leg weakness and chronic back pain. Patient is prompted to the emergency room for shortness of breath and chest pain which is sharp in nature exacerbated by deep breathing and coughing. Patient is completely disheveled covered in excrement stating he has been bedbound for 2 weeks unable to mobilize to the commode and is without assistance at home. Imaging reveals a left-sided pneumonia he started on empiric antibiotics and referred to the hospitalist for admission. Physical Exam Vital Signs: Temp Pulse Resp BP Pulse Ox 98.0 F 90 18 132/62 H 94 04/26/19 15:33 04/26/19 17:06 04/26/19 17:06 04/26/19 15:33 04/26/19 17:06 Intake & Output 04/27/19 04/28/19 04/29/19 06:59 06:59 06:59 Intake Total 1490 Output Total 1250 Balance 240 General appearance: PRESENT: no acute distress, disheveled - Poor hygiene and body odor; continues to have caked stool but declining assist with bath/shower., morbidly obese, well-developed, well-nourished Head exam: PRESENT: atraumatic, normocephalic Eye exam: PRESENT: conjunctiva pink, EOMI, PERRLA. ABSENT: scleral icterus Ear exam: PRESENT: normal external ear exam Mouth exam: PRESENT: moist, tongue midline Teeth exam: PRESENT: poor dentation Neck exam: ABSENT: carotid bruit, JVD, lymphadenopathy, thyromegaly Respiratory exam: PRESENT: clear to auscultation dez, symmetrical, unlabored. ABSENT: rales, rhonchi, wheezes Cardiovascular exam: PRESENT: RRR, +S1, +S2. ABSENT: diastolic murmur, rubs, systolic murmur Pulses: PRESENT: normal dorsalis pedis pul Vascular exam: PRESENT: normal capillary refill GI/Abdominal exam: PRESENT: normal bowel sounds, soft. ABSENT: distended, guarding, mass, organolmegaly, rebound, tenderness Rectal exam: PRESENT: deferred Extremities exam: PRESENT: full ROM. ABSENT: calf tenderness, clubbing, pedal edema Neurological exam: PRESENT: alert, awake, oriented to person, oriented to place, oriented to time, oriented to situation, CN II-XII grossly intact. ABSENT: motor sensory deficit Psychiatric exam: PRESENT: appropriate affect, normal mood. ABSENT: homicidal ideation, suicidal ideation Skin exam: PRESENT: dry, intact, warm. ABSENT: cyanosis, rash Results Laboratory Results: 04/26/19 05:28 04/26/19 05:28 04/24/19 23:37 Troponin I < 0.012 Impressions: Chest X-Ray 04/24/19 20:50 IMPRESSION: LEFT lower lobe opacity may be secondary to low lung volumes and subsegmental atelectasis versus developing consolidation. Please correlate with patient clinical findings and consider follow-up for resolution. copyright 2010 [employer]- All Rights Reserved Chest/Abdomen CTA 04/24/19 21:27 IMPRESSION: No aortic dissection or aneurysm. No large or central pulmonary embolus. Probable right upper lobe pneumonia with right lower lobe mucus plugging. Qualifiers - * PATIENT BEING DISCHARGED WITH ANY OF THE FOLLOWING DIAGNOSIS: No Acute Heart Failure - Is this a Heart Failure Patient?: No Plan Discharge Plan: Patient is discharged to home with self-care; have also arranged for home health nursing, physical therapy, and social insurance analyst services. Patient is already established with [facility]. Follow up with primary care provider within 1 week. Take medications as prescribed; complete course of Levaquin for treatment of community-acquired pneumonia. Eat a consistent carb/cardiac diet. Work on sustained weight loss. Do NOT smoke. Return to the emergency department as needed for concerning symptoms. Time Spent: Greater than 30 Minutes
== END 2019-04-26 18:00 | disposition home health service (06) | DRG 208 ==
LOC: ER 20:46 → EH 04-25 02:37 → 4N 04-25 14:21
PROVIDERS: ADMIT Internal Medicine; ATTEND Internal Medicine
PROC: 5A1935Z Respiratory Ventilation, Less than 24 Consecutive Hours (ICD-10-PCS; principal; 2019-04-25)
DX: J18.9 Pneumonia, unspecified organism (principal); J96.20 Acute and chronic respiratory failure, unspecified whether with hypoxia or hypercapnia; J44.0 Chronic obstructive pulmonary disease with (acute) lower respiratory infection; Z68.41 Body mass index [BMI] 40.0-44.9, adult; E66.01 Morbid (severe) obesity due to excess calories; E11.9 Type 2 diabetes mellitus without complications; M54.9 Dorsalgia, unspecified; G89.29 Other chronic pain; G47.33 Obstructive sleep apnea (adult) (pediatric); R53.1 Weakness; I10 Essential (primary) hypertension; M19.90 Unspecified osteoarthritis, unspecified site; F32.9 Major depressive disorder, single episode, unspecified; F17.200 Nicotine dependence, unspecified, uncomplicated; R00.0 Tachycardia, unspecified; Z79.4 Long term (current) use of insulin; Z82.49 Family history of ischemic heart disease and other diseases of the circulatory system; Z83.6 Family history of other diseases of the respiratory system; Z87.01 Personal history of pneumonia (recurrent)
CPT/HCPCS: 36415; 71045; 71275; 80048; 80053; 81001; 82803; 82962; 83036; 83605; 84443; 84484; 85025; 85610; 87040; 87077; 87086; 87186; 93005; 93010; 94660; 94667; 94668; 94799; 96361; 96365; 96375; 99285; J0295; J0692; J0696; J1644; J1815; J1885; J2270; J3490; J7030; J7050; J7060; J7620

== ENCOUNTER 2019-04-26 19:40 | Emergency (ER) | payer MEDICARE, MEDICAID ==
--- NOTE | 2019-04-26 22:10 | ER Document Report ---
ED General - General Chief Complaint: Other Stated Complaint: WELFARE CONCERNS Time Seen by Provider: 04/26/19 20:05 Primary Care Provider: NALLELY COLINDRES PA-C [Primary Care Provider] - Follow up as needed Notes: Patient is a 38-year-old male with a past medical history of morbid obesity, chronic low back pain on methadone and oxycodone for this pain, discharged in the hospital less than 2 hours ago who presents by [facility] after they did not feel comfortable returning him to his home due to the conditions at the home. Apparently this was a situation that was known of prior to the patient's discharge and APS had been contacted. Patient reports that he has been living in these conditions for several months as he no longer has anybody helping to care for him at home. He denies any new symptoms relative to this time of discharge, no new medical concerns that are prompting a repeat visit to the emergency department. The patient states that he does not wish to live in a nursing facility and is hoping that he could live with his sister. He does continue to do a mild, persistent cough with associated sputum production. Diagnosed the right upper lobe pneumonia yesterday and is currently on levofloxacin for this diagnosis. Nothing seems to improve or worsen the symptom. Denies any shortness of breath. TRAVEL OUTSIDE OF THE [place] IN LAST 30 DAYS: No - Related Data Allergies/Adverse Reactions: No Known Allergies Allergy (Verified 04/25/19 09:39) Past Medical History - General Information source: Patient - Social History Smoking Status: Current Every Day Smoker Frequency of alcohol use: None Drug Abuse: None Lives with: Alone Family History: Reviewed & Not Pertinent Patient has suicidal ideation: No Patient has homicidal ideation: No - Past Medical History Cardiac Medical History: Reports: Hx Hypertension Pulmonary Medical History: Reports: Hx Bronchitis, Hx COPD, Hx Pneumonia Endocrine Medical History: Reports: Hx Diabetes Mellitus Type 2 Renal/ Medical History: Denies: Hx Peritoneal Dialysis Musculoskeletal Medical History: Reports Hx Arthritis Skin Medical History: Denies Hx Psoriasis Psychiatric Medical History: Reports: Hx Anxiety, Hx Depression Traumatic Medical History: Denies: Hx Traumatic Brain Injury Past Surgical History: Reports: Hx Orthopedic Surgery - Back surgery - Immunizations Hx Diphtheria, Pertussis, Tetanus Vaccination: Yes Review of Systems - Review of Systems Notes: Constitutional: Negative for fever. HENT: Negative for sore throat. Eyes: Negative for visual changes. Cardiovascular: Negative for chest pain. Respiratory: Negative for shortness of breath. Positive for cough Gastrointestinal: Negative for abdominal pain, vomiting or diarrhea. Genitourinary: Negative for dysuria. Musculoskeletal: Negative for back pain. Skin: Negative for rash. Neurological: Negative for headaches, weakness or numbness. 10 point ROS negative except as marked above and in HPI. Physical Exam - Vital signs Vitals: Temp Pulse Resp BP Pulse Ox 98.7 F 104 H 23 H 145/66 H 94 04/26/19 19:53 04/26/19 19:53 04/26/19 19:53 04/26/19 19:53 04/26/19 19:53 Interpretation: Tachycardic Notes: PHYSICAL EXAMINATION: GENERAL: Morbidly obese male, well-appearing, well-nourished and in no acute distress. HEAD: Atraumatic, normocephalic. EYES: Pupils equal round and reactive to light, extraocular movements intact, sclera anicteric, conjunctiva are normal. ENT: nares patent, oropharynx clear without exudates. Moist mucous membranes. NECK: Normal range of motion, supple without lymphadenopathy LUNGS: Breath sounds clear to auscultation bilaterally and equal. No wheezes rales or rhonchi. HEART: Regular rate and rhythm without murmurs ABDOMEN: Soft, morbidly obese abdomen, nontender, normoactive bowel sounds. No guarding, no rebound. No masses appreciated. EXTREMITIES: Normal range of motion, no pitting or edema. No cyanosis. NEUROLOGICAL: No focal neurological deficits. Moves all extremities spontaneously and on command. PSYCH: Normal mood, normal affect. SKIN: Warm, Dry, normal turgor, no rashes or lesions noted. Course - Re-evaluation Re-evalutation: 04/26/19 22:08 Patient presents after family refused to release him to his place of residence. Discharge from the hospital several hours ago after being observed briefly for a right upper lobe pneumonia. Notes nothing is otherwise new or different and states he feels quite well. The patient is not definitive about whether or not he truly wants to remain in the emergency department for social work evaluation for placement but also likewise cannot identify a safe discharge plan for me. He therefore will remain in the emergency department on an elective basis for social work evaluation. APS has again been contacted as apparently they were unable to be reached prior to discharge based on nursing documentation. Home medications have been ordered. No diagnostic labs will be repeated at this time as the patient has no new medical concerns and would otherwise be appropriate for outpatient management. - Vital Signs Vital signs: Temp Pulse Resp BP Pulse Ox 98.7 F 104 H 23 H 145/66 H 94 04/26/19 19:53 04/26/19 19:53 04/26/19 19:53 04/26/19 19:53 04/26/19 19:53 - Laboratory Laboratory results interpreted by me: 04/27/19 01:15 POC Glucose 155 H Discharge - Discharge Clinical Impression: Opioid dependence Qualifiers: Substance use status: uncomplicated Qualified Code(s): F11.20 - Opioid dependence, uncomplicated Obesity Qualifiers: Obesity type: due to excess calories Obesity classification: unspecified obesity classification Serious obesity comorbidity presence: with serious comorbidity Qualified Code(s): E66.09 - Other obesity due to excess calories Chronic back pain Qualifiers: Back pain location: low back pain Back pain laterality: bilateral Sciatica presence: without sciatica Qualified Code(s): M54.5 - Low back pain Condition: Good Disposition: HOME, SELF-CARE Referrals: NALLELY COLINDRES PA-C [Primary Care Provider] - Follow up as needed
[2019-04-27] MEDS ORDERED: ACETAMINOPHEN 325 MG TABLET PO PRN (00:15)
[2019-04-27] MEDS ORDERED: INSULIN GLARGINE,HUM.REC.ANLOG 1,000 UNIT/10 ML VIAL (PYX) SUBCUT ONE (00:30)
[2019-04-27] MEDS: OXYCODONE HCL IR 5 MG TABLET PO PRN ×3 (00:50→17:58)
[2019-04-27] MEDS ORDERED: METHADONE HCL 10 MG TABLET PO ONE (00:52)
[2019-04-27] MEDS ORDERED: INSULIN GLARGINE,HUM.REC.ANLOG 1,000 UNIT/10 ML VIAL SUBCUT ONE (02:05)
[2019-04-27] MEDS: BACLOFEN 10 MG TABLET PO SCH ×3 (06:02→23:20)
[2019-04-27] MEDS: GABAPENTIN 300 MG CAPSULE PO SCH ×3 (06:02→23:20)
[2019-04-27] MEDS: METHADONE HCL 10 MG TABLET PO SCH ×3 (06:03→23:21)
[2019-04-27] MEDS: METOPROLOL TARTRATE 50 MG TABLET PO SCH ×2 (08:59→17:58)
--- NOTE | 2019-04-27 09:22 | ER Document Report ---
Doctor's Note Notes: 04/27/19 09:22 History; patient presents after family refused to release him to his place of residence. Discharge from the hospital several hours ago after being observed briefly for a right upper lobe pneumonia. Notes nothing is otherwise new or different and states he feels quite well. The patient is not definitive about whether or not he truly wants to remain in the emergency department for social work evaluation for placement but also likewise cannot identify a safe discharge plan for me. He therefore will remain in the emergency department on an elective basis for social work evaluation. APS has again been contacted as apparently they were unable to be reached prior to discharge based on nursing documentation. Home medications have been ordered. No diagnostic labs will be repeated at this time as the patient has no new medical concerns and would otherwise be appropriate for outpatient management. As the rounding physician this AM, I assessed the patient's labs, vitals, and records. No concerning findings this morning. Patient denies any acute complaints. Patient is cleared for disposition by social security specialist. PHYSICAL EXAMINATION: GENERAL: Unkept, morbidly obese. HEAD: Atraumatic, normocephalic. EYES: Pupils equal round extraocular movements intact, conjunctiva are normal. ENT: Nares patent NECK: Normal range of motion LUNGS: No respiratory distress Musculoskeletal: Normal range of motion NEUROLOGICAL: Normal speech, normal gait. PSYCH: Normal mood, normal affect. SKIN: Warm, Dry, normal turgor, no rashes or lesions noted. 04/27/19 17:03
[2019-04-27] MEDS: LISINOPRIL 10 MG TABLET PO SCH (10:54)
[2019-04-27] MEDS: LEVOFLOXACIN 750 MG TABLET PO SCH (10:54)
[2019-04-27] MEDS: SITAGLIPTIN PHOSPHATE 50 MG TABLET PO SCH ×2 (10:55→17:59)
[2019-04-27] MEDS: METFORMIN HCL 500 MG TABLET PO SCH ×2 (10:55→17:58)
[2019-04-27] MEDS: FLUTICASONE NASAL SPRAY 50 MCG/SPRY 120 SPRAY/16 GM NASL SCH ×2 (10:55→23:24)
[2019-04-27] MEDS: HYDROCHLOROTHIAZIDE 25 MG TABLET PO SCH (10:55)
[2019-04-27] MEDS ORDERED: KETOROLAC TROMETHAMINE 60 MG/2 ML SDV IM ONE (13:24)
[2019-04-27] MEDS ORDERED: INSULIN GLARGINE,HUM.REC.ANLOG 1,000 UNIT/10 ML VIAL SUBCUT SCH (22:00)
[2019-04-28] MEDS: OXYCODONE HCL IR 5 MG TABLET PO PRN ×3 (01:59→21:08)
[2019-04-28] MEDS: BACLOFEN 10 MG TABLET PO SCH ×2 (06:41→13:45)
[2019-04-28] MEDS: GABAPENTIN 300 MG CAPSULE PO SCH ×2 (06:42→13:43)
[2019-04-28] MEDS: METHADONE HCL 10 MG TABLET PO SCH ×2 (06:43→13:44)
[2019-04-28 06:47] VITALS: BP 129/70
[2019-04-28] MEDS: FLUTICASONE NASAL SPRAY 50 MCG/SPRY 120 SPRAY/16 GM NASL SCH (09:14)
[2019-04-28] MEDS: METFORMIN HCL 500 MG TABLET PO SCH ×2 (09:14→17:12)
[2019-04-28] MEDS: LEVOFLOXACIN 750 MG TABLET PO SCH (09:14)
[2019-04-28] MEDS: HYDROCHLOROTHIAZIDE 25 MG TABLET PO SCH (09:14)
[2019-04-28] MEDS: LISINOPRIL 10 MG TABLET PO SCH (09:15)
[2019-04-28] MEDS: SITAGLIPTIN PHOSPHATE 50 MG TABLET PO SCH ×2 (09:15→17:12)
[2019-04-28] MEDS: METOPROLOL TARTRATE 50 MG TABLET PO SCH ×2 (09:15→17:12)
--- NOTE | 2019-04-28 09:45 | ER Document Report ---
Doctor's Note Notes: 04/28/19 09:45 38-year-old male who presents today after being discharged yesterday for an upper lobe pneumonia on Levaquin after the finally transport service refused to leave the patient in his home secondary to the conditions of the home. Supposedly the patient does not want to go to a nursing care facility. He would like instead to possibly live with his sister. We are awaiting social work evaluation. 04/28/19 17:18 Patient states there is some in his house now that is able to take care of him. He also states home health is come to his house today. Patient is oriented x4. X-ray of the femur showed no fracture. Blood glucose as recorded. Patient does not want to stay here at this time. He is oriented x4. I do not believe we are able to hold the patient against his will. We awoken the patient to return at any time that he would like for further assessment and treatment. We have also help the patient to discuss his social situation with the social work team.
--- NOTE | 2019-04-28 11:40 | RADIOLOGY REPORT (SQ) ---
EXAM DESCRIPTION: FEMUR LEFT COMPLETED DATE/TIME: 04/28/2019 11:31 am REASON FOR STUDY: pain COMPARISON: None. NUMBER OF VIEWS: Two views. TECHNIQUE: Two radiographic images acquired of the left femur to include hip and knee in at least on e projection. LIMITATIONS: None. FINDINGS: MINERALIZATION: Normal. BONES: No acute fracture. No worrisome bone lesions. SOFT TISSUES: Large suprapatellar bursal effusion. OTHER: No other significant finding. IMPRESSION: Negative left femur. Joint effusion. TECHNICAL DOCUMENTATION: JOB ID: [id number] [employer]- All Rights Reserved Reading location - IP/workstation name: [email or web address]
[2019-04-28] MEDS ORDERED: KETOROLAC TROMETHAMINE INJ/PF 30 MG/1 ML SDV IV ONE (16:31)
== END 2019-04-28 21:30 | disposition home or self-care (01) ==
LOC: ER 19:40
DX: F11.20 Opioid dependence, uncomplicated (principal); E66.01 Morbid (severe) obesity due to excess calories; M54.5 Low back pain; G89.29 Other chronic pain; J44.0 Chronic obstructive pulmonary disease with (acute) lower respiratory infection; J18.9 Pneumonia, unspecified organism; R05 Cough; F17.200 Nicotine dependence, unspecified, uncomplicated; I10 Essential (primary) hypertension; E11.9 Type 2 diabetes mellitus without complications; Z59.8 Other problems related to housing and economic circumstances
CPT/HCPCS: 99284; 96374; 82962; 73552; A9270 ×21; J1885 ×2; J1815

== ENCOUNTER 2019-05-31 16:18 | Inpatient (IN) | payer MEDICARE, MEDICAID ==
--- NOTE | 2019-05-31 16:55 | RADIOLOGY REPORT (SQ) ---
EXAM DESCRIPTION: CHEST SINGLE VIEW COMPLETED DATE/TIME: 05/31/2019 4:45 pm REASON FOR STUDY: chest pain COMPARISON: None. EXAM PARAMETERS: NUMBER OF VIEWS: One view. TECHNIQUE: Single frontal radiographic view of the chest acquired. RADIATION DOSE: NA LIMITATIONS: None. FINDINGS: LUNGS AND PLEURA: Diminished lung volumes with patchy bilateral airspace opacities, greate st within the left lung base. No large effusion. No pneumothorax. MEDIASTINUM AND HILAR STRUCTURES: Stable. HEART AND VASCULAR STRUCTURES: Normal heart size. BONES: No acute findings. Posterior fusion hardware, stable. HARDWARE: Posterior fusion hardware per OTHER: No other significant finding. IMPRESSION: Low lung volumes with patchy, left greater than right, airspace disease suggestive of mu ltifocal pneumonia. TECHNICAL DOCUMENTATION: JOB ID: [id number] [employer]- All Rights Reserved Reading location - IP/workstation name: [email or web address]
[2019-05-31 16:58] LABS: ABSOLUTE BASOPHILS # (AUTO) 0.1 10^3/uL (0.0-0.2); ABSOLUTE EOSINOPHILS # (AUTO) 0.2 10^3/uL (0.0-0.6); ABSOLUTE LYMPHOCYTES (AUTO) 1.7 10^3/uL (0.5-4.7); ABSOLUTE MONOCYTES (AUTO) 0.4 10^3/uL (0.1-1.4); ABSOLUTE NEUT (AUTO) 9.8 10^3/uL (1.7-8.2); BASOPHILS % (AUTO) 0.9 % (0-2); EOSINOPHILS % (AUTO) 1.3 % (0-6); HEMATOCRIT 34.7 % (37.9-51.0); HEMOGLOBIN 11.9 g/dL (13.5-17.0); LYMPHOCYTES % (AUTO) 13.7 % (13-45); MEAN CORPUSCULAR HEMOGLOBIN 32.4 pg (27.0-33.4); MEAN CORPUSCULAR HGB CONC 34.4 g/dL (32.0-36.0); MEAN CORPUSCULAR VOLUME 94 fl (80-97); MONOCYTES % (AUTO) 3.6 % (3-13); PLATELET COUNT 210 10^3/uL (150-450); RED BLOOD COUNT 3.68 10^6/uL (4.35-5.55); RED CELL DISTRIBUTION WIDTH 16.8 % (11.5-14.0); SEGMENTED NEUTROPHILS % (AUTO) 80.5 % (42-78); TOTAL CELLS COUNTED % (AUTO) 100 %; WHITE BLOOD COUNT 12.2 10^3/uL (4.0-10.5)
[2019-05-31 17:16] LABS: ALANINE AMINOTRANSFERASE 7 U/L (21-72); ALBUMIN 3.9 g/dL (3.5-5.0); ALKALINE PHOSPHATASE 85 U/L (38-126); ANION GAP 10 (5-19); ASPARTATE AMINO TRANSFERASE 46 U/L (17-59); BILIRUBIN,TOTAL 1.2 mg/dL (0.2-1.3); BLOOD UREA NITROGEN 32 mg/dL (7-20); CARBON DIOXIDE 25 mmol/L (22-30); CHLORIDE 102 mmol/L (98-107); GLUCOSE 199 mg/dL (75-110); POTASSIUM 4.3 mmol/L (3.6-5.0); TOTAL PROTEIN 7.9 g/dL (6.3-8.2)
[2019-05-31] MEDS ORDERED: ALBUTEROL SULFATE 0.083% NEB 2.5 MG/3 ML AMPUL NEB ONE (17:31)
[2019-05-31 17:32] LABS: APPEARANCE,URINE CLEAR; BILIRUBIN,URINE NEGATIVE (NEGATIVE); COLOR,URINE YELLOW; GLUCOSE, URINE NEGATIVE (NEGATIVE); KETONES,URINE NEGATIVE (NEGATIVE); LEUKOCYTE ESTERASE,URINE NEGATIVE (NEGATIVE); NITRITE,URINE NEGATIVE (NEGATIVE); PROTEIN,URINE NEGATIVE (NEGATIVE); URINE SPECIFIC GRAVITY 1.015
[2019-05-31 17:59] LABS: VENOUS BLOOD BASE EXCESS -0.5 mmol/L; VENOUS BLOOD PCO2 34.4 mmHg (35-63); VENOUS BLOOD PH 7.44 (7.30-7.42)
--- NOTE | 2019-05-31 18:50 | RADIOLOGY REPORT (SQ) ---
EXAM DESCRIPTION: CTA CHEST COMPLETED DATE/TIME: 05/31/2019 6:40 pm REASON FOR STUDY: sob hypoxia diaphoresis COMPARISON: Chest radiograph prior chest CT 04/24/2019 TECHNIQUE: CT scan of the chest performed using helical scanning technique with dynamic intravenous contrast injection. Images reviewed with lung, soft tissue and bone windows. Reconstructed coronal and sagittal MPR images reviewed. Additional 3 dimensional post-processing performed to develop Maximal Intensity Projection images ([place] P). All images stored on PACS. All CT scanners at this facility use dose modulation, iterative reconstruction, and/or weight based d osing when appropriate to reduce radiation dose to as low as reasonably achievable (ALARA). [facility]: Dose Right [facility]: CareDose [facility]: Dose Right [facility]: Teradose 4D [facility]: [employer] CONTRAST TYPE AND DOSE: Not recorded not recorded Contrast bolus not optimized for the pulmonary arteries. RENAL FUNCTION: GFR > 60. RADIATION DOSE: . LIMITATIONS: None. FINDINGS: LUNGS AND PLEURA: There are now diffuse parenchymal opacities throughout both lungs with a ir bronchograms. No effusions. No pneumothorax. AORTA AND GREAT VESSELS: No aneurysm. Contrast bolus not optimized for the aorta. HEART: No pericardial effusion. No significant coronary artery calcifications. PULMONARY ARTERIES: No emboli visualized in the main pulmonary arteries or the segmental branches. L imited visualization. HILAR AND MEDIASTINAL STRUCTURES: No identified masses or abnormal nodes. HARDWARE: None in the chest. UPPER ABDOMEN: See separate report of the CT of the abdomen. THYROID AND OTHER SOFT TISSUES: No masses. No adenopathy. BONES: Extensive spine hardware. 3D MIPS: Confirm above findings. OTHER: No other significant finding. IMPRESSION: No central pulmonary emboli. Extensive parenchymal opacities throughout both lungs most consistent with pneumonia. COMMENT: Quality ID # [id number]: Final reports with documentation of one or more dose reduction techniques (e.g., Automated exposure control, adjustment of the mA and/or kV according to patient size, use of iterative reconstruction technique) TECHNICAL DOCUMENTATION: JOB ID: [id number] [employer]- All Rights Reserved Reading location - IP/workstation name: [email or web address]
--- NOTE | 2019-05-31 18:58 | RADIOLOGY REPORT (SQ) ---
EXAM DESCRIPTION: CT ABD/PELVIS WITH IV ONLY COMPLETED DATE/TIME: 05/31/2019 6:40 pm REASON FOR STUDY: sob hypoxia diaphoresis COMPARISON: None. TECHNIQUE: CT scan of the abdomen and pelvis performed using helical scanning technique with dynamic intravenous contrast injection. No oral contrast. Images reviewed with lung, soft tissue, and bone windows. Reconstructed coronal and sagittal MPR images reviewed. Delayed images for evaluation of the urinary system also acquired. All images stored on PACS. All CT scanners at this facility use dose modulation, iterative reconstruction, and/or weight based d osing when appropriate to reduce radiation dose to as low as reasonably achievable (ALARA). [facility]: Dose Right [facility]: CareDose [facility]: Dose Right [facility]: Teradose 4D [facility]: [employer] CONTRAST TYPE AND DOSE: contrast/concentration: Isovue 350.00 mg/ml; Total Contrast Delivered: 100.0 ml; Total Saline Delivered: 72.0 ml RENAL FUNCTION: BUN 32 creatinine 0.85 RADIATION DOSE: CT Rad equipment meets quality standard of care and radiation dose reduction techniq ues were employed. CTDIvol: 26.4 - 41.8 mGy. DLP: 5827 mGy-cm.. LIMITATIONS: None. FINDINGS: LOWER CHEST: There is considerable opacification in each lower lobe, left more than right. Air bronchograms are present. LIVER: Normal size. No masses. No dilated ducts. SPLEEN: Splenomegaly. PANCREAS: No masses. No significant calcifications. No adjacent inflammation or peripancreatic fluid collections. Pancreatic duct not dilated. GALLBLADDER: No identified stones by CT criteria. No inflammatory changes to suggest cholecystitis. ADRENAL GLANDS: No significant masses or asymmetry. RIGHT KIDNEY AND URETER: No solid masses. No significant calcifications. No hydronephrosis or hyd roureter. LEFT KIDNEY AND URETER: No solid masses. No significant calcifications. No hydronephrosis or hydr oureter. AORTA AND VESSELS: No aneurysm. No dissection. Renal arteries, SMA, celiac without stenosis. RETROPERITONEUM: No retroperitoneal adenopathy, hemorrhage or masses. BOWEL AND PERITONEAL CAVITY: No masses or inflammatory changes. No free fluid or peritoneal masses. APPENDIX: Not identified. PELVIS: No mass. No free fluid. Normal bladder. ABDOMINAL WALL: No masses. No hernias. BONES: Rods are present in the spine. OTHER: No other significant finding. IMPRESSION: Cannot exclude dense pulmonary edema. Cannot exclude lower lobe pneumonias. Splenomega ly. TECHNICAL DOCUMENTATION: JOB ID: [id number] Quality ID # [id number]: Final reports with documentation of one or more dose reduction techniques (e.g., Au tomated exposure control, adjustment of the mA and/or kV according to patient size, use of iterative reconstruction technique) 2010 [employer]- All Rights Reserved Reading location - IP/workstation name: [email or web address]
[2019-05-31] MEDS ORDERED: CEFTRIAXONE 1 GM/D5W RTU 1 GM/50 ML RTUPB IV ONE (19:01)
[2019-05-31] MEDS ORDERED: DOXYCYCLINE HYCLATE INJ 100 MG VIAL IV ONE (19:01)
--- NOTE | 2019-05-31 19:03 | ER Document Report ---
ED General - General Chief Complaint: Respiratory Distress Stated Complaint: DIFFFICULTY BREATHING Time Seen by Provider: 05/31/19 16:39 Primary Care Provider: NALLELY COLINDRES PA-C [Primary Care Provider] - Follow up as needed Mode of Arrival: Medic Information source: Patient, Emergency Med Personnel, Dr. Roland, [facility] Records Notes: 38-year-old male with hypertension, type 2 diabetes, COPD (continues to use tobacco) disease presents via EMS from his primary care physician's office after being found to be hypoxic 72%, diaphoretic and tachycardic. Patient reports a nonproductive cough, shortness of breath and sweating that has been going on for 3 days. Patient is not on continuous oxygen. 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 He denies any perineal pain, abdominal pain. TRAVEL OUTSIDE OF THE [place] IN LAST 30 DAYS: No - HPI Onset: Other Onset/Duration: Gradual, Persistent Quality of pain: No pain Severity: None Pain Level: Denies Associated symptoms: Nonproductive cough, Shortness of breath, Sweating. denies: Chest pain, Fever, Headache, Leg swelling, Nausea, Vomiting Exacerbated by: Walking, Coughing, Deep breathing Relieved by: Denies Similar symptoms previously: Yes Recently seen / treated by doctor: Yes - Seen today by his primary care physician and sent to the emergency departme - Related Data Allergies/Adverse Reactions: No Known Allergies Allergy (Verified 04/25/19 09:39) Past Medical History - General Information source: Patient, Emergency Med Personnel, Dr. Roland, [facility] Records - Social History Smoking Status: Current Every Day Smoker Cigarette use (# per day): Yes - 20 Smoking Education Provided: Yes - Smoking cessation counseling was provided for 4 minutes at the bedside Frequency of alcohol use: None Drug Abuse: None Lives with: Family Family History: Reviewed & Not Pertinent Patient has suicidal ideation: No Patient has homicidal ideation: No - Past Medical History Cardiac Medical History: Reports: Hx Hypertension Pulmonary Medical History: Reports: Hx Bronchitis, Hx COPD, Hx Pneumonia Endocrine Medical History: Reports: Hx Diabetes Mellitus Type 2 Renal/ Medical History: Denies: Hx Peritoneal Dialysis Musculoskeletal Medical History: Reports Hx Arthritis Skin Medical History: Denies Hx Psoriasis Psychiatric Medical History: Reports: Hx Anxiety, Hx Depression Traumatic Medical History: Denies: Hx Traumatic Brain Injury Past Surgical History: Reports: Hx Orthopedic Surgery - Back surgery - Immunizations Hx Diphtheria, Pertussis, Tetanus Vaccination: Yes Review of Systems - Review of Systems Notes: REVIEW OF SYSTEMS: CONSTITUTIONAL : Denies fever, +chills, + sweats. Denies recent illness. Den ies weight loss, recent hospitalizations. EENT: Denies visual changes, eye pain. Denies sore throat, oral lesions, difficulty swallowing. CARDIOVASCULAR: Denies chest pain. Denies palpitations. Denies lower extremity edema. RESPIRATORY: + cough. + shortness of breath, wheezing. GASTROINTESTINAL: Denies abdominal pain or distention. Denies nausea, vomiting, or diarrhea. Denies blood in vomitus, stools, or per rectum. Denies black, tarry stools. Denies constipation. GENITOURINARY: Denies difficulty urinating, painful urination, frequency, blood in urine, testicular pain or penile discharge. MUSCULOSKELETAL: Denies back or neck pain or stiffness. Denies joint pain or swelling. SKIN: Denies rash, lesions or sores. HEMATOLOGIC : Denies easy bruising or bleeding. LYMPHATIC: Denies swollen glands. NEUROLOGICAL: Denies confusion or altered mental status. Denies loss of cons ciousness. Denies dizziness or lightheadedness. Denies headache. Denies weakness or paralysis. Denies problems difficulty with ambulation, slurred speech. Denies sensory loss, numbness, or tingling. Denies seizures. PSYCHIATRIC: Denies anxiety or stress. Denies depression, suicidal ideation, or Physical Exam - Vital signs Vitals: Resp 25 H 05/31/19 16:22 Interpretation: Tachycardic, Hypoxic, Tachypneic - Notes Notes: PHYSICAL EXAMINATION: GENERAL: Diaphoretic, moderate distress, accessory muscle use, arrived on BiPAP HEAD: Atraumatic, normocephalic. EYES: Pupils equal round and reactive to light, extraocular movements intact, sclera anicteric, conjunctiva are normal. ENT: Nares patent, oropharynx clear without exudates. Moist mucous membranes. NECK: Normal range of motion, supple without lymphadenopathy LUNGS: Coarse breath sounds in the left lower lung field. Patient on BiPAP. HEART: Regular rate and rhythm without murmurs ABDOMEN: Soft, nontender, nondistended abdomen. No guarding, no rebound. No masses appreciated. : Diffuse erythema of the perineum without associated tenderness, no gangrenous tissue. Musculoskeletal: Normal range of motion, no pitting or edema. No cyanosis. NEUROLOGICAL: Cranial nerves grossly intact. Normal speech, normal gait. Normal sensory, motor exams PSYCH: Normal mood, normal affect. SKIN: Warm, Dry, normal turgor, no rashes or lesions noted. Course - Re-evaluation Re-evalutation: 05/31/19 19:46 Laboratory 05/31/19 05/31/19 05/31/19 16:29 16:29 16:29 WBC 12.2 H RBC 3.68 L Hgb 11.9 L Hct 34.7 L MCV 94 MCH 32.4 MCHC 34.4 RDW 16.8 H Plt Count 210 Seg Neutrophils % 80.5 H Lymphocytes % 13.7 Monocytes % 3.6 Eosinophils % 1.3 Basophils % 0.9 Absolute Neutrophils 9.8 H Absolute Lymphocytes 1.7 Absolute Monocytes 0.4 Absolute Eosinophils 0.2 Absolute Basophils 0.1 VBG pH 7.44 H VBG pCO2 34.4 L VBG HCO3 23.0 VBG Base Excess -0.5 Sodium 137.2 Potassium 4.3 Chloride 102 Carbon Dioxide 25 Anion Gap 10 BUN 32 H Creatinine 0.85 Est GFR ( Amer) > 60 Est GFR (Non-Af Amer) > 60 Glucose 199 H Calcium 9.0 Total Bilirubin 1.2 Direct Bilirubin 1.0 H Neonat Total Bilirubin Not Reportable Neonat Direct Bilirubin Not Reportable Neonat Indirect Bili Not Reportable AST 46 ALT 7 L Alkaline Phosphatase 85 Troponin I Total Protein 7.9 Albumin 3.9 Urine Color Urine Appearance Urine pH Ur Specific Douglas Urine Protein Urine Glucose (UA) Urine Ketones Urine Blood Urine Nitrite Urine Bilirubin Urine Urobilinogen Ur Leukocyte Esterase Urine WBC (Auto) Urine RBC (Auto) Urine Mucus (Auto) Urine Ascorbic Acid 05/31/19 05/31/19 16:29 17:13 WBC RBC Hgb Hct MCV MCH MCHC RDW Plt Count Seg Neutrophils % Lymphocytes % Monocytes % Eosinophils % Basophils % Absolute Neutrophils Absolute Lymphocytes Absolute Monocytes Absolute Eosinophils Absolute Basophils VBG pH VBG pCO2 VBG HCO3 VBG Base Excess Sodium Potassium Chloride Carbon Dioxide Anion Gap BUN Creatinine Est GFR ( Amer) Est GFR (Non-Af Amer) Glucose Calcium Total Bilirubin Direct Bilirubin Neonat Total Bilirubin Neonat Direct Bilirubin Neonat Indirect Bili AST ALT Alkaline Phosphatase Troponin I < 0.012 Total Protein Albumin Urine Color YELLOW Urine Appearance CLEAR Urine pH 5.0 Ur Specific Douglas 1.015 Urine Protein NEGATIVE Urine Glucose (UA) NEGATIVE Urine Ketones NEGATIVE Urine Blood NEGATIVE Urine Nitrite NEGATIVE Urine Bilirubin NEGATIVE Urine Urobilinogen 4.0 H Ur Leukocyte Esterase NEGATIVE Urine WBC (Auto) 0 Urine RBC (Auto) 1 Urine Mucus (Auto) RARE Urine Ascorbic Acid NEGATIVE Chest X-Ray 05/31/19 16:24 IMPRESSION: Low lung volumes with patchy, left greater than right, airspace disease suggestive of multifocal pneumonia. Abdomen/Pelvis CT 05/31/19 17:28 IMPRESSION: Cannot exclude dense pulmonary edema. Cannot exclude lower lobe pneumonias. Splenomegaly. Chest/Abdomen CTA 05/31/19 17:28 IMPRESSION: No central pulmonary emboli. Extensive parenchymal opacities throughout both lungs most consistent with pneumonia. Temp Pulse Resp BP Pulse Ox 100.2 F 129 H 21 H 122/61 94 05/31/19 16:37 05/31/19 16:37 05/31/19 18:01 05/31/19 18:01 05/31/19 18:28 05/31/19 20:01 38-year-old male with a history of COPD, diabetes presents with complaint of shortness of breath from his primary care physician's office. EMS reported that the patient was found to be hypoxic and 72% on room air. Patient did receive breathing treatments and Solu-Medrol prior to arrival. Upon my exam patient is diaphoretic, tachycardic, hypoxic and has a low-grade temp. Patient is on BiPAP upon my exam. CBC shows a mild leukocytosis and stable anemia. CMP shows hyperglycemia without evidence of DKA. VBG unremarkable. Urinalysis within normal limits. Chest x-ray shows multifocal pneumonia, CT shows no evidence of pulmonary embolism. Patient did receive additional breathing treatments, ceftriaxone, doxycycline during his ED course. On reevaluation patient requesting to be taken off BiPAP. We did attempt this and patient maintained an O2 saturation of 90%. He is now on 3 L nasal cannula. He is agreeable with admission. I did speak to Dr. Hernandez who has agreed to admit the patient to a medical floor. - Vital Signs Vital signs: Temp Pulse Resp BP Pulse Ox 100.2 F 129 H 21 H 122/61 94 05/31/19 16:37 05/31/19 16:37 05/31/19 18:01 05/31/19 18:01 05/31/19 18:28 - Laboratory Result Diagrams: 05/31/19 16:29 05/31/19 16:29 Laboratory results interpreted by me: 05/31/19 05/31/19 05/31/19 16:29 16:29 16:29 WBC 12.2 H RBC 3.68 L Hgb 11.9 L Hct 34.7 L RDW 16.8 H Seg Neutrophils % 80.5 H Absolute Neutrophils 9.8 H VBG pH 7.44 H VBG pCO2 34.4 L BUN 32 H Glucose 199 H Direct Bilirubin 1.0 H ALT 7 L Urine Urobilinogen 05/31/19 17:13 WBC RBC Hgb Hct RDW Seg Neutrophils % Absolute Neutrophils VBG pH VBG pCO2 BUN Glucose Direct Bilirubin ALT Urine Urobilinogen 4.0 H - Diagnostic Test Radiology reviewed: Image reviewed, Reports reviewed - EKG Interpretation by Me EKG shows normal: Sinus rhythm Rate: Tachycardia Rhythm: NSR [place]/QRS: RBBB When compared to previous EKG there are: No significant change Discharge - Discharge Clinical Impression: Multifocal pneumonia, Hypoxia, Morbid obesity with BMI of 40.0-44.9, adult, COPD exacerbation, DVT prophylaxis, Tachycardia Pneumonia Qualifiers: Pneumonia type: due to unspecified organism Laterality: unspecified laterality Lung location: unspecified part of lung Qualified Code(s): J18.9 - Pneumonia, unspecified organism Fever Qualifiers: Fever type: unspecified Qualified Code(s): R50.9 - Fever, unspecified Condition: Good Disposition: ADMITTED INPATIENT Admitting Provider: Mary (Hospitalist) Unit Admitted: Medical Floor Referrals: NALLELY COLINDRES PA-C [Primary Care Provider] - Follow up as needed
[2019-05-31] MEDS ORDERED: ACETAMINOPHEN 325 MG TABLET PO ONE (19:51)
--- NOTE | 2019-05-31 20:34 | EKG REPORT ---
SEVERITY:- ABNORMAL ECG - SINUS TACHYCARDIA RIGHT BUNDLE BRANCH BLOCK : Confirmed by: Omari Elena 31-May-2019 20:33:57
[2019-05-31] MEDS ORDERED: TUBERCULIN,PURIF.PROT.DERIV. 5 TU/0.1 ML TEST 1 ML VIAL ID ONE ×2 (20:38→23:00)
[2019-05-31] MEDS ORDERED: ACETAMINOPHEN 325 MG TABLET PO PRN (20:38)
[2019-05-31] MEDS ORDERED: GUAIFENESIN SYRP 200 MG/10 ML UDC PO PRN (20:38)
[2019-05-31] MEDS ORDERED: MAGNESIUM HYDROXIDE SUSP 30 ML UDCUP PO PRN (20:45)
[2019-05-31] MEDS ORDERED: MORPHINE SULFATE 10 MG/ML INJ IV PRN (20:45)
[2019-05-31] MEDS ORDERED: IBUPROFEN 800 MG TABLET PO PRN (20:45)
[2019-05-31] MEDS ORDERED: MAG HYDROX/AL HYDROX/SIMETH SUSP 30 ML UDCUP PO PRN (20:45)
[2019-05-31] MEDS ORDERED: NICOTINE 21 MG/24 HR PATCH.TD24 TD PRN (20:45)
[2019-05-31] MEDS ORDERED: HYDRALAZINE HCL INJ/PF 20 MG/1 ML SDV IV PRN (20:45)
[2019-05-31] MEDS ORDERED: GLUCAGON,HUMAN RECOMB 1 MG INJ IM PRN (20:50)
[2019-05-31] MEDS ORDERED: DEXTROSE 40% GEL 15 GM TUBE PO PRN ×2 (20:50)
[2019-05-31] MEDS ORDERED: DEXTROSE 50%-WATER 25 GM/50 ML DISP.SYRIN IV PRN ×2 (20:50)
[2019-05-31] MEDS ORDERED: CEFTRIAXONE 1 GM/D5W RTU 1 GM/50 ML RTUPB IV SCH (22:00)
[2019-05-31] MEDS: HEPARIN SOD (PORCINE) 5,000 UNIT/ML 1 ML VIAL SUBCUT SCH (23:15)
[2019-05-31] MEDS: GUAIFENESIN 600 MG TABLET.SA PO SCH (23:27)
[2019-05-31] MEDS: METHYLPREDNISOLONE INJ 40 MG/1 ML SDV IV SCH (23:27)
[2019-05-31] MEDS: AZITHROMYCIN 500 MG in DEXTROSE 5%-WATER 250 ML IV SCH (23:28)
--- NOTE | 2019-06-01 00:04 | PDOC H&P ---
History of Present Illness Admission Date/PCP: 05/31/2019 19:55 NALLELY COLINDRES PA-C Patient complains of: Dyspnea History of Present Illness: ANKIT MERCER is a 38 year old male who presented to the emergency room with acute dyspnea. Patient admits to gradually worsening dyspnea since waking up this morning and presenting to his primary care provider's office today where he was subsequently sent to the emergency room for further evaluation due to respiratory distress, tachycardia, diaphoresis and an oxygen saturation of 72% on room air. He admits that his dyspnea is severe and is worsened by any activity. His dyspnea has been accompanied by a nonproductive cough and diaphoresis both of which have been gradually worsening with his dyspnea as the day progressed. He denies other accompanying or associated symptoms. He admits numerous prior similar episodes related to his COPD, pneumonia or bronchitis. He has not identified any other aggravating or ameliorating factors for his dyspnea. In the emergency room he was found to be dyspneic and was on BiPAP on his arrival which was continued throughout most of his ER course. He has continued to be hypoxic throughout his ER course requiring supplemental oxygen currently at 3 L/min via nasal cannula. His CBC showed a white blood count of 12,200, his serum glucose was 199 and the remainder of his laboratory evaluation was unremarkable. A chest x-ray and a CT scan of his chest were suggestive of multifocal pneumonia. Past Medical History Cardiac Medical History: Reports: Hypertension Denies: Atrial Fibrillation, Congestive Heart Failure, Coronary Artery Disease, DVT, Myocardial Infarction, Hyperlipidema, Peripheral Vascular Disease, Pulmonary Embolism Pulmonary Medical History: Reports: Bronchitis, Chronic Obstructive Pulmonary Disease (COPD), Intubation, Pneumonia, Respiratory Failure Denies: Asthma EENT Medical History: Denies: Cataracts, Ears - Hearing aids Neurological Medical History: Denies: Hemorrhagic CVA, Ischemic CVA, Multiple Sclerosis, Seizures Endocrine Medical History: Reports: Diabetes Mellitus Type 2, Obesity Denies: Diabetes Mellitus Type 1, Hyperthyroidism, Hypothyroidism Renal/ Medical History: Denies: Chronic Kidney Disease, Nephrolithiasis Malignancy Medical History: Reports: None GI Medical History: Denies: Cirrhosis, Crohn's Disease, Hepatitis, Ulcerative Colitis Musculoskeltal Medical History: Reports: Arthritis, Other - Chronic back pain Denies: Gout Skin Medical History: 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 Denies: Eczema, Psoriasis Psychiatric Medical History: Reports: Depression, General Anxiety Disorder, Tobacco Dependency Denies: Alcohol Dependency, Substance Abuse Traumatic Medical History: Reports: None Hematology: Denies: Anemia, Bleeding Tendencies Infectious Medical History: Reports: None Past Surgical History Past Surgical History: Reports: Orthopedic Surgery - Back surgery, Other - Surgical treatment of Adeline's gangrene Social History Information Source: Patient Lives with: Family Smoking Status: Current Every Day Smoker Cigarettes Packs Per Day: 1 Frequency of Alcohol Use: None Hx Recreational Drug Use: No Drugs: None Hx Prescription Drug Abuse: No - Advance Directive Resuscitation Status: Full Code Surrogate healthcare decision maker:: Marychuy Suggs Family History Family History: CAD, DM, Hypertension. denies: Malignancy Parental Family History Reviewed: Yes Children Family History Reviewed: No Sibling(s) Family History Reviewed.: No Medication/Allergy Home Medications: Insulin Glargine,Hum.rec.anlog [Basaglar Kwikpen U-100] 40 units SQ QHS 04/25/19 Lisinopril/Hydrochlorothiazide [Zestoretic 20-25 mg Tablet] 1 tab PO DAILY 04/25/19 Methadone HCl [Dolophine 10 mg Tablet] 15 mg PO Q8 04/25/19 Oxycodone HCl [Oxycodone HCl 10 MG Tablet] 10 mg PO Q8HP PRN 04/25/19 Sitagliptin Phos/Metformin HCl [Janumet 50-1,000 mg Tablet] 1 tab PO BID Gabapentin [Neurontin 300 mg Capsule] 600 mg PO Q8 capsule 04/26/19 Baclofen [Baclofen 10 mg Tablet] 30 mg PO Q12 05/31/19 Metoprolol Tartrate [Lopressor 50 mg Tablet] 50 mg PO Q12 05/31/19 Allergies/Adverse Reactions: No Known Allergies Allergy (Verified 04/25/19 09:39) Review of Systems Constitutional: ABSENT: chills, fever(s) Eyes: ABSENT: visual disturbances, other - Eye pain Ears: ABSENT: hearing changes, other - Ear pain Nose, Mouth, and Throat: ABSENT: mouth pain, sore throat Cardiovascular: PRESENT: as per HPI, dyspnea on exertion. ABSENT: chest pain, edema, orthropnea, palpitations Respiratory: PRESENT: as per HPI, cough, dyspnea. ABSENT: hemoptysis, sputum Gastrointestinal: ABSENT: abdominal pain, constipation, diarrhea, nausea, vomiting Genitourinary: ABSENT: dysuria, hematuria Musculoskeletal: PRESENT: back pain - Chronic. ABSENT: joint swelling, muscle weakness Integumentary: PRESENT: as per HPI, diaphoresis, wounds - Ongoing treatment for Adeline's gangrene. ABSENT: pruritus, rash Neurological: ABSENT: confusion, convulsions, focal weakness, memory loss, syncope Psychiatric: ABSENT: anxiety, depression Endocrine: ABSENT: cold intolerance, heat intolerance Hematologic/Lymphatic: ABSENT: easy bleeding, easy bruising Physical Exam Vital Signs: Temp Pulse Resp BP Pulse Ox 100.2 F 129 H 21 H 122/61 94 05/31/19 16:37 05/31/19 16:37 05/31/19 18:01 05/31/19 18:01 05/31/19 18:28 Intake & Output 05/29/19 05/30/19 05/31/19 23:59 23:59 23:59 Weight 160.163 kg General appearance: PRESENT: no acute distress, cooperative, morbidly obese, other - Resting comfortably with oxygen at 3 L/min per nasal cannula Head exam: PRESENT: atraumatic, normocephalic Eye exam: PRESENT: conjunctiva pink. ABSENT: conjunctival injection, scleral icterus Ear exam: PRESENT: normal external ear exam. ABSENT: bleeding, drainage Mouth exam: PRESENT: dry mucosa, neck supple Neck exam: ABSENT: JVD, thyromegaly, tracheal deviation Respiratory exam: PRESENT: clear to auscultation dez, decreased breath sounds - Mildly decreased breath sounds throughout all lamb consistent with mild to moderate COPD, prolonged expiratory phas - Minimally prolonged expiratory phase in all lamb, symmetrical, unlabored, wheezes - Minimal expiratory wheezes in all lamb. ABSENT: accessory muscle use, rales, retraction, rhonchi Cardiovascular exam: PRESENT: RRR. ABSENT: clicks, gallop, rubs Pulses: PRESENT: normal radial pulses, normal dorsalis pedis pul Vascular exam: PRESENT: normal capillary refill. ABSENT: pallor GI/Abdominal exam: PRESENT: normal bowel sounds, soft Rectal exam: PRESENT: deferred Extremities exam: ABSENT: joint swelling, pedal edema, tenderness Musculoskeletal exam: PRESENT: other - Decreased range of motion of thoracic spine, status post surgical internal fixation.. ABSENT: deformity, dislocation Neurological exam: PRESENT: alert, awake, oriented to person, oriented to place, oriented to time, oriented to situation, CN II-XII grossly intact. ABSENT: motor sensory deficit Psychiatric exam: PRESENT: appropriate affect, normal mood Skin exam: PRESENT: dry, intact, warm, other - Perineal area (involved with Adeline's gangrene) with clean wound edges, per ERP.. ABSENT: jaundice, rash, urticaria Results Laboratory Results: 05/31/19 16:29 05/31/19 16:29 05/31/19 05/31/19 05/31/19 16:29 16:29 16:29 WBC 12.2 H RBC 3.68 L Hgb 11.9 L Hct 34.7 L MCV 94 MCH 32.4 MCHC 34.4 RDW 16.8 H Plt Count 210 Seg Neutrophils % 80.5 H Lymphocytes % 13.7 Monocytes % 3.6 Eosinophils % 1.3 Basophils % 0.9 Absolute Neutrophils 9.8 H Absolute Lymphocytes 1.7 Absolute Monocytes 0.4 Absolute Eosinophils 0.2 Absolute Basophils 0.1 VBG pH 7.44 H VBG pCO2 34.4 L VBG HCO3 23.0 VBG Base Excess -0.5 Sodium 137.2 Potassium 4.3 Chloride 102 Carbon Dioxide 25 Anion Gap 10 BUN 32 H Creatinine 0.85 Est GFR ( Amer) > 60 Est GFR (Non-Af Amer) > 60 Glucose 199 H Calcium 9.0 Total Bilirubin 1.2 AST 46 ALT 7 L Alkaline Phosphatase 85 Total Protein 7.9 Albumin 3.9 Urine Color Urine Appearance Urine pH Ur Specific [place] Urine Protein Urine Glucose (UA) Urine Ketones Urine Blood Urine Nitrite Ur Leukocyte Esterase Urine WBC (Auto) Urine RBC (Auto) 05/31/19 17:13 WBC RBC Hgb Hct MCV MCH MCHC RDW Plt Count Seg Neutrophils % Lymphocytes % Monocytes % Eosinophils % Basophils % Absolute Neutrophils Absolute Lymphocytes Absolute Monocytes Absolute Eosinophils Absolute Basophils VBG pH VBG pCO2 VBG HCO3 VBG Base Excess Sodium Potassium Chloride Carbon Dioxide Anion Gap BUN Creatinine Est GFR ( Amer) Est GFR (Non-Af Amer) Glucose Calcium Total Bilirubin AST ALT Alkaline Phosphatase Total Protein Albumin Urine Color YELLOW Urine Appearance CLEAR Urine pH 5.0 Ur Specific [place] 1.015 Urine Protein NEGATIVE Urine Glucose (UA) NEGATIVE Urine Ketones NEGATIVE Urine Blood NEGATIVE Urine Nitrite NEGATIVE Ur Leukocyte Esterase NEGATIVE Urine WBC (Auto) 0 Urine RBC (Auto) 1 07/25/19 16:29 Troponin I < 0.012 Impressions: Chest X-Ray 05/31/19 16:24 IMPRESSION: Low lung volumes with patchy, left greater than right, airspace disease suggestive of multifocal pneumonia. Abdomen/Pelvis CT 05/31/19 17:28 IMPRESSION: Cannot exclude dense pulmonary edema. Cannot exclude lower lobe pneumonias. Splenomegaly. Chest/Abdomen CTA 05/31/19 17:28 IMPRESSION: No central pulmonary emboli. Extensive parenchymal opacities throughout both lungs most consistent with pneumonia. Assessment and Plan - Diagnosis (1) Multifocal pneumonia Is this a current diagnosis for this admission?: Yes Plan: The patient's atypical multifocal community-acquired pneumonia will be treated with Rocephin and Zithromax IV. A daily CBC, metabolic profile and magnesium level will be obtained as part of following the patient's daily progress and as sessment of his therapy. (2) Acute respiratory failure with hypoxia Is this a current diagnosis for this admission?: Yes Plan: Patient receive supplemental oxygen and supportive therapy including noninvasive airway pressure support devices such as BiPAP. Patient's O2 sat will be followed closely. (3) COPD exacerbation Is this a current diagnosis for this admission?: Yes Plan: Patient be treated with an aggressive pulmonary toilet utilizing Xopenex, Atrovent and Pulmicort via nebulizer delivery. He will also receive Solu-Medrol intravenously and supplemental oxygen via nasal cannula and or noninvasive pressure support devices such as BiPAP. His O2 sat will be monitored closely throughout his hospital course. Blood gases will be obtained as needed. (4) Hypertension Qualifiers: Hypertension type: essential hypertension Qualified Code(s): I10 - Essential (primary) hypertension Is this a current diagnosis for this admission?: Yes Plan: Patient's hypertension be treated with his usual antihypertensive regimen. His blood pressure be monitored closely throughout his hospital course. (5) Diabetes mellitus type 2 in obese Is this a current diagnosis for this admission?: Yes Plan: Patient be continued on his usual diabetic regiment and a diabetic diet. Before meals and at bedtime blood sugars will be obtained and sliding scale insulin will be given for hyperglycemia. Hypoglycemic regiment will also be in place for use per protocol. Hemoglobin A1c will be obtained to evaluate the patient's current therapy for efficacy. (6) Tobacco abuse Is this a current diagnosis for this admission?: Yes Plan: Smoking cessation has been advised and counseled briefly. A nicotine replacem ent patch will be available for the patient's use. - Time Time Spent with patient: 25-34 minutes Smoking Cessation Education: 3 to 10 minutes Medications reviewed and adjusted accordingly: Yes Anticipated discharge: Home - Inpatient Certification Based on my medical assessment, after consideration of the patient's comorbidities, presenting symptoms, or acuity I expect that the services needed warrant INPATIENT care.: Yes I certify that my determination is in accordance with my understanding of Medicare's requirements for reasonable and necessary INPATIENT services [42 CFR 412.3e].: Yes Medical Necessity: Significant Comorbidiites Make Outpatient Treatment Too Risky, Need Close Monitoring Due to Risk of Patient Decompensation, Need for Nebulizer Therapy and Monitoring of Response, Need for IV Antibiotics, Risk of Complication if Not Cared For in Hospital
--- NOTE | 2019-06-01 00:08 | ADVANCED CARE ---
- Diagnosis (1) Multifocal pneumonia Diagnosis Current: Yes (2) Acute respiratory failure with hypoxia Diagnosis Current: Yes (3) COPD exacerbation Diagnosis Current: Yes (4) Hypertension Diagnosis Current: Yes (5) Diabetes mellitus type 2 in obese Diagnosis Current: Yes (6) Tobacco abuse Diagnosis Current: Yes Attendance: The patient and myself. Resuscitation Status: Full Code Discussion: After brief discussion the patient has determined that he wishes to remain full code for resuscitation status during his current hospitalization. Additionally he has named Marychuy Suggs as his designated surrogate medical decision-maker. Care Planning Goals: 1. Patient will be full CODE STATUS during his hospital course. 2. Marychuy Suggs is the patient's designated surrogate medical decision- maker. Document(s) Completed: The following information will be entered into the patient's permanent medical record, current medical record and current orders via EMR entry: 1. Patient will be full CODE STATUS during his hospital course. 2. Marychuy Suggs is the patient's designated surrogate medical decision- maker. Time Spent: 5 minutes
[2019-06-01] MEDS: METOPROLOL TARTRATE 50 MG TABLET PO SCH ×3 (00:29→21:42)
[2019-06-01] MEDS: OXYCODONE HCL IR 5 MG TABLET PO PRN ×3 (00:34→19:23)
[2019-06-01] MEDS: IPRATROPIUM BROMIDE 0.02% NEB 0.5 MG/2.5 ML AMPUL NEB SCH ×4 (00:39→23:59)
[2019-06-01] MEDS: LEVALBUTEROL HCL NEB 1.25 MG/3 ML AMPUL NEB SCH ×4 (00:39→23:59)
[2019-06-01] MEDS: METHADONE HCL 10 MG TABLET PO SCH ×3 (05:21→21:41)
[2019-06-01] MEDS: GABAPENTIN 300 MG CAPSULE PO SCH ×3 (05:21→21:41)
[2019-06-01] MEDS: BACLOFEN 10 MG TABLET PO SCH ×3 (05:21→21:40)
[2019-06-01] MEDS: METHYLPREDNISOLONE INJ 40 MG/1 ML SDV IV SCH ×3 (05:21→21:42)
[2019-06-01] MEDS: PANTOPRAZOLE SODIUM 40 MG TABLET.DR PO SCH ×2 (05:21→16:06)
[2019-06-01] MEDS: HEPARIN SOD (PORCINE) 5,000 UNIT/ML 1 ML VIAL SUBCUT SCH ×3 (05:22→21:42)
[2019-06-01 05:54] LABS: VENOUS BLOOD BASE EXCESS -0.2 mmol/L; VENOUS BLOOD HCO3 25.6 mmol/L (20-32); VENOUS BLOOD PH 7.36 (7.30-7.42)
[2019-06-01 06:01] LABS: HEMOGLOBIN 10.7 g/dL (13.5-17.0); MEAN CORPUSCULAR HEMOGLOBIN 32.9 pg (27.0-33.4); MEAN CORPUSCULAR HGB CONC 34.6 g/dL (32.0-36.0); MEAN CORPUSCULAR VOLUME 95 fl (80-97); PLATELET COUNT 181 10^3/uL (150-450); RED BLOOD COUNT 3.26 10^6/uL (4.35-5.55); RED CELL DISTRIBUTION WIDTH 16.6 % (11.5-14.0); WHITE BLOOD COUNT 6.5 10^3/uL (4.0-10.5)
[2019-06-01 06:16] LABS: ANION GAP 11 (5-19); BLOOD UREA NITROGEN 23 mg/dL (7-20); CALCIUM 8.7 mg/dL (8.4-10.2); CARBON DIOXIDE 25 mmol/L (22-30); CHLORIDE 100 mmol/L (98-107); CHOLESTEROL 109.03 mg/dL (0-200); GLUCOSE 186 mg/dL (75-110); POTASSIUM 4.4 mmol/L (3.6-5.0); TRIGLYCERIDES 138 mg/dL (<150)
[2019-06-01 06:27] LABS: DIRECT LDL 78 mg/dL (<100)
[2019-06-01 06:32] LABS: FREE T3 2.33 pg/mL (2.77-5.27); FREE T4 (FREE THYROXINE) 1.49 ng/dL (0.78-2.19)
[2019-06-01 06:46] LABS: THYROID STIMULATING HORMONE 0.36 uIU/mL (0.47-4.68)
[2019-06-01] MEDS: BUDESONIDE NEB 0.5 MG/2 ML AMPUL NEB SCH ×2 (07:20→20:40)
[2019-06-01] MEDS: INSULIN REG, HUMAN 100 UNIT/ML 3 ML VIAL (PYX) SUBCUT PRN ×2 (07:39→21:43)
[2019-06-01] MEDS: METFORMIN HCL 500 MG TABLET PO SCH ×2 (07:40→16:06)
[2019-06-01] MEDS: LISINOPRIL 10 MG TABLET PO SCH (09:16)
[2019-06-01] MEDS: HYDROCHLOROTHIAZIDE 25 MG TABLET PO SCH (09:16)
[2019-06-01] MEDS: GUAIFENESIN 600 MG TABLET.SA PO SCH ×2 (09:16→21:41)
[2019-06-01] MEDS: SITAGLIPTIN PHOSPHATE 50 MG TABLET PO SCH ×2 (09:16→16:06)
[2019-06-01] MEDS ORDERED: (PENDING PHARMACY ID) (Lisinopril/Hydrochlorothiazide [Zestoretic 20-25 Mg Tablet] 1 TAB) PO SCH (10:00)
[2019-06-01] MEDS ORDERED: (PENDING PHARMACY ID) (Sitagliptin Phos/Metformin Hcl [Janumet 50-1,000 Mg Tablet] 1 TAB) PO SCH (10:00)
--- NOTE | 2019-06-01 10:02 | Progress Note Acknowledgement ---
Progress Note Acknowledgement Progess Note Acknowledgement: I, the undersigned member of the medical staff with appropriate privileges and with supervisory authority over [ PAC], a dependent practice allied health professional, acknowledge that I have reviewed the progress notes entered on this patient, and in my professional judgment believe that the assessment made and/or any care evidenced was appropriate
[2019-06-01] MEDS: CEFTRIAXONE SODIUM 1,000 MG in DEXTROSE 5%-WATER 50 ML IV SCH (17:09)
[2019-06-01] MEDS: LEVALBUTEROL HCL NEB 0.63 MG/3 ML AMPUL NEB PRN (20:40)
[2019-06-01] MEDS: AZITHROMYCIN 500 MG in DEXTROSE 5%-WATER 250 ML IV SCH (21:42)
[2019-06-01] MEDS ORDERED: INSULIN GLARGINE HUM REC ANLOG 40 UNIT SQ SCH (22:00)
[2019-06-01] MEDS ORDERED: [UNRECOGNIZED DRUG - OTHER] SQ SCH (22:00)
[2019-06-02] MEDS: OXYCODONE HCL IR 5 MG TABLET PO PRN ×2 (03:13→11:44)
[2019-06-02 04:57] LABS: HEMATOCRIT 30.9 % (37.9-51.0); HEMOGLOBIN 10.7 g/dL (13.5-17.0); MEAN CORPUSCULAR HEMOGLOBIN 32.9 pg (27.0-33.4); MEAN CORPUSCULAR HGB CONC 34.4 g/dL (32.0-36.0); MEAN CORPUSCULAR VOLUME 96 fl (80-97); PLATELET COUNT 174 10^3/uL (150-450); RED BLOOD COUNT 3.24 10^6/uL (4.35-5.55); WHITE BLOOD COUNT 9.4 10^3/uL (4.0-10.5)
[2019-06-02 05:19] LABS: ANION GAP 10 (5-19); BLOOD UREA NITROGEN 28 mg/dL (7-20); CALCIUM 8.6 mg/dL (8.4-10.2); CARBON DIOXIDE 24 mmol/L (22-30); CHLORIDE 103 mmol/L (98-107); GLUCOSE 224 mg/dL (75-110); POTASSIUM 4.2 mmol/L (3.6-5.0)
[2019-06-02] MEDS: METHADONE HCL 10 MG TABLET PO SCH ×3 (06:42→21:46)
[2019-06-02] MEDS: GABAPENTIN 300 MG CAPSULE PO SCH ×3 (06:43→21:46)
[2019-06-02] MEDS: PANTOPRAZOLE SODIUM 40 MG TABLET.DR PO SCH ×2 (06:43→16:24)
[2019-06-02] MEDS: BACLOFEN 10 MG TABLET PO SCH ×3 (06:43→21:47)
[2019-06-02] MEDS: METHYLPREDNISOLONE INJ 40 MG/1 ML SDV IV SCH ×2 (06:44→13:14)
[2019-06-02] MEDS: HEPARIN SOD (PORCINE) 5,000 UNIT/ML 1 ML VIAL SUBCUT SCH ×3 (06:44→21:45)
[2019-06-02] MEDS: LEVALBUTEROL HCL NEB 1.25 MG/3 ML AMPUL NEB SCH ×2 (08:13→16:04)
[2019-06-02] MEDS: IPRATROPIUM BROMIDE 0.02% NEB 0.5 MG/2.5 ML AMPUL NEB SCH ×2 (08:13→16:04)
[2019-06-02] MEDS: BUDESONIDE NEB 0.5 MG/2 ML AMPUL NEB SCH ×2 (08:13→19:33)
[2019-06-02] MEDS: HYDROCHLOROTHIAZIDE 25 MG TABLET PO SCH (09:22)
[2019-06-02] MEDS: LISINOPRIL 10 MG TABLET PO SCH (09:22)
[2019-06-02] MEDS: GUAIFENESIN 600 MG TABLET.SA PO SCH ×2 (09:23→21:46)
[2019-06-02] MEDS: METOPROLOL TARTRATE 50 MG TABLET PO SCH ×2 (09:23→21:48)
[2019-06-02] MEDS: METFORMIN HCL 500 MG TABLET PO SCH ×2 (09:23→16:24)
[2019-06-02] MEDS: SITAGLIPTIN PHOSPHATE 50 MG TABLET PO SCH ×2 (09:23→16:24)
[2019-06-02] MEDS: INSULIN REG, HUMAN 100 UNIT/ML 3 ML VIAL (PYX) SUBCUT PRN ×3 (11:45→21:49)
--- NOTE | 2019-06-02 12:42 | PDOC PROGRESS REPORT ---
Subjective Progress Note for:: 06/02/19 Subjective:: 06/01/2019 Patient was admitted last night for new onset pneumonia x1 day patient states yesterday morning he started getting more short of breath and his oxygen satur ation went down to 88%. Patient states that his oxygen saturation is normally 98%. He also states that he is had a dry cough the last couple of days. Patient denies fever chills. On admission CT scan of the chest showed probable pneumonia. Patient is now admitted to the hospital for IV antibiotics, daily labs. Patient is medically stable at this time. 06/02/2019 patient's vital signs are stable he is afebrile O2 sats are running around 93% 2 L. Patient is asking to go home. Patient was just in the hospital about a month ago for the same problem. I told him he needs to stay and give us more time with IV antibiotics. CBC is improving. Glucose levels are around 200 or less. Plan is to get the patient up and walking and check his saturation on room air to see if he qualifies for home O2 repeat labs and reevaluate again in the morning. Psych consult is pending at the request of Adult Protective Services Reason For Visit: PNEUMONIA Physical Exam Vital Signs: Temp Pulse Resp BP Pulse Ox 97.5 F 66 19 108/42 L 100 06/02/19 08:28 06/02/19 08:28 06/02/19 08:28 06/02/19 08:28 06/02/19 08:28 Pulse Oximeter Continuous Start: 05/31/19 20: 38 Freq: RTQ4 Status: Active Protocol: Document 06/02/19 08:13 [facility] (Rec: 06/02/19 11:14 [facility] [id number]) Pulse Oximetry Assessment Oxygen Saturation (92-100) 92 Oxygen Flow Rate (L/min) 2 Oxygen Delivery Method Nasal Cannula Equipment Usage Equipment in Use Continuous SpO2 Machine # 13 Intake & Output 06/01/19 06/02/19 06/03/19 06:59 06:59 06:59 Intake Total 300 2100 Output Total 350 1100 Balance -50 1000 Weight 152.9 kg 153.1 kg General appearance: PRESENT: no acute distress, well-developed, well-nourished Respiratory exam: PRESENT: rhonchi, wheezes, other - Decreased breath sounds Cardiovascular exam: PRESENT: RRR. ABSENT: diastolic murmur, rubs, systolic murmur Neurological exam: PRESENT: alert, awake, oriented to person, oriented to place, oriented to time, oriented to situation, CN II-XII grossly intact. ABSENT: motor sensory deficit Psychiatric exam: PRESENT: anxious, other - Patient does not really seem to grasp the concept of how sick he is. I have had to convince him after talking to him to stay in the hospital at least 1 more day. Results Laboratory Results: 06/02/19 04:02 06/02/19 04:02 06/02/19 06/02/19 04:02 04:02 WBC 9.4 RBC 3.24 L Hgb 10.7 L Hct 30.9 L MCV 96 MCH 32.9 MCHC 34.4 RDW 16.0 H Plt Count 174 Sodium 136.9 L Potassium 4.2 Chloride 103 Carbon Dioxide 24 Anion Gap 10 BUN 28 H Creatinine 0.69 Est GFR ( Amer) > 60 Est GFR (Non-Af Amer) > 60 Glucose 224 H Calcium 8.6 Magnesium 2.0 05/31/19 16:29 Troponin I < 0.012 Impressions: Chest X-Ray 05/31/19 16:24 IMPRESSION: Low lung volumes with patchy, left greater than right, airspace disease suggestive of multifocal pneumonia. Abdomen/Pelvis CT 05/31/19 17:28 IMPRESSION: Cannot exclude dense pulmonary edema. Cannot exclude lower lobe pneumonias. Splenomegaly. Chest/Abdomen CTA 05/31/19 17:28 IMPRESSION: No central pulmonary emboli. Extensive parenchymal opacities throughout both lungs most consistent with pneumonia. Assessment and Plan - Diagnosis (1) COPD exacerbation Is this a current diagnosis for this admission?: Yes Plan: Patient be treated with an aggressive pulmonary toilet utilizing Xopenex, Atrovent and Pulmicort via nebulizer delivery. He will also receive Solu-Medrol intravenously and supplemental oxygen via nasal cannula and or noninvasive pressure support devices such as BiPAP. His O2 sat will be monitored closely throughout his hospital course. Blood gases will be obtained as needed. 06/01/2019 as above. Patient is feeling much better no respiratory distress continue BiPAP 06/02/2019 patient is breathing much better and his sats are up to 93% or higher on 2 L of oxygen ,no signs of respiratory distress (2) DVT prophylaxis Is this a current diagnosis for this admission?: Yes Plan: Patient is being treated prophylactically. 06/01/2019 06/02/2019 no signs of DVT (3) Hypoxia Is this a current diagnosis for this admission?: Yes Plan: 06/01/2019 O2 sat is 93% on BiPAP 06/02/2019 patient is off the BiPAP sats are about 93% or higher on 2 L of nasal cannula (4) Morbid obesity with BMI of 40.0-44.9, adult Is this a current diagnosis for this admission?: No (5) Multifocal pneumonia Is this a current diagnosis for this admission?: Yes Plan: The patient's atypical multifocal community-acquired pneumonia will be treated with Rocephin and Zithromax IV. A daily CBC, metabolic profile and magnesium level will be obtained as part of following the patient's daily progress and assessment of his therapy. 06/01/2019 his white count is come down from 12.2-6.5 patient will be maintained on IV antibiotics for another 24 hours 06/02/2019 patient is on IV antibiotics day #2 (6) Acute and chronic respiratory failure ([id number]) Is this a current diagnosis for this admission?: No (7) Acute respiratory failure with hypoxia Is this a current diagnosis for this admission?: No - Time Time Spent with patient: 25-34 minutes - I had to spend extra time with the patient to convince him to stay in the hospital at least another 24 hours
[2019-06-02] MEDS: CEFTRIAXONE SODIUM 1,000 MG in DEXTROSE 5%-WATER 50 ML IV SCH (17:45)
[2019-06-02] MEDS: LEVALBUTEROL HCL NEB 0.63 MG/3 ML AMPUL NEB PRN (19:33)
[2019-06-02] MEDS: AZITHROMYCIN 500 MG in DEXTROSE 5%-WATER 250 ML IV SCH (21:49)
[2019-06-03 00:08] VITALS: BP 130/63
[2019-06-03] MEDS: LEVALBUTEROL HCL NEB 1.25 MG/3 ML AMPUL NEB SCH ×2 (00:18→08:13)
[2019-06-03] MEDS: IPRATROPIUM BROMIDE 0.02% NEB 0.5 MG/2.5 ML AMPUL NEB SCH ×2 (00:18→08:13)
[2019-06-03] MEDS: OXYCODONE HCL IR 5 MG TABLET PO PRN (01:04)
[2019-06-03 05:15] LABS: HEMATOCRIT 32.8 % (37.9-51.0); HEMOGLOBIN 11.4 g/dL (13.5-17.0); MEAN CORPUSCULAR HEMOGLOBIN 32.9 pg (27.0-33.4); MEAN CORPUSCULAR HGB CONC 34.7 g/dL (32.0-36.0); MEAN CORPUSCULAR VOLUME 95 fl (80-97); PLATELET COUNT 174 10^3/uL (150-450); RED BLOOD COUNT 3.46 10^6/uL (4.35-5.55); RED CELL DISTRIBUTION WIDTH 16.3 % (11.5-14.0)
[2019-06-03 05:38] LABS: ANION GAP 9 (5-19); BLOOD UREA NITROGEN 30 mg/dL (7-20); CALCIUM 8.6 mg/dL (8.4-10.2); CARBON DIOXIDE 24 mmol/L (22-30); CHLORIDE 106 mmol/L (98-107); GLUCOSE 160 mg/dL (75-110); POTASSIUM 4.1 mmol/L (3.6-5.0)
[2019-06-03] MEDS: HEPARIN SOD (PORCINE) 5,000 UNIT/ML 1 ML VIAL SUBCUT SCH ×2 (05:50→13:24)
[2019-06-03] MEDS: METHADONE HCL 10 MG TABLET PO SCH ×2 (05:59→13:35)
[2019-06-03] MEDS: GABAPENTIN 300 MG CAPSULE PO SCH ×2 (05:59→13:35)
[2019-06-03] MEDS: PANTOPRAZOLE SODIUM 40 MG TABLET.DR PO SCH (05:59)
[2019-06-03] MEDS: BACLOFEN 10 MG TABLET PO SCH ×2 (06:00→13:35)
[2019-06-03] MEDS: BUDESONIDE NEB 0.5 MG/2 ML AMPUL NEB SCH (08:13)
[2019-06-03] MEDS: SITAGLIPTIN PHOSPHATE 50 MG TABLET PO SCH (09:01)
[2019-06-03] MEDS: METFORMIN HCL 500 MG TABLET PO SCH (09:01)
[2019-06-03] MEDS: HYDROCHLOROTHIAZIDE 25 MG TABLET PO SCH (09:01)
[2019-06-03] MEDS: GUAIFENESIN 600 MG TABLET.SA PO SCH (09:02)
[2019-06-03] MEDS: METOPROLOL TARTRATE 50 MG TABLET PO SCH (09:02)
[2019-06-03] MEDS: LISINOPRIL 10 MG TABLET PO SCH (09:04)
[2019-06-03] MEDS ORDERED: CEFTRIAXONE SODIUM 1,000 MG in DEXTROSE 5%-WATER 50 ML IV ONE ×2 (11:45→12:30)
[2019-06-03] MEDS ORDERED: AZITHROMYCIN 500 MG in DEXTROSE 5%-WATER 250 ML IV ONE ×2 (12:00→13:00)
--- NOTE | 2019-06-07 12:48 | PDOC DISCHARGE SUMMARY ---
General - Admit/Disc Date/PCP Admission Date/Primary Care Provider: 05/31/19 20:03 NALLELY COLINDRES PA-C Discharge Date: 06/03/19 - Discharge Diagnosis (1) COPD exacerbation Is this a current diagnosis for this admission?: Yes Summary: 06/03/2019 patient states that he has had numerous episodes of COPD exacerbations patient states that recently he has had a nonproductive cough and increased shortness of breath (2) DVT prophylaxis Is this a current diagnosis for this admission?: No (3) Hypoxia Is this a current diagnosis for this admission?: Yes Summary: 06/03/2019 O2 sat on room air when he came in was 72. Following BiPAP in the emergency room patient sat came up to 94%. (4) Morbid obesity with BMI of 40.0-44.9, adult Is this a current diagnosis for this admission?: No (5) Multifocal pneumonia Is this a current diagnosis for this admission?: Yes Summary: 06/03/[address] scan of his chest on 725 that showed diffuse parenchymal opacities throughout both lungs and air bronchograms consistent with pneumonia no evidence of pulmonary emboli (6) Acute and chronic respiratory failure ([id number]) Is this a current diagnosis for this admission?: No (7) Acute respiratory failure with hypoxia Is this a current diagnosis for this admission?: No - Additional Information Resuscitation Status: Full Code Discharge Diet: As Tolerated Discharge Activity: Balance Activity w/Rest Prescriptions: Azithromycin [Zithromax Inj 500 mg Vial] 500 mg PO QHS #7 vial Metformin HCl [Glucophage 500 mg Tablet] 1,000 mg PO BIDACBS 30 Days #60 tablet Home Medications: Insulin Glargine,Hum.rec.anlog [Basaglar Kwikpen U-100] 40 units SQ QHS 04/25/19 Lisinopril/Hydrochlorothiazide [Zestoretic 20-25 mg Tablet] 1 tab PO DAILY 04/25 Methadone HCl [Dolophine 10 mg Tablet] 15 mg PO Q8 04/25/19 Oxycodone HCl [Oxycodone HCl 10 MG Tablet] 10 mg PO Q8HP PRN 04/25/19 Sitagliptin Phos/Metformin HCl [Janumet 50-1,000 mg Tablet] 1 tab PO BID 04/25/19 Gabapentin [Neurontin 300 mg Capsule] 600 mg PO Q8 capsule 04/26/19 Baclofen [Baclofen 10 mg Tablet] 30 mg PO Q12 05/31/19 Metoprolol Tartrate [Lopressor 50 mg Tablet] 50 mg PO Q12 05/31/19 Azithromycin [Zithromax Inj 500 mg Vial] 500 mg PO QHS #7 vial 06/03/19 Gabapentin [Neurontin 300 mg Capsule] 600 mg PO Q8 capsule 06/03/19 Metformin HCl [Glucophage 500 mg Tablet] 1,000 mg PO BIDACBS 30 Days #60 tablet 06/03/19 Methadone HCl [Dolophine 10 mg Tablet] 15 mg PO Q8 tablet 06/03/19 Sitagliptin Phosphate [Januvia 50 mg Tablet] 50 mg PO BIDACBS tablet 06/03/19 History of Present Illness Patient complains of: Shortness of breath History of Present Illness: ANKIT MERCER is a 38 year old male who was admitted through the emergency room for 1 day history of worsening of shortness of breath patient also states he had a nonproductive cough patient was just in the hospital about a month ago for similar symptoms. Hospital Course Hospital Course: Patient was seen in the emergency room where he was diagnosed with COPD exacerbation and probable pneumonia patient was placed on BiPAP as well as 3 L of oxygen by nasal cannula on admission his white count was 12,200. CT scan was suggestive of multifocal pneumonia Patient in the hospital was treated with Rocephin and Zithromax IV total time of discharge and then discharged home on Zithromax though 7 more days Physical Exam Vital Signs: Temp Pulse Resp BP Pulse Ox 98.4 F 76 16 130/63 H 92 06/03/19 13:12 06/03/19 13:12 06/03/19 13:12 06/03/19 13:12 06/03/19 13:12 Pulse Oximeter Continuous Start: 05/31/19 20:38 Freq: RTQ4 Status: Discharge Protocol: Document 06/03/19 08:13 [facility] (Rec: 06/03/19 14:16 [facility] [id number]) Pulse Oximetry Assessment Oxygen Saturation (92-100) 93 Oxygen Flow Rate (L/min) 1 Oxygen Delivery Method Nasal Cannula Fraction of Inspired Oxygen (FIO2) 24 Equipment Usage Equipment in Use Continuous SpO2 Machine # 13 Intake & Output 06/02/19 06/03/19 06/04/19 06:59 06:59 06:59 Intake Total 2100 2548 50 Output Total 1100 1650 Balance 1000 898 50 Weight 153.1 kg 152.8 kg General appearance: PRESENT: no acute distress, well-developed, well-nourished Respiratory exam: PRESENT: decreased breath sounds - Due to obesity, rhonchi Cardiovascular exam: PRESENT: RRR. ABSENT: diastolic murmur, rubs, systolic murmur Neurological exam: PRESENT: alert, awake, oriented to person, oriented to place, oriented to time, oriented to situation, CN II-XII grossly intact. ABSENT: motor sensory deficit Psychiatric exam: PRESENT: appropriate affect, normal mood. ABSENT: homicidal ideation, suicidal ideation Results Laboratory Results: 06/03/19 04:18 06/03/19 04:18 06/03/19 06/03/19 04:18 04:18 WBC 8.0 RBC 3.46 L Hgb 11.4 L Hct 32.8 L MCV 95 MCH 32.9 MCHC 34.7 RDW 16.3 H Plt Count 174 Sodium 138.8 Potassium 4.1 Chloride 106 Carbon Dioxide 24 Anion Gap 9 BUN 30 H Creatinine 0.76 Est GFR ( Amer) > 60 Est GFR (Non-Af Amer) > 60 Glucose 160 H Calcium 8.6 Magnesium 2.0 05/31/19 16:29 Troponin I < 0.012 Impressions: Chest X-Ray 05/31/19 16:24 IMPRESSION: Low lung volumes with patchy, left greater than right, airspace disease suggestive of multifocal pneumonia. Abdomen/Pelvis CT 05/31/19 17:28 IMPRESSION: Cannot exclude dense pulmonary edema. Cannot exclude lower lobe pneumonias. Splenomegaly. Chest/Abdomen CTA 05/31/19 17:28 IMPRESSION: No central pulmonary emboli. Extensive parenchymal opacities throughout both lungs most consistent with pneumonia. Qualifiers - * VTE patient discharged on overlapping Therapy?: No Acute Heart Failure - Is this a Heart Failure Patient?: No Plan Discharge Plan: 06/03/2018 patient was discharged home on 7 more days of p.o. Zithromax 50 mg each tablet patient was seen by discharge planning prior to discharge. Discharge planning made arrangements for him to have home O2 as he qualified for this Patient was told to follow-up with his primary care provider within the next 7 to 10 days Time Spent: Greater than 30 Minutes
--- NOTE | 2019-06-07 12:48 | PDOC PROGRESS REPORT ---
Subjective Progress Note for:: 06/01/19 Subjective:: 06/01/2019 Patient was admitted last night for new onset pneumonia x1 day patient states yesterday morning he started getting more short of breath and his oxygen satur ation went down to 88%. Patient states that his oxygen saturation is normally 98%. He also states that he is had a dry cough the last couple of days. Patient denies fever chills. On admission CT scan of the chest showed probable pneumonia. Patient is now admitted to the hospital for IV antibiotics, daily labs. Patient is medically stable at this time. Reason For Visit: PNEUMONIA Physical Exam Vital Signs: Temp Pulse Resp BP Pulse Ox 97.5 F 82 22 H 127/61 H 93 06/01/19 07:57 06/01/19 07:57 06/01/19 07:57 06/01/19 07:57 06/01/19 07:57 Pulse Oximeter Continuous Start: 05/31/19 20:38 Freq: RTQ4 Status: Active Protocol: Document 06/01/19 04:57 [facility] (Rec: 06/01/19 04:58 [facility] [id number]) Pulse Oximetry Assessment Oxygen Saturation (92-100) 91 Oxygen Flow Rate (L/min) 2 Oxygen Delivery Method Nasal Cannula Equipment Usage Equipment in Use Continuous SpO2 Machine # 13 Additional RT Notes Other Patient indicated he took off his bipap approximately 10 minutes before this visit. Intake & Output 05/31/19 06/01/19 06/02/19 06:59 06:59 06:59 Intake Total 300 Output Total 350 Balance -50 Weight 152.9 kg General appearance: PRESENT: no acute distress, well-developed, well-nourished, other - Patient is sleeping but arouses easily, with a BiPAP machine in place Head exam: PRESENT: atraumatic, normocephalic Respiratory exam: PRESENT: clear to auscultation dez, other - Decreased breath sounds due to obesity. ABSENT: rales, rhonchi, wheezes Cardiovascular exam: PRESENT: RRR. ABSENT: diastolic murmur, rubs, systolic murmur Neurological exam: PRESENT: alert, awake, oriented to person, oriented to place, oriented to time, oriented to situation, CN II-XII grossly intact. ABSENT: motor sensory deficit Psychiatric exam: PRESENT: appropriate affect, normal mood. ABSENT: homicidal ideation, suicidal ideation Results Laboratory Results: 06/01/19 05:40 06/01/19 05:40 05/31/19 05/31/19 05/31/19 16:29 16:29 16:29 WBC 12.2 H RBC 3.68 L Hgb 11.9 L Hct 34.7 L MCV 94 MCH 32.4 MCHC 34.4 RDW 16.8 H Plt Count 210 Seg Neutrophils % 80.5 H Lymphocytes % 13.7 Monocytes % 3.6 Eosinophils % 1.3 Basophils % 0.9 Absolute Neutrophils 9.8 H Absolute Lymphocytes 1.7 Absolute Monocytes 0.4 Absolute Eosinophils 0.2 Absolute Basophils 0.1 VBG pH 7.44 H VBG pCO2 34.4 L VBG HCO3 23.0 VBG Base Excess -0.5 Sodium 137.2 Potassium 4.3 Chloride 102 Carbon Dioxide 25 Anion Gap 10 BUN 32 H Creatinine 0.85 Est GFR ( Amer) > 60 Est GFR (Non-Af Amer) > 60 Glucose 199 H Calcium 9.0 Magnesium Total Bilirubin 1.2 AST 46 ALT 7 L Alkaline Phosphatase 85 Total Protein 7.9 Albumin 3.9 Triglycerides Cholesterol LDL Cholesterol Direct VLDL Cholesterol HDL Cholesterol TSH Free T4 Free T3 pg/mL Urine Color Urine Appearance Urine pH Ur Specific [place] Urine Protein Urine Glucose (UA) Urine Ketones Urine Blood Urine Nitrite Ur Leukocyte Esterase Urine WBC (Auto) Urine RBC (Auto) 05/31/19 06/01/19 06/01/19 17:13 05:40 05:40 WBC 6.5 RBC 3.26 L Hgb 10.7 L Hct 31.0 L MCV 95 MCH 32.9 MCHC 34.6 RDW 16.6 H Plt Count 181 Seg Neutrophils % Lymphocytes % Monocytes % Eosinophils % Basophils % Absolute Neutrophils Absolute Lymphocytes Absolute Monocytes Absolute Eosinophils Absolute Basophils VBG pH VBG pCO2 VBG HCO3 VBG Base Excess Sodium Potassium Chloride Carbon Dioxide Anion Gap BUN Creatinine Est GFR ( Amer) Est GFR (Non-Af Amer) Glucose Calcium Magnesium Total Bilirubin AST ALT Alkaline Phosphatase Total Protein Albumin Triglycerides Cholesterol LDL Cholesterol Direct VLDL Cholesterol HDL Cholesterol TSH 0.36 L Free T4 1.49 Free T3 pg/mL 2.33 L Urine Color YELLOW Urine Appearance CLEAR Urine pH 5.0 Ur Specific [place] 1.015 Urine Protein NEGATIVE Urine Glucose (UA) NEGATIVE Urine Ketones NEGATIVE Urine Blood NEGATIVE Urine Nitrite NEGATIVE Ur Leukocyte Esterase NEGATIVE Urine WBC (Auto) 0 Urine RBC (Auto) 1 06/01/19 06/01/19 05:40 05:40 WBC RBC Hgb Hct MCV MCH MCHC RDW Plt Count Seg Neutrophils % Lymphocytes % Monocytes % Eosinophils % Basophils % Absolute Neutrophils Absolute Lymphocytes Absolute Monocytes Absolute Eosinophils Absolute Basophils VBG pH 7.36 VBG pCO2 46.0 VBG HCO3 25.6 VBG Base Excess -0.2 Sodium 136.4 L Potassium 4.4 Chloride 100 Carbon Dioxide 25 Anion Gap 11 BUN 23 H Creatinine 0.64 Est GFR ( Amer) > 60 Est GFR (Non-Af Amer) > 60 Glucose 186 H Calcium 8.7 Magnesium 1.9 Total Bilirubin AST ALT Alkaline Phosphatase Total Protein Albumin Triglycerides 138 Cholesterol 109.03 LDL Cholesterol Direct 78 VLDL Cholesterol 28.0 HDL Cholesterol 19 L TSH Free T4 Free T3 pg/mL Urine Color Urine Appearance Urine pH Ur Specific [place] Urine Protein Urine Glucose (UA) Urine Ketones Urine Blood Urine Nitrite Ur Leukocyte Esterase Urine WBC (Auto) Urine RBC (Auto) 05/31/19 16:29 Troponin I < 0.012 Impressions: Chest X-Ray 05/31/19 16:24 IMPRESSION: Low lung volumes with patchy, left greater than right, airspace disease suggestive of multifocal pneumonia. Abdomen/Pelvis CT 05/31/19 17:28 IMPRESSION: Cannot exclude dense pulmonary edema. Cannot exclude lower lobe pneumonias. Splenomegaly. Chest/Abdomen CTA 05/31/19 17:28 IMPRESSION: No central pulmonary emboli. Extensive parenchymal opacities throughout both lungs most consistent with pneumonia. Assessment and Plan - Diagnosis (1) COPD exacerbation Is this a current diagnosis for this admission?: Yes Plan: Patient be treated with an aggressive pulmonary toilet utilizing Xopenex, Atrovent and Pulmicort via nebulizer delivery. He will also receive Solu-Medrol intravenously and supplemental oxygen via nasal cannula and or noninvasive pressure support devices such as BiPAP. His O2 sat will be monitored closely throughout his hospital course. Blood gases will be obtained as needed. 12/02/2018 as above. Patient is feeling much better no respiratory distress continue BiPAP (2) DVT prophylaxis Is this a current diagnosis for this admission?: Yes Plan: Patient is being treated prophylactically. 06/01/2019 (3) Hypoxia Is this a current diagnosis for this admission?: Yes Plan: 06/01/2019 O2 sat is 93% on BiPAP (4) Morbid obesity with BMI of 40.0-44.9, adult Is this a current diagnosis for this admission?: Yes Plan: 06/01/2019 patient's daily weights will be monitored (5) Multifocal pneumonia Is this a current diagnosis for this admission?: Yes Plan: The patient's atypical multifocal community-acquired pneumonia will be treated with Rocephin and Zithromax IV. A daily CBC, metabolic profile and magnesium level will be obtained as part of following the patient's daily progress and assessment of his therapy. 06/01/2019 his white count is come down from 12.2-6.5 patient will be maintained on IV antibiotics for another 24 hours (6) Acute and chronic respiratory failure ([id number]) Is this a current diagnosis for this admission?: No Plan: 06/01/2019 no sign of respiratory failure at this time (7) Acute respiratory failure with hypoxia Is this a current diagnosis for this admission?: Yes - Time Time Spent with patient: 15-24 minutes
== END 2019-06-03 15:54 | disposition home or self-care (01) | DRG 193 ==
LOC: ER 16:18 → EH 20:03 → 4N 23:13
PROVIDERS: ADMIT Emergency Medicine; ATTEND Emergency Medicine
PROC: 5A09457 Assistance with Respiratory Ventilation, 24-96 Consecutive Hours, Continuous Positive Airway Pressure (ICD-10-PCS; principal; 2019-05-31)
DX: J18.9 Pneumonia, unspecified organism (principal); J96.21 Acute and chronic respiratory failure with hypoxia; Z68.41 Body mass index [BMI] 40.0-44.9, adult; J44.0 Chronic obstructive pulmonary disease with (acute) lower respiratory infection; J44.1 Chronic obstructive pulmonary disease with (acute) exacerbation; E11.65 Type 2 diabetes mellitus with hyperglycemia; E66.01 Morbid (severe) obesity due to excess calories; I10 Essential (primary) hypertension; F17.210 Nicotine dependence, cigarettes, uncomplicated; M19.90 Unspecified osteoarthritis, unspecified site; F32.9 Major depressive disorder, single episode, unspecified; F41.1 Generalized anxiety disorder; Z79.4 Long term (current) use of insulin
CPT/HCPCS: 36415; 71045; 71275; 74177; 80048; 80053; 80061; 81001; 82803; 82962; 83036; 83605; 83735; 84439; 84443; 84481; 84484; 85025; 85027; 87040; 93005; 93010; 94640; 94660; 94762; 96365; 99285; 99406; J0456; J0696; J1815; J2920; J3490; J7060; J7614